=== PATIENT | female | born 1950 | race Caucasian/White ===

== ENCOUNTER 2023-07-29 10:04 | Outpatient (AMB) | payer MEDICARE, MEDICAID, SELFPAY ==
--- NOTE | 2023-07-29 10:22 | MHC.OFFVIS ---
Intake Intake Visit Reasons: Recurrent UTIs Intake Note: New Patient presents for initial visit for recurrent uti Urology Medications: myrbetriq Blood Thinner: none PVR: 1ml's Air Traffic Control Manager Required: No Accompanied by: Self / Same As Patient Allergies Sulfa (Sulfonamide Antibiotics) Allergy (Verified 07/29/23 11:01) Unknown latex Allergy (Uncoded 07/29/23 11:01) Unknown Medication List - Last Reconciled 07/29/23 by RITESH Baldwin- mirabegron ER (Myrbetriq) 25 mg PO DAILY oxycodone 10 mg PO QID PRN oxycodone ER (OxyContin) 10 mg PO BID HPI HPI Comments History of Present Illness Details Hilda is a very pleasant 9-year-old female patient of Dr. Todd Lizarraga. Just past medical history of fibromyalgia and arthritis. She presents to the office today as a new patient for recurrent urinary tract infections. Patient reports noting over the last 2-3 months to have had approximately 5 urinary tract infections at which time for of them were treated with her PCP. She reports approximately a few weeks ago seeking urgent care services and found to have another urinary tract infection and completed antibiotic therapy approximately 1 week ago. She currently reports intermittent episodes of dysuria and bladder pressure. She otherwise denies denies urinary urgency, urinary frequency, incontinence, nocturia, hematuria, foul smelling urine, changes to urinary stream, flank pain, fever, and or chills. She reports having started Myrbetriq with her PCP. In office urinalysis results reviewed with the patient today. PVR 1 mL. Discussed at length potential causes for recurrent urinary tract infections. She denies any issues with constipation and reports to be drinking plenty of water daily. Discussed obtaining retroperitoneal ultrasound for further assessment evaluation. [facility] Medical History Fibromyalgia Arthritis Surgical History Hx of appendectomy History of hysterectomy History of cholecystectomy Review of Systems Const All systems reviewed & are unremarkable except as noted in HPI and below Eyes Reports no additional complaints ENT Reports no additional complaints Card Reports no additional complaints Resp Reports no additional complaints GI Reports no additional complaints Reports as per HPI Musc Reports as per HPI Neuro Reports no additional complaints Psych Reports no additional complaints Endo Reports no additional complaints Mark/Lymph Reports no additional complaints Aller/Immun Reports no additional complaints Physical Exam Const General: cooperative, healthy appearing, comfortable, no acute distress, well developed, alert and awake Orientation/consciousness: patient oriented x3 Limitations: no limitations HEENT Head: Yes normal to inspection, Yes normocephalic and Yes atraumatic Ears: hearing grossly normal bilaterally Eyes General: appearance normal, both eyes and all related structures Neck Neck: Yes normal visual inspection and Yes trachea midline Chest Chest palpation & inspection: normal inspection of the chest Resp Effort & Inspection: normal respiratory effort and able to speak in complete sentences Cardio Rate: regular rate GI Inspection: Yes normal to inspection General: Yes no CVA tenderness Back/Spine/Pelvis Back: no CVA tenderness Skin General skin exam: no rashes or lesions noted Neuro General: patient oriented x3 Extrem General: Yes normal to inspection Psych Appearance: grossly normal and well kempt Mental Status: mental status grossly normal Speech and movement: Normal speech and movement present and Clear speech present Affect: normal affect Attitude: cooperative Thought process: Normal thought process present Thought content: Normal thought content present Insight: Fair insight present (Psych) Judgement: Fair judgement present (Psych) Office Procedures Post Void Residual Post Residual Void Post Void Residual (PVR): 1 33635-[id number] Void Residual by ultrasound Results AMB Urinalysis, Automated UA Leukoctes 0 Rika/uL Last Edit by [employer] on 07/29/23 10:51 UA Nitrite Negative Last Edit by [employer] on 07/29/23 10:51 UA Urobilinogen 0.2 mg/dL Last Edit by [employer] on 07/29/23 10:51 UA Protein 0 mg/dL Last Edit by [employer] on 07/29/23 10:51 UA pH 6.0 Last Edit by [employer] on 07/29/23 10:51 UA Blood 10 Frank/uL Last Edit by [employer] on 07/29/23 10:51 UA Specific [place] 1.010 Last Edit by [employer] on 07/29/23 10:51 UA Ketone Negative Last Edit by [employer] on 07/29/23 10:51 UA Bilirubin 0 mg/dL Last Edit by [employer] on 07/29/23 10:51 UA Glucose 0 mg/dL Last Edit by Osiris Medley on 07/29/23 10:51 Results Reviewed Results Reviewed: Laboratory Last Values Urine pH (Auto) 6.0 07/29/23 10:28 Specific [place] (Auto) 1.010 07/29/23 10:28 Urine Protein (Auto) 0 mg/dL 07/29/23 10:28 Glucose (UA)(Auto) 0 mg/dL 07/29/23 10:28 Urine Ketones (Auto) Negative 07/29/23 10:28 Urine Blood (Auto) 10 Frank/uL 07/29/23 10:28 Urine Nitrite (Auto) Negative 07/29/23 10:28 Urine Bilirubin (Auto) 0 mg/dL 07/29/23 10:28 Urine Urobilinogen (Auto) 0.2 mg/dL 07/29/23 10:28 Leukocyte Esterase (Auto) 0 Rika/uL 07/29/23 10:28 Assessment & Plan Assessment & Plan (1) Sensation of pressure in bladder area: Code(s): R39.89 - Other symptoms and signs involving the genitourinary system (2) Recurrent UTI: Code(s): N39.0 - Urinary tract infection, site not specified Plan In office urinalysis results reviewed with the patient today; as noted above. Discussed at length potential causes of microscopic hematuria Will obtain retroperitoneal ultrasound for further assessment evaluation. Discussed, educated, and encouraged to drink plenty of water daily. Continue Myrbetriq. Start Estrace cream as discussed and prescribed. Discussed at length potential causes for recurrent urinary tract infections. Discussed UTI prevention with D mannose supplement, vitamin-C, increasing fluid intake, behavioral therapy with timed voiding, perineal hygiene and postcoital voiding, and management of constipation with stool softeners and increased fiber intake. Discussed near future in office cystoscopy if symptoms persist and/or worsen. Discussed possible near future microgen testing for further assessment evaluation. Follow-up in 4-6 weeks with imaging to be completed prior; or sooner with any issues, concerns, and or questions. Orders: Orders AMB Urinalysis Automated Today Z13.9 - Encounter for screening, unspecified AMB Post Void Residual by ultrasound Today Z13.9 - Encounter for screening, unspecified Urine Cytology Today Z13.9 - Encounter for screening, unspecified US retroperitoneal comp Today N39.0 - Urinary tract infection, site not specified, R39.89 - Other symptoms and signs involving the genitourinary system Medications: New estradiol 0.01%(0.1mg/gram) pea-sized to urethra daily; 30 days 42.5 grams 2RF N30.20 - Other chronic cystitis without hematuria, N39.0 - Urinary tract infection, site not specified, N95.2 - Postmenopausal atrophic vaginitis Patient Instructions: The patient had an opportunity to ask questions regarding the treatment plan. All questions were answered. Physical exam, labs, and imaging were discussed and reviewed in detail. As well as risks, benefits, and discussion of treatment choices. No major barriers to understanding were identified. The patient expressed understanding and agreement with the above treatment plan. The patient was made aware they should contact our office by phone for worsening of their current condition, the appearance of new symptoms, or with any questions or concerns. Compliance is encouraged with any medications and follow up testing that is ordered. It is a privilege to be allowed the opportunity to participate in? your urological care.? Again, if you have any questions or concerns If you have any questions or concerns please do not hesitate to contact me. The office is [phone]. This note is constructed using voice recognition software. While every effort has been made to ensure accuracy development scientist errors may have been included. Yours sincerely, RITESH Baldwin-DANIELA Coding Level of Care Code New Pt Level 4 (00535) Diagnoses Sensation of pressure in bladder area R39.89 Recurrent UTI N39.0 CPT Codes Post Residual Void - PVR CPT Code: 49423-Kdnl Void Residual by ultrasound ([id number])
== END 2023-07-29 10:57 | disposition home or self-care (01) ==
PROVIDERS: PCP Internal Medicine; Visit Provider Nurse Practitioner Family
DX: R39.89 Other symptoms and signs involving the genitourinary system (principal); N39.0 Urinary tract infection, site not specified
CPT/HCPCS: 99204

== ENCOUNTER 2023-07-29 10:04 | Outpatient (REF) | payer MEDICARE, MEDICAID, SELFPAY ==
[2023-07-29 16:48] LABS: Urine Cytology See Pathology rpt
== END 2023-07-29 10:05 | disposition home or self-care (01) ==
LOC: HO.LNP 10:04
PROVIDERS: PCP Internal Medicine; Visit Provider Nurse Practitioner Family
DX: N30.20 Other chronic cystitis without hematuria (principal); R39.89 Other symptoms and signs involving the genitourinary system; N95.2 Postmenopausal atrophic vaginitis; Z79.891 Long term (current) use of opiate analgesic; Z79.899 Other long term (current) drug therapy
CPT/HCPCS: 51798; 81003; 88112

== ENCOUNTER 2023-08-06 13:00 | Outpatient (REF) | payer MEDICARE, MEDICAID, SELFPAY ==
--- NOTE | ~2023-08-06 | US_ITS ---
EXAMINATION: US RETROPERITONEAL COMPLETE (RENAL) CLINICAL INFORMATION: Urinary tract infection, site not specified. COMPARISON: Renal ultrasound dated 07/14/2007. TECHNIQUE: Real-time imaging of the kidneys and bladder. FINDINGS: RIGHT KIDNEY: 10.9 x 3.5 x 6.1 cm (SAG x AP x TRV). The kidney is normal in size, contour, and echogenicity. Renal cortical thickness is normal. No calculi or focal parenchymal lesions. No hydronephrosis. LEFT KIDNEY: 11.1 x 4.5 x 6.0 cm (SAG x AP x TRV). The kidney is normal in size, contour, and echogenicity. Renal cortical thickness is normal. No calculi or focal parenchymal lesions. No hydronephrosis. BLADDER: Well distended and normal. Bilateral ureteral jets are demonstrated. Prevoid bladder volume is 173 mL. Postvoid bladder volume is 42 mL. US/US retroperitoneal comp IMPRESSION: Unremarkable examination.
== END 2023-08-06 13:01 | disposition home or self-care (01) ==
LOC: HO.HMGCX 13:00
PROVIDERS: PCP Internal Medicine; Visit Provider Nurse Practitioner Family
DX: N39.0 Urinary tract infection, site not specified (principal); R39.89 Other symptoms and signs involving the genitourinary system
CPT/HCPCS: 76770

== ENCOUNTER 2023-08-25 16:40 | Outpatient (REF) | payer MEDICARE, MEDICAID, SELFPAY ==
[2023-08-25 17:41] LABS: Appearance Urine Clear; Color Urine Yellow; Glucose Urine UA Negative (Negative); Leukocyte Esterase Urine Moderate (2+) (Negative); Nitrite Urine Negative (Negative); Specific Gravity - Urine 1.015 (1.005-1.025); UMIC TRIGGER UA YES; Urine Blood Moderate (2+) (Negative); Urine Ketones Negative (Negative); Urine Protein Negative (Neg-Trace)
[2023-08-25 17:47] LABS: Bacteria Urine None Seen (None Seen); Hyaline Casts Urine 0-2 /LPF (0-2); WBC Urine >50 /HPF (0-5)
== END 2023-08-25 16:41 | disposition home or self-care (01) ==
LOC: HO.LAB 16:40
PROVIDERS: Visit Provider Nurse Practitioner Family
DX: N39.0 Urinary tract infection, site not specified (principal)
CPT/HCPCS: 81001; 87086; 87088; 87186

== ENCOUNTER 2023-09-09 09:54 | Outpatient (REF) | payer MEDICARE, MEDICAID, SELFPAY ==
[2023-09-09 15:59] LABS: Urine Cytology See Pathology rpt
== END 2023-09-09 09:55 | disposition home or self-care (01) ==
LOC: HO.LNP 09:54
PROVIDERS: PCP Internal Medicine; Visit Provider Nurse Practitioner Family
DX: N39.0 Urinary tract infection, site not specified (principal); R39.89 Other symptoms and signs involving the genitourinary system
CPT/HCPCS: 51798; 81003; 87086; 87088; 87186; 88112; 99212

== ENCOUNTER 2023-09-09 09:54 | Outpatient (AMB) | payer MEDICARE, MEDICAID, SELFPAY ==
--- NOTE | 2023-09-09 10:06 | A.OFFVIS_ITS ---
Intake Intake Visit Reasons: 6w/US(set) Intake Note: Patient presents for follow up visit for recurrent uti Urology Medications: myrbetriq, estrace cream Blood Thinner: none PVR: 0ml's Recovery Collector Required: No Accompanied by: Self / Same As Patient Allergies Sulfa (Sulfonamide Antibiotics) Allergy (Verified 09/09/23 10:06) Unknown latex Allergy (Uncoded 09/09/23 10:06) Unknown HPI HPI Comments History of Present Illness Details Hilda is a very pleasant 72-year-old female patient of Dr. Todd Lizarraga. She has a past medical history of fibromyalgia and arthritis. She presents to the office today for follow-up of her recurrent urinary tract inf ections. Of note, patient was seen approximately 6 weeks ago as a new patient for recurrent urinary tract infections at which time a retroperitoneal ultrasound was ordered for further assessment evaluation. These results reviewed with the patient today. Bilateral kidneys with no calculi, lesions, and or hydronephrosis noted. The bladder is well distended and normal. Bilateral ureteral jets are demonstrated. Pre void bladder volume is approximately 175 mL. Postvoid bladder volume is approximately 40 mL. When asked patient reports noting over the last 2-3 days urinary urgency and frequen cy however had been doing well prior since her last office visit. She is unsure if this is related to her running out of her Myrbetriq approximately 1 week ago or if she is experiencing the beginning of a urinary tract infection. In office urinalysis results reviewed with the patient today. Negative nitrates and no leukocytes noted. PVR 0ml's. She otherwise denies incontinence, nocturia, hemat uria, foul smelling urine, changes to urinary stream, flank pain, fever, and or chills. When asked she reports compliance with Estrace cream as prescribed. Discussed at length potential causes for recurrent urinary tract infections. She denies any issues with constipation and reports to be drinking plenty of water daily. [facility] Medical History Fibromyalgia Arthritis Surgical History Hx of appendectomy History of hysterectomy History of cholecystectomy Review of Systems Const All systems reviewed & are unremarkable except as noted in HPI and below Eyes Reports no additional complaints ENT Reports no additional complaints Card Reports no additional complaints Resp Reports no additional complaints GI Reports no additional complaints Reports as per HPI Musc Reports as per HPI Neuro Reports no additional complaints Psych Reports no additional complaints Endo Reports no additional complaints Mark/Lymph Reports no additional complaints Aller/Immun Reports no additional complaints Physical Exam Const General: cooperative, healthy appearing, comfortable, no acute distress, well developed, alert and awake Orientation/consciousness: patient oriented x3 Limitations: no limitations HEENT Head: Yes normal to inspection, Yes normocephalic and Yes atraumatic Ears: hearing grossly normal bilaterally Eyes General: appearance normal, both eyes and all related structures Neck Neck: Yes normal visual inspection and Yes trachea midline Chest Chest palpation & inspection: normal inspection of the chest Resp Effort & Inspection: normal respiratory effort and able to speak in complete sentences Cardio Rate: regular rate GI Inspection: Yes normal to inspection General: Yes no CVA tenderness Back/Spine/Pelvis Back: no CVA tenderness Skin General skin exam: no rashes or lesions noted Neuro General: patient oriented x3 Extrem General: Yes normal to inspection Psych Appearance: grossly normal and well kempt Mental Status: mental status grossly normal Speech and movement: Normal speech and movement present and Clear speech present Affect: normal affect Attitude: cooperative Thought process: Normal thought process present Thought content: Normal thought content present Insight: Fair insight present (Psych) Judgement: Fair judgement present (Psych) Office Procedures Post Void Residual Post Residual Void Post Void Residual (PVR): 0 [id number] Void Residual by ultrasound Results AMB Urinalysis, Automated UA Leukoctes 0 Rika/uL Last Edit by C-nario on 09/09/23 10:31 UA Nitrite Negative Last Edit by C-nario on 09/09/23 10:31 UA Urobilinogen 0.2 mg/dL Last Edit by C-nario on 09/09/23 10:31 UA Protein 0 mg/dL Last Edit by C-nario on 09/09/23 10:31 UA pH 6.0 Last Edit by C-nario on 09/09/23 10:31 UA Blood 10 Frank/uL Last Edit by C-nario on 09/09/23 10:31 UA Specific [place] 1.010 Last Edit by C-nario on 09/09/23 10:31 UA Ketone Negative Last Edit by Osiris Medley on 09/09/23 10:31 UA Bilirubin 0 mg/dL Last Edit by Osiris Medley on 09/09/23 10:31 UA Glucose 0 mg/dL Last Edit by Osiris Medley on 09/09/23 10:31 Results Reviewed Results Reviewed: Laboratory Last Values Urine pH (Auto) 6.0 09/09/23 10:08 Specific [place] (Auto) 1.010 09/09/23 10:08 Urine Protein (Auto) 0 mg/dL 09/09/23 10:08 Glucose (UA)(Auto) 0 mg/dL 09/09/23 10:08 Urine Ketones (Auto) Negative 09/09/23 10:08 Urine Blood (Auto) 10 Frank/uL 09/09/23 10:08 Urine Nitrite (Auto) Negative 09/09/23 10:08 Urine Bilirubin (Auto) 0 mg/dL 09/09/23 10:08 Urine Urobilinogen (Auto) 0.2 mg/dL 09/09/23 10:08 Leukocyte Esterase (Auto) 0 Rika/uL 09/09/23 10:08 Date of Service: 08/06/23 EXAMINATION: US RETROPERITONEAL COMPLETE (RENAL) FINDINGS: RIGHT KIDNEY: 10.9 x 3.5 x 6.1 cm (SAG x AP x TRV). The kidney is normal in size, contour, and echogenicity. Renal cortical thickness is normal. No calculi or focal parenchymal lesions. No hydronephrosis. LEFT KIDNEY: 11.1 x 4.5 x 6.0 cm (SAG x AP x TRV). The kidney is normal in size, contour, and echogenicity. Renal cortical thickness is normal. No calculi or focal parenchymal lesions. No hydronephrosis. BLADDER: Well distended and normal. Bilateral ureteral jets are demonstrated. Prevoid bladder volume is 173 mL. Postvoid bladder volume is 42 mL. IMPRESSION: Unremarkable examination. Assessment & Plan Assessment & Plan (1) Sensation of pressure in bladder area: Code(s): R39.89 - Other symptoms and signs involving the genitourinary system (2) Recurrent UTI: Code(s): N39.0 - Urinary tract infection, site not specified Plan In office urinalysis results reviewed with the patient today; as noted above; will send for urine culture Recent retroperitoneal ultrasound results reviewed with the patient today; as noted above. Discussed, educated, and encouraged to drink plenty of water daily. Continue Myrbetriq; refill provided Continue Estrace cream as discussed and prescribed Discussed UTI prevention with D mannose supplement, vitamin-C, increasing fluid intake, behavioral therapy with timed voiding, perineal hygiene and postcoital voiding, and management of constipation with stool softeners and increased fiber intake. Discussed near future in office cystoscopy if symptoms persist and/or worsen. Discussed possible near future microgen testing for further assessment evaluation. Follow-up in 1 month with PVR; or sooner with any issues, concerns, and or questions. Orders: Orders Urine Culture Today N39.0 - Urinary tract infection, site not specified Urine Cytology Today N39.0 - Urinary tract infection, site not specified AMB Urinalysis Automated Today Z13.9 - Encounter for screening, unspecified AMB Post Void Residual by ultrasound Today N39.0 - Urinary tract infection, site not specified Medications: Changed From mirabegron ER (Myrbetriq) 25 mg PO DAILY To mirabegron ER (Myrbetriq) 25 mg PO DAILY 90 days 90 tabs 3RF Patient Instructions: The patient had an opportunity to ask questions regarding the treatment plan. All questions were answered. Physical exam, labs, and imaging were discussed and reviewed in detail. As well as risks, benefits, and discussion of treatment choices. No major barriers to understanding were identified. The patient expressed understanding and agreement with the above treatment plan. The patient was made aware they should contact our office by phone for worsening of their current condition, the appearance of new symptoms, or with any questions or concerns. Compliance is encouraged with any medications and follow up testing that is ordered. It is a privilege to be allowed the opportunity to participate in? your urological care.? Again, if you have any questions or concerns If you have any questions or concerns please do not hesitate to contact me. The office is [phone]. This note is constructed using voice recognition software. While every effort has been made to ensure accuracy medical charge entry specialist errors may have been included. Yours sincerely, MARGARITA Baldwin Coding Level of Care Code Est Pt Level 3 (44158) Diagnoses Sensation of pressure in bladder area R39.89 Recurrent UTI N39.0 CPT Codes Post Residual Void - PVR CPT Code: 39880-Lbph Void Residual by ultrasound ([id number])
== END 2023-09-09 11:24 | disposition home or self-care (01) ==
PROVIDERS: PCP Internal Medicine; Visit Provider Nurse Practitioner Family
DX: R39.89 Other symptoms and signs involving the genitourinary system (principal); N39.0 Urinary tract infection, site not specified
CPT/HCPCS: 99213

== ENCOUNTER 2023-10-08 15:55 | Outpatient (REF) | payer MEDICARE, MEDICAID, SELFPAY ==
[2023-10-08 17:21] LABS: Appearance Urine Clear; Color Urine Yellow; Glucose Urine UA Negative (Negative); Leukocyte Esterase Urine Negative (Negative); Nitrite Urine Negative (Negative); PH 5.5 (5.0-9.0); Urine Blood Negative (Negative); Urine Ketones Negative (Negative); Urine Protein Negative (Neg-Trace)
[2023-10-08 17:26] LABS: Bacteria Urine None Seen (None Seen); Hyaline Casts Urine 0-2 /LPF (0-2); RBC Urine 0-2 /HPF (0-2); Squamous Epithelial Cell Urine 0-2 /HPF (0-2); WBC Urine 0-5 /HPF (0-5)
== END 2023-10-08 15:56 | disposition home or self-care (01) ==
LOC: HO.LAB 15:55
PROVIDERS: PCP Internal Medicine; Referring Provider Internal Medicine; Visit Provider Nurse Practitioner Family
DX: N39.0 Urinary tract infection, site not specified (principal)
CPT/HCPCS: 81001; 87086

== ENCOUNTER 2023-10-09 11:42 | Outpatient (AMB) | payer MEDICARE, MEDICAID, SELFPAY ==
--- NOTE | 2023-10-09 12:13 | A.OFFVIS_ITS ---
Intake Intake Visit Reasons: 1m/PVR Intake Note: Patient presents for follow up visit for recurrent uti Urology Medications: myrbetriq, estrace cream Blood Thinner: none PVR: 45ml's Sample Prep Technician Required: No Accompanied by: Self / Same As Patient Allergies Sulfa (Sulfonamide Antibiotics) Allergy (Verified 10/09/23 13:21) Unknown macrobid Allergy (Mild, Uncoded 10/09/23 13:21) Hives latex Allergy (Uncoded 10/09/23 13:21) Unknown Medication List - Last Reconciled 10/09/23 by MARGARITA Baldwin estradiol 0.01%(0.1mg/gram) pea-sized to urethra daily; 30 days oxycodone 10 mg PO QID PRN oxycodone ER (OxyContin) 10 mg PO BID tadalafil (Cialis) 5 mg PO DAILY 30 days HPI HPI Comments History of Present Illness Details Hilda is a very pleasant 72-year-old female patient of Dr. Todd Lizarraga. She has a past medical history of fibromyalgia and arthritis. She presents to the office today for follow-up of her recurrent urinary tract infections. In discussion with the patient today she reports feeling urinary tract infection like symptoms over the last 3 days. She reports having called office here yesterday and going to the lab for urine culture. During patient's office visit urine culture remained pending however it has since been resulted and appears with mixed bacteria. Will review with nursing and have patient come in for [facility] for further assessment evaluation. Patient with previous UTIs on 08/25 and 09/09 E coli. She has since been treated with ampicillin t.i.d. as this is susceptible per urine culture. When asked she continues to report feelings of bladder pressure and urinary frequency. She otherwise denies incontinence, nocturia, hematuria, dysuria, foul smelling urine, changes to urinary stream, flank pain, fever, and or chills. Previous workup has included a retroperitoneal ultrasound noting bilateral kidneys with no calculi, lesions, and or hydronephrosis noted. The bladder is well distended and normal. Bilateral ureteral jets are demonstrated. Pre void bladder volume is approximately 175 mL. Postvoid bladder volume is approximately 40 mL. When asked she reports compliance with Estrace cream as prescribed. Discussed at length potential causes for recurrent urinary tract infections. She denies any issues with constipation and reports to be drinking plenty of water daily. Discussed trial of Cialis for bladder stability. She reports noting no improvement in bladder spasms with Myrbetriq therefore will discontinue at this time. Discussed follow-up in office cystoscopy for further assessment evaluation. PFSH Medical History Fibromyalgia Arthritis Surgical History Hx of appendectomy History of hysterectomy History of cholecystectomy Review of Systems Const All systems reviewed & are unremarkable except as noted in HPI and below Eyes Reports no additional complaints ENT Reports no additional complaints Card Reports no additional complaints Resp Reports no additional complaints GI Reports no additional complaints Reports as per HPI Musc Reports as per HPI Neuro Reports no additional complaints Psych Reports no additional complaints Endo Reports no additional complaints Mark/Lymph Reports no additional complaints Aller/Immun Reports no additional complaints Physical Exam Const General: cooperative, healthy appearing, comfortable, no acute distress, well developed, alert and awake Orientation/consciousness: patient oriented x3 Limitations: no limitations HEENT Head: Yes normal to inspection, Yes normocephalic and Yes atraumatic Ears: hearing grossly normal bilaterally Eyes General: appearance normal, both eyes and all related structures Neck Neck: Yes normal visual inspection and Yes trachea midline Chest Chest palpation & inspection: normal inspection of the chest Resp Effort & Inspection: normal respiratory effort and able to speak in complete sentences Cardio Rate: regular rate GI Inspection: Yes normal to inspection General: Yes no CVA tenderness Back/Spine/Pelvis Back: no CVA tenderness Skin General skin exam: no rashes or lesions noted Neuro General: patient oriented x3 Extrem General: Yes normal to inspection Psych Appearance: grossly normal and well kempt Mental Status: mental status grossly normal Speech and movement: Normal speech and movement present and Clear speech present Affect: normal affect Attitude: cooperative Thought process: Normal thought process present Thought content: Normal thought content present Insight: Fair insight present (Psych) Judgement: Fair judgement present (Psych) Office Procedures Post Void Residual Post Residual Void Post Void Residual (PVR): 45 [id number] Void Residual by ultrasound Results AMB Urinalysis, Automated UA Leukoctes 125 Rika/uL Last Edit by Osiris Medley on 10/09/23 12:24 UA Nitrite Negative Last Edit by Osiris Medley on 10/09/23 12:24 UA Urobilinogen 0.2 mg/dL Last Edit by Osiris Medley on 10/09/23 12:24 UA Protein 0 mg/dL Last Edit by Osiris Medley on 10/09/23 12:24 UA pH 6.0 Last Edit by Osiris Medley on 10/09/23 12:24 UA Blood 10 Frank/uL Last Edit by Osiris Medley on 10/09/23 12:24 UA Specific Ambrose 1.025 Last Edit by Osiris Medley on 10/09/23 12:24 UA Ketone Negative Last Edit by Osiris Medley on 10/09/23 12:24 UA Bilirubin 0 mg/dL Last Edit by Osiris Medley on 10/09/23 12:24 UA Glucose 0 mg/dL Last Edit by Osiris Medley on 10/09/23 12:24 Results Reviewed Results Reviewed: Laboratory Last Values Urine pH (Auto) 6.0 10/09/23 12:15 Specific Ambrose (Auto) 1.025 10/09/23 12:15 Urine Protein (Auto) 0 mg/dL 10/09/23 12:15 Glucose (UA)(Auto) 0 mg/dL 10/09/23 12:15 Urine Ketones (Auto) Negative 10/09/23 12:15 Urine Blood (Auto) 10 Frank/uL 10/09/23 12:15 Urine Nitrite (Auto) Negative 10/09/23 12:15 Urine Bilirubin (Auto) 0 mg/dL 10/09/23 12:15 Urine Urobilinogen (Auto) 0.2 mg/dL 10/09/23 12:15 Leukocyte Esterase (Auto) 125 Rika/uL 10/09/23 12:15 Assessment & Plan Assessment & Plan (1) Sensation of pressure in bladder area: Code(s): R39.89 - Other symptoms and signs involving the genitourinary system (2) Recurrent UTI: Code(s): N39.0 - Urinary tract infection, site not specified Plan In office urinalysis results reviewed with the patient today; as noted above PVR 45 mLs Will discuss with nursing to coordinate obtaining urine for microgen for further assessment and evaluation. Start Cialis 5 mg daily as discussed and prescribed. Discussed, educated, and encouraged to drink plenty of water daily. Continue Estrace cream as discussed and prescribed Discussed UTI prevention with D mannose supplement, vitamin-C, increasing fluid intake, behavioral therapy with timed voiding, perineal hygiene and postcoital voiding, and management of constipation with stool softeners and increased fiber intake. Discussed possible symptoms related to post UTI syndrome. Discussed bladder triggers/irritants. Discussed in office cystoscopy for further assessment evaluation. Follow-up with nursing for microgen testing. Follow-up in office cystoscopy; or sooner with any issues, concerns, and or questions. Orders: Orders AMB Urinalysis Automated 10/09/23 Z13.9 - Encounter for screening, unspecified AMB Post Void Residual by ultrasound 10/09/23 N39.0 - Urinary tract infection, site not specified Medications: New tadalafil (Cialis) [id number] [facility] [id number] Member [id number] 5 mg PO DAILY 30 days 30 tabs 1RF Discontinued mirabegron ER (Myrbetriq) Discontinued Reason: Doctor's Order 25 mg PO DAILY 90 days 90 tabs 3RF Patient Instructions: The patient had an opportunity to ask questions regarding the treatment plan. All questions were answered. Physical exam, labs, and imaging were discussed and reviewed in detail. As well as risks, benefits, and discussion of treatment choices. No major barriers to understanding were identified. The patient expressed understanding and agreement with the above treatment plan. The patient was made aware they should contact our office by phone for worsening of their current condition, the appearance of new symptoms, or with any questions or concerns. Compliance is encouraged with any medications and follow up testing that is ordered. It is a privilege to be allowed the opportunity to participate in? your urological care.? Again, if you have any questions or concerns If you have any questions or concerns please do not hesitate to contact me. The office is [phone]. This note is constructed using voice recognition software. While every effort has been made to ensure accuracy fruit trimmer errors may have been included. Yours sincerely, MARGARITA Baldwin Coding Level of Care Code Est Pt Level 4 (40196) Diagnoses Sensation of pressure in bladder area R39.89 Recurrent UTI N39.0 CPT Codes Post Residual Void - PVR CPT Code: 22712-Wene Void Residual by ultrasound ([id number])
== END 2023-10-09 12:50 | disposition home or self-care (01) ==
PROVIDERS: PCP Internal Medicine; Visit Provider Nurse Practitioner Family
DX: R39.89 Other symptoms and signs involving the genitourinary system (principal); N39.0 Urinary tract infection, site not specified
CPT/HCPCS: 99214

== ENCOUNTER → 2023-10-09 11:42 | Outpatient (BNVA) | payer MEDICARE, MEDICAID, SELFPAY | PROVIDERS: PCP Internal Medicine; Visit Provider Nurse Practitioner Family | DX: R39.89 Other symptoms and signs involving the genitourinary system (principal); N39.0 Urinary tract infection, site not specified | CPT/HCPCS: 51798; 81003; 99212 ==

== ENCOUNTER → 2023-10-13 09:57 | Outpatient (BNVA) | payer MEDICARE, MEDICAID, SELFPAY | PROVIDERS: PCP Internal Medicine; Visit Provider Nurse Practitioner Family ==

== ENCOUNTER 2024-06-06 13:35 | Outpatient (REF) | payer MEDICARE, SELFPAY ==
[2024-06-06 16:00] LABS: Appearance Urine Clear; Color Urine Yellow; Glucose Urine UA Negative (Negative); Leukocyte Esterase Urine Moderate (2+) (Negative); Nitrite Urine Negative (Negative); PH 6.5 (5.0-9.0); Specific Gravity - Urine 1.015 (1.005-1.025); UMIC TRIGGER UA YES; Urine Blood Large (3+) (Negative); Urine Ketones Negative (Negative); Urine Protein Negative (Neg-Trace)
[2024-06-06 16:06] LABS: Bacteria Urine 4+ (None Seen); Hyaline Casts Urine 0-2 /LPF (0-2); Squamous Epithelial Cell Urine 0-2 /HPF (0-2); WBC Urine >50 /HPF (0-5)
== END 2024-06-06 13:36 | disposition home or self-care (01) ==
LOC: HO.LAB 13:35
PROVIDERS: Visit Provider Nurse Practitioner Family
DX: N39.0 Urinary tract infection, site not specified (principal); R39.89 Other symptoms and signs involving the genitourinary system
CPT/HCPCS: 81001; 87086; 87088; 87186

== ENCOUNTER 2024-06-29 15:51 | Outpatient (REF) | payer MEDICARE, SELFPAY ==
[2024-06-29 17:22] LABS: Appearance Urine Cloudy; Color Urine Yellow; Glucose Urine UA Negative (Negative); Leukocyte Esterase Urine Large (3+) (Negative); Nitrite Urine Positive (Negative); Specific Gravity - Urine 1.015 (1.005-1.025); UMIC TRIGGER UA YES; Urine Blood Trace (Negative); Urine Ketones Negative (Negative); Urine Protein Trace mg/dL (Neg-Trace)
[2024-06-29 17:25] LABS: Bacteria Urine 4+ (None Seen); Hyaline Casts Urine 0-2 /LPF (0-2); WBC Urine >50 /HPF (0-5)
== END 2024-06-29 15:52 | disposition home or self-care (01) ==
LOC: HO.LAB 15:51
PROVIDERS: PCP Internal Medicine; Visit Provider Nurse Practitioner Family
DX: N39.0 Urinary tract infection, site not specified (principal); R39.89 Other symptoms and signs involving the genitourinary system
CPT/HCPCS: 81001; 87086; 87088; 87186

== ENCOUNTER 2024-07-01 16:06 | Emergency (ER) | payer MEDICARE, SELFPAY ==
[2024-07-01 16:29] VITALS: BP 147/66; PULSE 62; RESP 18; TEMP 36.8; O2SAT 97; BMI 24.7
--- NOTE | 2024-07-01 16:29 | ED_ITS ---
HPI - Female Genitourinary General Chief complaint: Urogenital-Female Stated complaint: UTI Time Seen by Provider: 07/01/24 17:28 Source: patient Mode of arrival: ambulatory Limitations: no limitations History of Present Illness ED Provider: analisa WANG Narrative: Patient is a 73-year-old female presenting to the ED with complaint of ongoing dysuria and lower abdominal pressure, chills. She called her urologist on 06/29 and had UA ordered outpatient, was started on cefuroxime for a UTI. States she is not feeling much better but is also not feeling worse. Denies any nausea or vomiting. Has taken three doses of the cefuroxime so far. Denies back or flank pain. MD elicited complaint: dysuria Pertinent past history: recurrent UTIs Onset (ago): day(s) Female Urogenital Radiation: Suprapubic Quality of pain: aching Vaginal discharge: none Vaginal bleeding: none Urinary symptoms: Dysuria Associated symptoms: chills Treatment prior to arrival: other Related Data Home Medications ?Medication ?Instructions ?Recorded ?Confirmed oxycodone 10 mg tablet,crush 10 mg PO BID 07/29/23 resistant,extended release 12 hr (OxyContin) Previous Rx's ?Medication ?Instructions ?Recorded estradiol 0.01% (0.1 mg/gram) See Rx Instructions .Route DAILY 07/29/23 vaginal cream 30 days #42.5 grams tadalafil 5 mg tablet (Cialis) 5 mg PO DAILY 30 days #30 tabs 10/09/23 cefuroxime axetil 500 mg tablet 500 mg PO BID 10 days #20 tabs 06/29/24 Allergies Allergy/AdvReac Type Severity Reaction Status Date / Time Sulfa (Sulfonamide Allergy Unknown Verified 07/01/24 16:32 Antibiotics) macrobid Allergy Mild Hives Uncoded 07/01/24 16:32 latex Allergy Unknown Uncoded 07/01/24 16:32 Review of Systems 2 Review of Systems: As per HPI. Yes all other systems are reviewed and are negative Constitutional: Constitutional: Reports as per HPI PMF Past Medical History Medical History Fibromyalgia Arthritis Surgical History Hx of appendectomy History of hysterectomy History of cholecystectomy Social History Social History Advance Directives: No Advance Directives Information Provided: No Do you have a plan to hurt others: No Plan Physical Exam 2 Vital Signs: Vital Signs: Last Vital Signs Temp 98.0 F 07/01/24 17:05 Pulse 64 07/01/24 17:05 Resp 18 07/01/24 17:05 BP 145/66 H 07/01/24 17:05 Pulse Ox 97 07/01/24 17:05 O2 Del Method Room Air 07/01/24 17:05 BMI result Body Mass Index 24.7 Vital signs have been reviewed and appear to be correct. Blood pressure normal. Heart rate normal. Respiratory rate normal. Temperature normal. Oxygen saturation normal. Const: General: cooperative, healthy appearing and no acute distress O rientation/consciousness: oriented to person, oriented to place, oriented to time and patient oriented x3 Limitations: no limitations HEENT: Head: Yes normocephalic and Yes atraumatic Ears: external ears normal General nose exam: Normal external nose present Face and sinus: Yes face symmetric Mouth: oropharynx normal and moist mucous membranes Throat: Yes uvula midline Eyes: Pupils: Equal, round and reactive pupils present Neck: Neck: Yes normal visual inspection and Yes supple Resp: Effort & Inspection: normal respiratory effort and able to speak in complete sentences Auscultation: clear to auscultation bilaterally Cardio: Rate: regular rate Rhythm: regular rhythm Heart sounds: S1 normal heart sound present and S2 normal heart sound present GI: Palpation (GI): Soft to palpation and nontender Auscultation: n ormoactive bowel sounds : General: Yes no CVA tenderness Back/Spine/Pelvis: Back: no CVA tenderness Skin: General skin exam: elasticity normal and turgor normal Neuro: General: oriented to person, oriented to place, oriented to time, patient oriented x3, moves all extremities, no focal motor deficits and CN's II- XI intact bilaterally Cranial nerves: Yes Equal, round and reactive pupils present Cognition (Neuro): normal cognition Extrem: General: Yes full ROM, Yes no pedal edema and Yes no calf tenderness Psych: Mental Status: mental status grossly normal Affect: normal affect Thought process: Normal thought process present Course Course Course Narrative: This is a Rapid Medical Examination (RME) performed by Sissy Sousa PA-C in triage. Full HPI, ROS, assessment and treatment plan per primary provider in the Main ED. 73 yo female here for abd pain. saw PCP yesterday. dx with UTI. presvribed ceftin 500 bid. has taken one day of abx. now reports increasing lower abdominal pain, dysuria, and weakness. feels like she has a fever, no documented temp. no n/v, flank pain. + no CVAT Plan: labs, UA Medical Decision Making Medical Decision Making [facility] Narrative: Patient is a 73-year-old female presenting to the ED with complaint of ongoing dysuria and lower abdominal pressure, chills. On exam patient is awake, A+Ox3, VS WNL, afebrile, normal neurological exam without focal deficits, physical exam findings as above. Given reported symptoms and physical exam findings, initial differential includes UTI not susceptible to cefuroxime, pyelonephritis. Labs unremarkable. Review of urine culture from specimen provided on 06/29 shows haider sensitive E. coli. Discussed with patient that cefuroxime should be sufficient to treat this UTI. She has no CVA tenderness on exam and is afebrile, do not suspect pyelonephritis. Discussed with patient that it may take 1 or 2 more doses of her cefuroxime before she sees improvement in symptoms and instructed patient to complete full course of antibiotics as prescribed. Recommended following up with urology. Return precautions discussed at bedside. Patient verbalized understanding of and agreement with plan. Differential Diagnosis Differential Diagnoses: The differential diagnosis associated with the presentation includes As per [facility]. Admission/Observation Consideration of admission/observation: Escalation of care including admission/observation considered Patient would have been admitted to the hospital had their work up had any findings where hospital admission was appropriate and their clinical presentation warranted hospital admission. Lab Data [facility] Lab Attestation statement: I reviewed the patient's lab results. As per [facility]. 07/01/24 17:15 07/01/24 17:15 Labs: Lab Results 07/01/24 Range/Units 17:15 WBC 4.7 L (4.8-10.8) X10*3/uL RBC 4.42 (4.20-5.50) X10*6/uL Hgb 12.5 (12.0-16.0) g/dl Hct 38.1 (37.0-47.0) % MCV 86.2 (80.0-98.0) fL MCH 28.3 (27.0-33.0) pg MCHC 32.8 (31.0-35.0) g/dl RDW 13.4 (11.0-16.0) % Plt Count 255 (160-400) X10*3/uL MPV 8.9 L (9.4-12.3) fL Immature Gran % (Auto) 0.2 (0.0-0.4) % Neut % (Auto) 60.8 (45-73) % Lymph % (Auto) 21.2 (20-40) % Emery % (Auto) 13.3 H (2-11) % Eos % (Auto) 3.6 (0-4) % Baso % (Auto) 0.9 (0-2) % Lymph # (Auto) 1.0 L (1.2-4.9) X10*3/uL Emery # (Auto) 0.6 (0.1-1.2) X10*3/uL Eos # (Auto) 0.2 (0.0-0.4) X10*3/uL Baso # (Auto) 0.0 (0.0-0.2) X10*3/uL Abs Immat Gran (auto) 0.01 (0.00-0.03) X10*3/uL Absolute Neuts (auto) 2.8 (2.0-8.3) x10*3/uL Absolute Nucleated RBC 0.000 (0.0-0.012) X10*3/uL Nucleated RBC % (auto) 0.0 (0.0-0.2) /100WBC Sodium 135 (135-145) mmol/L Potassium 4.5 (3.3-5.1) mmol/L Chloride 100 (96-108) mmol/L Carbon Dioxide 31 H (22-29) mmol/L Anion Gap 9 L (12-20) BUN 9 (9-16) mg/dL Creatinine 0.86 (0.5-1.4) mg/dL Estim Creat Clear Calc 51.6 Estimated GFR > 60 Random Glucose 88 (60-115) mg/dL Calcium 9.2 (8.4-10.2) mg/dL Total Bilirubin 0.3 (0.0-1.0) mg/dL AST 18 (5-31) U/L ALT 14 (0-31) U/L Alkaline Phosphatase 90 (39-117) U/L Total Protein 7.0 (6.5-8.0) g/dL Albumin 3.9 (3.5-5.0) g/dL External Record Review External record reviewed: Inpatient record, Office record and Outpatient record Discharge Plan Discharge Clinical Impression: Recurrent UTI Patient Disposition: Home, Self-Care Instructions: Urinary Tract Infection in Women (DC) Additional Instructions: You were evaluated in the emergency department today for urinary symptoms. Your labs were reassuring and your urine culture showed that you are on the appropriate antibiotics to treat this infection. Complete the full course of antibiotics prescribed by your urologist until all of the medication is gone, even if symptoms improve. Return to the emergency department if you develop increasing pain, fever 100.4? F or greater, persistent vomiting, back or flank pain or any other concerning symptoms. Prescriptions: No Action cefuroxime axetil 500 mg tablet 500 mg PO BID 10 Days Qty: 20 0RF tadalafil [Cialis] 5 mg tablet 5 mg PO DAILY 30 Days Qty: 30 1RF Rx Instructions: [id number] [facility] [id number] Member [id number] oxycodone [OxyContin] 10 mg tablet,oral only,ext.rel.12 hr 10 mg PO BID estradiol 0.01 % (0.1 mg/gram) cream See Rx Instructions .Route DAILY 30 Days Qty: 42.5 2RF Rx Instructions: pea-sized to urethra daily; Print Language: Irish
[2024-07-01 17:05] VITALS: BP 145/66; PULSE 64; RESP 18; TEMP 36.7; O2SAT 97
--- OUTSIDE RECORDS SUMMARY | 2024-07-01 17:06 | XMS_ITS | Continuity of Care Document ---
Author Organization [facility] Adult Address [address] [place] [address]- Care Team Providers Care Planetarium Sky Show Technician Name Role Phone Alba Moore MD Primary Care Physician Encounter [facility] [place] Date(s): 10/09/23 - 10/16/23 [facility] Adult [address] [place] [address]- Attending Physician: Alba Moore MD Allergies, Adverse Reactions, Alerts Substance Reaction Severity Status sulfa drugs Active iodinated radiocontrast dyes Active Cipro hives Active Bactrim Active Latex Active Seafood Active Other Environmental Allergy Active iodine Active Bananas Active Avocado Active Kiwi Active Immunizations Given and Recorded Vaccine Date Status Refusal Reason influenza virus vaccine, inactivated 08/10/22 Grady rded influenza virus vaccine, inactivated 11/25/21 Grady rded influenza virus vaccine, inactivated 08/05/20 Grady rded influenza virus vaccine, inactivated 1 09/22/19 Re corded influenza virus vaccine, inactivated 07/05/18 Grady rded influenza virus vaccine, inactivated 09/24/17 Grady rded influenza virus vaccine, inactivated 10/18/15 Grady rded influenza virus vaccine, inactivated 07/18/13 Give n influenza virus vaccine, inactivated 2 06/02/12 Gi rianna influenza virus vaccine, inactivated 3 07/11/11 Gi rianna SARS-CoV-2 (COVID-19) mRNA-1273 vaccine 02/01/21 R ecorded SARS-CoV-2 (COVID-19) mRNA-1273 vaccine 01/04/21 R ecorded Influenza Virus Vaccine (oldterm) 07/11/20 Recorde d pneumococcal 23-valent vaccine 4 08/05/19 Given pneumococcal 23-valent vaccine 5 11/07/13 Given pneumococcal 13-valent vaccine 05/19/18 Given Diphth-Tetanus Toxoids Adsorbed(oldterm) 08/22/08 Given 1Result Comment: [facility] [id number] [facility] 3Admin Note: sarah 4Result Comment: [id number] 5Admin Note: [facility] Medications ClearLax oral powder for reconstitution 1 scoop, By Mouth, Daily, PRN Constipation, dissolve in water or juice, # 527 Gm, 5 Refills, Maintenance, 11/25/19 12:24:00 EST, [facility] #[id number], 1 scoop By Mouth Daily,PRN:Constipation,Instr:dissolve in water or juice, 158, cm, 09/30/19 1... Start Date: 11/25/19 Status: Ordered EpiPen 2-Minor 0.3 mg injectable kit See Instructions, Intramuscular Once, # 1 each, 1 Refills, Soft Stop, 07/08/21 14:29:00 EDT, [facility] #[id number], 158, cm, 06/28/21 11:31:00 EDT, Height, 65.7, kg, 06/16/21 13:22:00 EDT, Dry Weight Start Date: 07/08/21 Status: Ordered Estrace Vaginal Cream 0.1 mg/g 1 gram, Vaginally, Daily at bedtime, Apply daily at bedtime for 2 weeks and then 2 times per week, # 42 Gm, 3 Refills, Maintenance, 07/15/23 15:07:00 EDT, [facility] #[id number], 158, cm, 07/15/23 14:57:00 EDT, Height, 63.5, kg, 07/09/23 13:09:00... Start Date: 07/15/23 Status: Ordered ibuprofen 600 mg oral tablet 1, tablet, By Mouth, 3 times a day, # 90 tablet, Refills 3, Tot. Refills 3, Maintenance, 05/04/23 14:23:00 EDT, Route to Pharmacy Electronically, [facility] #[id number], 158, cm, 04/01/23 7:42:00 EDT, Height, 64, kg, 07/10/21 9:37:00 EDT, Dry Weight Start Date: 05/04/23 Status: Ordered Myrbetriq 25 mg oral tablet, extended release 1 tablet = 25 mg, By Mouth, Daily, # 30 tablet, 5 Refills, Maintenance, 07/15/23 15:07:00 EDT, [facility] #[id number], Partial fill upon patient request if the prescription is for a schedule II opioid drug., 158, cm, 07/15/23 14:57:00 EDT, Height... Start Date: 07/15/23 Status: Ordered Narcan 4 mg/0.1 mL nasal spray = 4 mg, Nares, Both, Once, may repeat every 2 to 3 minutes until patient responds, # 1 each, 0 Refills, Soft Stop, 11/25/22 9:21:00 EST, [facility] #[id number], Partial fill upon patient requestif the prescription is for a schedule II opioid alva... Start Date: 11/25/22 Status: Ordered omeprazole 20 mg oral enteric coated capsule 1 capsule = 20 mg, By Mouth, Daily, # 90 capsule, 0 Refills, Maintenance, 04/07/19 11:02:23 EDT, ECCapsule Start Date: 04/07/19 Stop Date: 07/06/19 Status: Ordered oxyCODONE 10 mg oral tablet See Instructions, CALENDAR. 0.5-1 tablet By Mouth Every 4 hours, max 4 tabs in 24 hours, # 112 tablet, 0 Refills, Maintenance, 09/23/23 13:18:00 EST, [facility] #[id number], CALENDAR, 158, cm, 07/15/23 15:12:00 EDT, Height, 63.5, kg, 07/09/23 13:... Start Date: 09/23/23 Status: Ordered OxyCONTIN 10 mg oral tablet, extended release 10 mg, 1, tablet, By Mouth, Every 12 hours, CALENDAR, # 56 tablet, Refills 0, Tot. Refills 0, Maintenance, 09/23/23 13:18:00 EST, Route to Pharmacy Electronically, [facility] #[id number], Partial fill upon patient request; CALENDAR, 158, cm, 10/0... Start Date: 09/23/23 Status: Ordered Ventolin HFA 108 mcg/inh inhalation aerosol with adapter 2 puffs, Inhalation, Every 4 hours, PRN Wheezing/Shortness of Breath, # 1 each, 5 Refills, Maintenance, 05/20/23 12:01:00 EDT, [facility] #[id number], Asthma J45.909;, 158, cm, 04/01/23 7:42:00 EDT, Height, 64, kg, 07/10/21 9:37:00 EDT, Dry Weight Start Date: 05/20/23 Status: Ordered Wellbutrin XL 150 mg/24 hours oral tablet, extended release 1 tablet = 150 mg, By Mouth, Every 24 hours, # 30 tablet, 1 Refills, Maintenance, 07/15/23 15:14:00EDT, ER Tablet, [facility] #[id number], Partial fill upon patient request if the prescription is for a schedule II opioid drug., 158, cm, 07/15/23... Start Date: 07/15/23 Status: Ordered Problem List Condition Confirmation Course Effective Dates Status H ealth Status Informant Anxiety Confirmed Active Asthma, mild, intermittent Confirmed 1999 Active Vaginal atrophy Confirmed Active ADHD (attention deficit hyperactivity disorder) Confirmed Active Chronic back pain Confirmed 2007 Active Lumbar degenerative disc disease Confirmed Active Depression Confirmed 2002 Active Dyslipidemia Confirmed 2002 Active Fibromyalgia Confirmed 1999 Active Mastalgia Confirmed Active Multiple pulmonary nodules, 0.2 cm Confirmed 2018 Active Alcohol Abuse, in Remission Confirmed Active OA - Osteoarthritis of knee Confirmed Active OBESITY Confirmed 1998 Active Osteopenia Confirmed 2008 Active Overactive bladder Confirmed Active Pituitary microadenoma, 4mm Confirmed 2020 Active Raynaud's syndrome Confirmed Active Restless legs syndrome Confirmed 2003 Active Solitary pulmonary nodule Confirmed Active Vital Signs Most recent to oldest [Reference Range]: 1 Height 158 cm (10/09/23 1:49 PM) Social History Social History Type Response Smoking Status Former smoker; Other : quit 1988; entered on: 02/14/15 Sex Patient Care team information Care Team Personnel Name: Kaykay Craft [place] Position: [facility] RN Member Role: Primary Care Nurse Name: Alba Moore MD Position: [facility] Physician - Primary Care Member Role: PCP Address: Address: [address] [place] [id number]- [place] Name: Vitor MILLER, Traci Position: [facility] Pinking Machine Operator Member Role: Primary Care Nurse Care Team Related Persons Name: ROGERS VELASQUEZ Address: home [address] [place] [address] Name: OMI VELASQUEZ Address: home [address] [place] [address] Name: ANGELA VELASQUEZ Address: home [address] [place] [address]
--- OUTSIDE RECORDS SUMMARY | 2024-07-01 17:06 | XMS_ITS | Continuity of Care Document ---
Author Organization [facility] Adult Address [address] [place] [address]- Care Team Providers Care Operations And Maintenance Supervisor Name Role Phone Oscar MCMANUS, Alba Primary Care Physician Encounter [facility] [place] Date(s): 05/16/24 - 06/15/24 [facility] Adult [address] [place] [phone]- Allergies, Adverse Reactions, Alerts Substance Reaction Severity Status iodinated radiocontrast dyes Active Latex Active iodine Active Kiwi Active sulfa drugs Active Cipro hives Active Macrobid Hives Active Bactrim Active Seafood Active Other Environmental Allergy Active Bananas Active Avocado Active Immunizations Given and Recorded Vaccine Date Status Refusal Reason tetanus/diphtheria/pertussis, acel(Tdap) 1 05/30/24 Given influenza virus vaccine, inactivated 09/17/23 Grady rded influenza virus vaccine, inactivated 08/10/22 Grady rded influenza virus vaccine, inactivated 11/25/21 Grady rded influenza virus vaccine, inactivated 08/05/20 Grady rded influenza virus vaccine, inactivated 2 09/22/19 Re corded influenza virus vaccine, inactivated 07/05/18 Grady rded influenza virus vaccine, inactivated 09/24/17 Grady rded influenza virus vaccine, inactivated 10/18/15 Grady rded influenza virus vaccine, inactivated 07/18/13 Give n influenza virus vaccine, inactivated 3 06/02/12 Gi rianna influenza virus vaccine, inactivated 4 07/11/11 Gi rianna SARS-CoV-2 (COVID-19) mRNA-1273 vaccine 02/01/21 R ecorded SARS-CoV-2 (COVID-19) mRNA-1273 vaccine 01/04/21 R ecorded Influenza Virus Vaccine (oldterm) 9/30/20 Recorde d pneumococcal 23-valent vaccine 5 08/05/19 Given pneumococcal 23-valent vaccine 6 11/07/13 Given pneumococcal 13-valent vaccine 05/19/18 Given Diphth-Tetanus Toxoids Adsorbed(oldterm) 08/22/08 Given 1Result Comment: [facility] [id number] 2Result Comment: [facility] [id number] 3Admin Note[facility] 4Admin Note: sarah 5Result Comment: [id number] 6Admin Note: [facility] Medications Albuterol (Eqv-Ventolin HFA) 90 mcg/inh inhalation aerosol See Instructions, INHALE 2 PUFFS BY MOUTH EVERY 4 HOURS NEEDED FOR WHEEZING OR SHORTNESS OF BREATH, # 18 each, 5 Refills, Maintenance, 02/22/24 17:04:00 EDT, [id number], 30, INHALE 2 PUFFS BYMOUTH EVERY 4 HOURS NEEDED FOR WHEEZING OR SHORT... Start Date: 02/22/24 Status: Ordered ClearLax oral powder for reconstitution 1 scoop, By Mouth, Daily, PRN Constipation, dissolve in water or juice, # 527 Gm, 5 Refills, Maintenance, 05/30/24 12:21:00 EDT, [facility]/pharmacy #[id number], 1 scoop By Mouth Daily,PRN:Constipation,Instr:dissolve in water or juice, 158, cm, 05/30/24 12:11:00 E... Start Date: 05/30/24 Status: Ordered EpiPen 2-Minor 0.3 mg injectable kit See Instructions, Intramuscular Once, # 1 each, 1 Refills, Soft Stop, 07/08/21 14:29:00 EDT, [id number], 158, cm, 06/28/21 11:31:00 EDT, Height, 65.7, kg, 06/16/21 13:22:00 EDT, Dry Weight Start Date: 07/08/21 Status: Ordered Estrace Vaginal Cream 0.1 mg/g See Instructions, 1 gram Vaginally at bedtime twice per week, # 42 Gm, 4 Refills, Maintenance, 05/24/24 11:21:00 EDT, [facility]/pharmacy #[id number], Partial fill upon patient request if the prescription is for a schedule II opioid drug., 158, cm, 05/08/24 10:56... Start Date: 05/24/24 Status: Ordered Home Blood Pressure Monitor See Instructions, # 1 each, Maintenance, Check BP as directed, 11/09/23 9:35:00 EST, Supply Start Date: 11/09/23 Status: Ordered ibuprofen 600 mg oral tablet 1, tablet, By Mouth, 3 times a day, # 90 tablet, Refills 3, Tot. Refills 3, Maintenance, 03/21/24 9:38:00 EDT, Route to Pharmacy Electronically, [facility]/pharmacy #[id number], 158, cm, 02/18/24 10:21:00 EDT, Height, 63.5, kg, 07/09/23 13:09:00 EDT, Dry Weight Start Date: 03/21/24 Status: Ordered Myrbetriq 25 mg oral tablet, extended release 1 tablet = 25 mg, By Mouth, Daily, # 30 tablet, 5 Refills, Maintenance, 03/21/24 9:38:00 EDT, [facility]/pharmacy #[id number], Partial fill upon patient request if the prescription is for a schedule II opioid drug., 158, cm, 02/18/24 10:21:00 EDT, Height, 63.5, kg... Start Date: 03/21/24 Status: Ordered Narcan 4 mg/0.1 mL nasal spray = 4 mg, Nares, Both, Once, may repeat every 2 to 3 minutes until patient responds, # 1 each, 0 Refills, Soft Stop, 11/25/22 9:21:00 EST, [facility] #[id number], Partial fill upon patient requestif the prescription is for a schedule II opioid alva... Start Date: 11/25/22 Status: Ordered omeprazole 20 mg oral enteric coated capsule 1 capsule, By Mouth, Daily, # 90 capsule, 1 Refills, Maintenance, 05/16/24 10:34:00 EDT, [facility] [id number], 158, cm, 05/08/24 10:56:00 EDT, Height, 63.5, kg, 07/09/23 13:09:00 EDT, Dry Weight Start Date: 05/16/24 Status: Ordered oxyCODONE 10 mg oral tablet See Instructions, 0.5-1 tablet By Mouth Every 4 hours, max 4 tabs in 24 hours, # 112 tablet, 0 Refills, Maintenance, 06/14/24 19:24:00 EDT, [facility]/pharmacy #[id number], 158, cm, 06/03/24 7:47:00 EDT, Height, 63.5, kg, 07/09/23 13:09:00 EDT, Dry Weight, 4, tablet Start Date: 06/14/24 Status: Ordered OxyCONTIN 10 mg oral tablet, extended release 10 mg, 1, tablet, By Mouth, Every 12 hours, CALENDAR, # 56 tablet, Refills 0, Tot. Refills 0, Maintenance, 06/14/24 19:24:00 EDT, Route to Pharmacy Electronically, [facility]/pharmacy #[id number], Partial fill upon patient request; CALENDAR, 158, cm, 06/03/24 7:47... Start Date: 06/14/24 Status: Ordered simvastatin 20 mg oral tablet 20 mg, 1, tablet, By Mouth, Daily at bedtime, # 90 tablet, Refills 1, Tot. Refills 1, Maintenance, 02/22/24 13:47:00 EDT, Route to Pharmacy Electronically, [facility]/pharmacy #[id number], Partial fill upon patient request if the prescription is for a schedule II... Start Date: 02/22/24 Status: Ordered traZODone 100 mg oral tablet 1, tablet, By Mouth, Daily at bedtime, PRN, # 90 tablet, Refills 1, Maintenance, NEEDED FOR SLEEP, 05/09/24 15:49:00 EDT, Route to Pharmacy Electronically, [facility]ORE [id number], 158, cm, 05/08/24 10:56:00 EDT, Height, 63.5, kg, 07/09/23 13:09:00 EDT, Start Date: 05/09/24 Status: Ordered Problem List Condition Confirmation Course Effective Dates Status H ealth Status Informant Anxiety Confirmed Active Asthma, mild, intermittent Confirmed 1999 Active Vaginal atrophy Confirmed Active ADHD (attention deficit hyperactivity disorder) Confirmed Active Chronic back pain Confirmed 2007 Active Lumbar degenerative disc disease Confirmed Active Dyslipidemia Confirmed 2002 Active Fibromyalgia Confirmed 1999 Active Depression Confirmed 2002 Active Multiple pulmonary nodules, 0.2 cm Confirmed 2018 Active Alcohol Abuse, in Remission Confirmed Active OA - Osteoarthritis of knee Confirmed Active OBESITY Confirmed 1998 Active Osteopenia Confirmed 2008 Active Overactive bladder Confirmed Active Pituitary microadenoma, 4mm Confirmed 2020 Active correction prescription opiate use Confirmed Active Raynaud's syndrome Confirmed Active Restless legs syndrome Confirmed 2003 Active Solitary pulmonary nodule Confirmed Active Social History Social History Type Response Smoking Status Former smoker; Other : quit 1988; entered on: 02/14/15 Sex Patient Care team information Care Team Personnel Name: Kaykay Craft [place] Position: [facility] Office Staff Member Role: Primary Care Nurse Name: Liudmila Andujar Position: [facility] Table Top Tile Setter Member Role: Mica Washer Gluer Name: Oscar MCMANUS, Alba Position: [facility] Physician - Primary Care Member Role: PCP Address: Address: [address] [place] [id number]- Name: Traci Adler RN Position: [facility] RN Member Role: Primary Care Nurse Care Team Related Persons Name: ROGERS VELASQUEZ Address: home [address] [place] [address] Name: OMI VELASQUEZ Address: home [address] [place] [address] Name: ANGELA VELASQUEZ Address: home [address] [place] [address]
--- OUTSIDE RECORDS SUMMARY | 2024-07-01 17:06 | XMS_ITS | Continuity of Care Document ---
Author Organization [facility] ter Address [address] [place] [phone]- Care Team Providers Care Fiscal Assistant Name Role Phone Oscar MCMANUS, Alba Primary Care Physician Encounter [facility] [place] Date(s): 11/10/23 - 12/12/[address] [id number] Attending Physician: Alba Moore MD Admitting Physician: Alba Moore MD Referring Physician: Alba Moore MD Allergies, Adverse Reactions, Alerts Substance Reaction Severity Status sulfa drugs Active iodinated radiocontrast dyes Active Cipro hives Active Bactrim Active Latex Active Seafood Active Other Environmental Allergy Active iodine Active Bananas Active Avocado Active Kiwi Active Immunizations Given and Recorded Vaccine Date Status Refusal Reason influenza virus vaccine, inactivated 09/17/23 Grady rded [...] Diphth-Tetanus Toxoids Adsorbed(oldterm) 08/22/08 Given 1Result Comment: [facility] [id number] 2[facility] 3Admin Note: [facility] 4Result Comment: [id number] 5Admin Note: [facility] Medications ClearLax oral powder for reconstitution 1 scoop, By Mouth, Daily, PRN Constipation, dissolve in water or juice, # 527 Gm, 5 Refills, Maintenance, 11/25/19 12:24:00 EST, [facility] #[id number], 1 scoop By Mouth Daily,PRN:Constipation,Instr:dissolve in water or juice, 158, cm, 09/30/19 1... Start Date: 11/25/19 Status: Ordered EpiPen 2-Minor 0.3 mg injectable kit See Instructions, Intramuscular Once, # 1 each, 1 Refills, Soft Stop, 07/08/21 14:29:00 EDT, [facility] #[id number], 158, cm, 06/28/21 11:31:00 EDT, Height, 65.7, kg, 06/16/21 13:22:00 EDT, Dry Weight Start Date: 07/08/21 Status: Ordered Estrace Vaginal Cream 0.1 mg/g 1 gram, Vaginally, Daily at bedtime, Apply daily at bedtime for 2 weeks and then 2 times per week, # 42 Gm, 3 Refills, Maintenance, 07/15/23 15:07:00 EDT, [facility] #[id number], 158, cm, 07/15/23 14:57:00 EDT, Height, 63.5, kg, 07/09/23 13:09:00... Start Date: 07/15/23 Status: Ordered Home Blood Pressure Monitor See Instructions, # 1 each, Maintenance, Check BP as directed, 11/09/23 9:35:00 EST, Supply Start Date: 11/09/23 Status: Ordered ibuprofen 600 mg oral tablet 1, tablet, By Mouth, 3 times a day, # 90 tablet, Refills 3, Tot. Refills 3, Maintenance, 05/04/23 14:23:00 EDT, Route to Pharmacy Electronically, [facility] #[id number], 158, cm, 04/01/23 7:42:00 EDT, Height, 64, kg, 07/10/21 9:37:00 EDT, Dry Weight Start Date: 05/04/23 Status: Ordered Myrbetriq 25 mg oral tablet, extended release 1 tablet = 25 mg, By Mouth, Daily, # 30 tablet, 5 Refills, Maintenance, 07/15/23 15:07:00 EDT, [facility] #[id number], Partial fill upon patient request if the prescription is for a schedule II opioid drug., 158, cm, 07/15/23 14:57:00 EDT, Height... Start Date: 07/15/23 Status: Ordered Narcan 4 mg/0.1 mL nasal spray = 4 mg, Nares, Both, Once, may repeat every 2 to 3 minutes until patient responds, # 1 each, 0 Refills, Soft Stop, 11/25/22 9:21:00 EST, [facility] #[id number], Partial fill upon patient requestif the prescription [...] hours, # 112 tablet, 0 Refills, Maintenance, 11/26/23 12:06:00 EST, [facility] #[id number], CALENDAR, 158, cm, 11/09/23 9:33:00 EST, Height, 63.5, kg, 07/09/23 13:0... Start Date: 11/26/23 Status: Ordered OxyCONTIN 10 mg oral tablet, extended release 10 mg, 1, tablet, By Mouth, Every 12 hours, CALENDAR, # 18 tablet, Refills 0, Tot. Refills 0, Maintenance, 12/07/23 12:50:00 EST, Route to Pharmacy Electronically, [facility]/pharmacy #[id number], Partial fill upon patient request; CALENDAR, 158, cm, 12/07/23 12:0... Start Date: 12/07/23 Stop Date: 12/16/23 Status: Ordered simvastatin 20 mg oral tablet 20 mg, 1, tablet, By Mouth, Daily at bedtime, # 90 tablet, Refills 1, Tot. Refills 1, Maintenance, 12/07/23 13:01:00 EST, Route to Pharmacy Electronically, [facility]/pharmacy #[id number], Partial fill upon patient request if the prescription is for a schedule II... Start Date: 12/07/23 Status: Ordered traZODone 100 mg oral tablet 100 mg, 1, tablet, By Mouth, Daily at bedtime, PRN, # 30 tablet, Refills 1, Tot. Refills 1, Maintenance, Sleep, 11/09/23 9:29:00 EST, Route to Pharmacy Electronically, [facility] #[id number], Partial fill upon patient request if the prescription... Start Date: 11/09/23 Status: Ordered Ventolin HFA 108 mcg/inh inhalation aerosol with adapter 2 puffs, Inhalation, Every 4 hours, PRN Wheezing/Shortness of Breath, # 1 each, 5 Refills, Maintenance, 05/20/23 12:01:00 EDT, [facility] #[id number], Asthma J45.909;, 158, cm, 04/01/23 7:42:00 EDT, Height, 64, kg, 07/10/21 9:37:00 EDT, Dry Weight Start Date: 05/20/23 Status: Ordered Problem List Condition Confirmation Course [...] Team Personnel Name: Kaykay Craft [place] Position: [facility] RN Member Role: Primary Care Nurse Name: Oscar MCMANUS, Alba Position: [facility] Physician - Primary Care Member Role: PCP Address: Address: [address] [place] [address] [address] [place], [place] [address] Name: Vitor MILLER, Traci Position: [facility] Hospital Outside Energy Sales Representatives Member Role: Primary Care Nurse Care Team Related Persons Name: ROGERS VELASQUEZ Address: [address] [place] [address] Name: OMI VELASQUEZ Address: home [address] [place] [address] Name: ANGELA VELASQUEZ Address: home [address] [place] [address]
--- OUTSIDE RECORDS SUMMARY | 2024-07-01 17:06 | XMS_ITS | Continuity of Care Document ---
Author Organization [facility] Adult Address [address] [place] [address]- Care Team Providers Care Attic Fans Mechanic Name Role Phone Oscar MCMANUS, Alba Primary Care Physician Encounter [facility] Date(s): 03/17/24 - 04/16/24 [facility] Adult [address] [place] [id number]- Allergies, Adverse Reactions, Alerts Substance Reaction Severity Status sulfa drugs Active Latex Active Seafood Active Kiwi Active Avocado Active iodinated radiocontrast dyes Active Cipro hives Active Macrobid Hives Active Bactrim Active Other Environmental Allergy Active iodine Active Bananas Active Immunizations Given and Recorded Vaccine Date [...] Diphth-Tetanus Toxoids Adsorbed(oldterm) 08/22/08 Given 1Result Comment: [facility] [id number] 2[facility]: [facility] 3Admin Note: sarah 4Result Comment: [id number] 5Admin Note: [facility] Medications Albuterol (Eqv-Ventolin HFA) 90 mcg/inh inhalation aerosol See Instructions, INHALE 2 PUFFS BY MOUTH EVERY 4 HOURS NEEDED FOR WHEEZING OR SHORTNESS OF BREATH, # 18 each, 5 Refills, Maintenance, 02/22/24 17:04:00 EDT, [facility] STORE 37568, 30, INHALE 2 PUFFS BYMOUTH EVERY 4 HOURS NEEDED FOR WHEEZING OR SHORT... Start Date: 02/22/24 Status: Ordered ClearLax oral powder for reconstitution 1 scoop, By Mouth, Daily, PRN Constipation, dissolve in water or juice, # 527 Gm, 5 Refills, Maintenance, 11/25/19 12:24:00 EST, [facility] #[id number], 1 scoop By Mouth Daily,PRN:Constipation,Instr:dissolve in water or juice, 158, cm, 09/30/19 1... Start Date: 11/25/19 Status: Ordered EpiPen 2-Minor 0.3 mg injectable kit See Instructions, Intramuscular Once, # 1 each, 1 Refills, Soft Stop, 07/08/21 14:29:00 EDT, [facility] #[id number], 158, cm, 06/28/21 11:31:00 EDT, Height, 65.7, kg, 06/16/21 13:22:00 EDT, Dry Weight Start Date: 07/08/21 Status: Ordered Estrace Vaginal Cream 0.1 mg/g 1 gram, Vaginally, Daily at bedtime, Apply daily at bedtime for 2 weeks and then 2 times per week, # 42 Gm, 3 Refills, Maintenance, 03/21/24 9:38:00 EDT, [facility]/pharmacy #[id number], 158, cm, 02/18/24 10:21:00 EDT, Height, 63.5, kg, 07/09/23 13:09:00 EDT, Dry... Start Date: 03/21/24 Status: Ordered Home Blood Pressure Monitor See Instructions, # 1 each, Maintenance, Check BP as directed, 11/09/23 9:35:00 EST, Supply Start Date: 11/09/23 Status: Ordered ibuprofen 600 mg oral tablet 1, tablet, By Mouth, 3 times a day, # 90 tablet, Refills 3, Tot. Refills 3, Maintenance, 03/21/24 9:38:00 EDT, Route to Pharmacy Electronically, [facility]/pharmacy #[id number], 158, cm, 02/18/24 10:21:00 EDT, Height, 63.5, kg, 07/09/23 13:09:00 EDT, Dry Weight Start Date: 03/21/24 Status: Ordered morphine 15 mg oral tablet, immediate release 1 tablet = 15 mg, By Mouth, Every 6 hours, PRN as needed for pain, for 28 days, HEEL FORMER reviewed, # 112tablet, 0 Refills, Acute 04/18/24 10:21:00 EDT, 03/21/24 10:21:00 EDT, Tablet, [facility]/pharmacy #[id number], Partial fill upon patient request if the prescriptio... Start Date: 03/21/24 Stop Date: 04/18/24 Status: Ordered morphine 15 mg/8 to 12 hr oral tablet, extended release 1 tablet = 15 mg, By Mouth, Every 12 hours, HEEL FORMER reviewed, # 56 tablet, 0 Refills, Maintenance, 03/21/24 10:21:00 EDT, ER Tablet, [facility]/pharmacy #[id number], Partial fill upon patient request if the prescription is for a schedule II opioid drug. Opioid Switch,... Start Date: 03/21/24 Stop Date: 04/18/24 Status: Ordered Myrbetriq 25 mg oral tablet, extended release 1 tablet = 25 mg, By Mouth, Daily, # 30 tablet, 5 Refills, Maintenance, 03/21/24 9:38:00 EDT, [facility]/pharmacy #[id number], Partial fill upon patient request if the prescription is for a schedule II opioid drug., 158, cm, 02/18/24 10:21:00 EDT, Height, 63.5, kg... Start Date: 03/21/24 Status: Ordered Narcan 4 mg/0.1 mL nasal spray = 4 mg, Nares, Both, Once, may repeat every 2 to 3 minutes until patient responds, # 1 each, 0 Refills, Soft Stop, 11/25/22 9:21:00 EST, [facility] #[id number], Partial fill upon patient requestif the prescription is for a schedule II opioid alva... Start Date: 11/25/22 Status: Ordered omeprazole 20 mg oral enteric coated capsule 1 capsule = 20 mg, By Mouth, Daily, # 90 capsule, 0 Refills, Maintenance, 03/21/24 9:36:00 EDT, EC Capsule, [facility]/pharmacy #[id number], 158, cm, 02/18/24 10:21:00 EDT, Height, 63.5, kg, 07/09/23 13:09:00 EDT, Dry Weight Start Date: 03/21/24 Stop Date: 06/19/24 Status: Ordered simvastatin 20 mg oral tablet 20 mg, 1, tablet, By Mouth, Daily at bedtime, # 90 tablet, Refills 1, Tot. Refills 1, Maintenance, 02/22/24 13:47:00 EDT, Route to Pharmacy Electronically, [facility]/pharmacy #[id number], Partial fill upon patient request if the prescription is for a schedule II... Start Date: 02/22/24 Status: Ordered traZODone 100 mg oral tablet 100 mg, 1, tablet, By Mouth, Daily at bedtime, PRN, # 90 tablet, Refills 0, Tot. Refills 0, Maintenance, Sleep, 02/11/24 11:11:00 EDT, Route to Pharmacy Electronically, [facility]/pharmacy #[id number], Partial fill upon patient request if the prescription is for a... 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 prescription opiate use Confirmed Active Raynaud's syndrome Confirmed Active Restless legs syndrome Confirmed 2003 Active Solitary pulmonary nodule Confirmed Active Social History Social History Type Response Smoking Status Former smoker; Other : quit 1988; entered on: 02/14/15 Sex Patient Care team information Care Team Personnel Name: Kaykay Craft [place] Position: [facility] Office Staff Member Role: Primary Care Nurse Name: Oscar MCMANUS, Alba Position: [facility] Physician - Primary Care Member Role: PCP Address: Address: [address] [place] [address]- Name: Vitor MILLER, Traci Position: [facility] Hospital Wood Scrap Handler Member Role: Primary Care Nurse Care Team Related Persons Name: ROGERS VELASQUEZ Address: home [address] [place] [address] Name: OMI VELASQUEZ Address: home [address] [place] [address] Name: ANGELA VELASQUEZ Address: home [address] [place] [address]
--- OUTSIDE RECORDS SUMMARY | 2024-07-01 17:07 | XMS_ITS | Continuity of Care Document ---
Author Organization [facility] Adult Address [address] [place] [address]- Care Team Providers Care Regional Vice President Surgical Sales Name Role Phone Oscar MCMANUS, Alba Primary Care Physician Encounter [facility] Date(s): 05/13/24 - 06/12/24 [facility] Adult [address] [place] [address]- Allergies, Adverse Reactions, Alerts Substance Reaction Severity Status sulfa drugs Active iodinated radiocontrast dyes Active Cipro hives Active Macrobid Hives Active Bactrim Active Latex Active Seafood Active [...] (oldterm) 07/11/20 Recorde d pneumococcal 23-valent vaccine 5 08/05/19 Given pneumococcal 23-valent vaccine 6 11/07/13 Given pneumococcal 13-valent vaccine 05/19/18 Given Diphth-Tetanus Toxoids Adsorbed(oldterm) 08/22/08 Given 1Result Comment: [facility] [id number] 2Result Comment: [facility] [id number] 3Admin Note: [facility] 4Admin Note: sarah 5Result Comment: [id number] 6Admin Note: [facility] Medications Albuterol (Eqv-Ventolin HFA) 90 mcg/inh inhalation aerosol See Instructions, INHALE 2 PUFFS BY MOUTH EVERY 4 HOURS NEEDED FOR WHEEZING OR SHORTNESS OF BREATH, # 18 each, 5 Refills, Maintenance, 02/22/24 17:04:00 EDT, [facility] ST[facility] [address], 30, INHALE 2 PUFFS BYMOUTH EVERY 4 HOURS NEEDED FOR WHEEZING OR SHORT... Start Date: 02/22/24 Status: Ordered ClearLax oral powder for reconstitution 1 scoop, By Mouth, Daily, PRN Constipation, dissolve in water or juice, # 527 Gm, 5 Refills, Maintenance, 05/30/24 12:21:00 EDT, [facility]/pharmacy #[id number], 1 scoop By Mouth Daily,PRN:Constipation,Instr:dissolve in water or juice, 158, cm, 05/30/24 12:11:00 E... Start Date: 05/30/24 Status: Ordered EpiPen 2-Minor 0.3 mg injectable kit See Instructions, Intramuscular Once, # 1 each, 1 Refills, Soft Stop, 07/08/21 14:29:00 EDT, [facility] #[id number], 158, cm, 06/28/21 11:31:00 EDT, Height, 65.7, kg, 06/16/21 13:22:00 EDT, Dry Weight Start Date: 07/08/21 Status: Ordered Estrace Vaginal Cream 0.1 mg/g See Instructions, 1 gram Vaginally at bedtime twice per week, # 42 Gm, 4 Refills, Maintenance, 05/24/24 11:21:00 EDT, [facility]/pharmacy #[id number], Partial fill upon patient request if [...] 03/21/24 9:38:00 EDT, Route to Pharmacy Electronically, [facility]/pharmacy #[id number], 158, cm, 02/18/24 10:21:00 EDT, Height, 63.5, kg, 07/09/23 13:09:00 EDT, Dry Weight Start Date: 03/21/24 Status: Ordered Myrbetriq 25 mg oral tablet, extended release 1 tablet = 25 mg, By Mouth, Daily, # 30 tablet, 5 Refills, Maintenance, 03/21/24 9:38:00 EDT, [facility]/pharmacy #[id number], Partial fill upon patient request if the prescription is for a schedule II opioid drug., 158, cm, 02/18/24 10:21:00 EDT, Height, 63.5, kg... Start Date: 03/21/24 Status: Ordered Narcan 4 mg/0.1 mL nasal spray = 4 mg, Nares, Both, Once, may repeat every 2 to 3 minutes until patient responds, # 1 each, 0 Refills, Soft Stop, 11/25/22 9:21:00 EST, [id number], Partial fill upon patient requestif the prescription is for a schedule II opioid alva... Start Date: 11/25/22 Status: Ordered omeprazole 20 mg oral enteric coated capsule 1 capsule, By Mouth, Daily, # 90 capsule, 1 Refills, Maintenance, 05/16/24 10:34:00 EDT, [facility] STORE 68041, 158, cm, 05/08/24 10:56:00 EDT, Height, 63.5, kg, 07/09/23 13:09:00 EDT, Dry Weight Start Date: 05/16/24 Status: Ordered oxyCODONE 10 mg oral tablet See Instructions, 0.5-1 tablet By Mouth Every 4 hours, max 4 tabs in 24 hours, # 112 tablet, 0 Refills, Maintenance, 05/17/24 10:12:00 EDT, [facility]/pharmacy #[id number], 158, cm, 05/08/24 10:56:00 EDT, Height,63.5, kg, 07/09/23 13:09:00 EDT, Dry Weight, 4, tablet Start Date: 05/17/24 Status: Ordered OxyCONTIN 10 mg oral tablet, extended release 10 mg, 1, tablet, By Mouth, Every 12 hours, CALENDAR, # 56 tablet, Refills 0, Tot. Refills 0, Maintenance, 05/17/24 10:12:00 EDT, Route to Pharmacy Electronically, [facility]/pharmacy #[id number], Partial fill upon patient request; CALENDAR, 158, cm, 05/08/24 10:5... Start Date: 05/17/24 Status: Ordered simvastatin 20 mg oral tablet 20 mg, 1, tablet, By Mouth, Daily at bedtime, # 90 tablet, Refills 1, Tot. Refills 1, Maintenance, 02/22/24 13:47:00 EDT, Route to Pharmacy Electronically, [facility]/pharmacy #[id number], Partial fill upon patient request if the prescription is for a schedule II... 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 opiate use Confirmed Active Raynaud's syndrome Confirmed Active Restless legs syndrome Confirmed 2003 Active Solitary pulmonary nodule Confirmed Active Social History Social History Type Response Smoking Status Former smoker; Other : quit 1988; entered on: 02/14/15 Sex Patient Care team information Care Team Personnel Name: Kaykay Craft [place] Position: [facility] Office Staff Member Role: Primary Care Nurse Name: Liudmila Andujar Position: [facility] Csr Retail Member Role: Soft Work Wrapper Examiner Name: Alba Moore MD Position: [facility] Physician - Primary Care Member Role: PCP Address: Address: [address] [place] [address] [address] [place] [address]- Name: Traci Adler RN Position: [facility] RN Member Role: Primary Care Nurse Care Team Related Persons Name: ROGERS VELASQUEZ Address: home [address] [place] [address] Name: OMI VELASQUEZ Address: [address] [place] [address] Name: ANGELA VELASQUEZ Address: home [address] [place] [address]
--- OUTSIDE RECORDS SUMMARY | 2024-07-01 17:07 | XMS_ITS | Continuity of Care Document ---
Author Organization [facility] Adult Address [address] [place] [address]- Care Team Providers Care Store Merchandiser Name Role Phone Oscar MCMANUS, Alba Primary Care Physician [place] [facility] [place] [place] 12/07/23 - 01/06/24 [facility] Adult [address] [place] [address]- Attending Physician: Admtr, Ar8 Allergies, Adverse Reactions, Alerts Substance Reaction Severity [...] 07/11/20 Recorde d pneumococcal 23-valent vaccine 4 10/25/19 Given pneumococcal 23-valent vaccine 5 11/07/13 Given pneumococcal 13-valent vaccine 05/19/18 Given Diphth-Tetanus Toxoids Adsorbed(oldterm) 08/22/08 Given 1Result Comment: [facility] [id number] 2Admin Note: [facility] 3Admin Note: sarah 4Result Comment: [id number] 5Admin Note: [facility] Medications ClearLax oral powder for reconstitution 1 scoop, By Mouth, Daily, PRN Constipation, dissolve in water or juice, # 527 Gm, 5 Refills, Maintenance, 11/25/19 12:24:00 EST, [facility] #[id number], 1 scoop By Mouth Daily,PRN:Constipation,Instr:dissolve in water or juice, 158, cm, 09/30/19 1... Start Date: 11/25/19 Status: Ordered EpiPen 2-Minor 0.3 mg injectable kit See Instructions, Intramuscular Once, # 1 each, 1 Refills, Soft Stop, 07/08/21 14:29:00 EDT, [facility] #[id number], 158, cm, 06/28/21 11:31:00 EDT, Height, 65.7, kg, 06/16/21 13:22:00 EDT, Dry Weight Start Date: 07/08/21 Status: Ordered Estrace Vaginal Cream 0.1 mg/g 1 gram, Vaginally, Daily at bedtime, Apply daily at bedtime for 2 weeks and then 2 times per week, # 42 Gm, 3 Refills, Maintenance, 07/15/23 15:07:00 EDT, [facility] #[id number], 158, cm, 07/15/23 14:57:00 EDT, Height, 63.5, [...] 05/04/23 14:23:00 EDT, Route to Pharmacy Electronically, [facility] #[id number], 158, cm, 04/01/23 7:42:00 EDT, Height, 64, kg, 07/10/21 9:37:00 EDT, Dry Weight Start Date: 05/04/23 Status: Ordered Myrbetriq 25 mg oral tablet, extended release 1 tablet = 25 mg, By Mouth, Daily, # 30 tablet, 5 Refills, Maintenance, 07/15/23 15:07:00 EDT, [facility] #[id number], Partial fill upon patient request if the prescription is for a schedule II opioid drug., 158, cm, 07/15/23 14:57:00 EDT, Height... Start Date: 07/15/23 Status: Ordered Narcan 4 mg/0.1 mL nasal spray = 4 mg, Nares, Both, Once, may repeat every 2 to 3 minutes until patient responds, # 1 each, 0 Refills, Soft Stop, 11/25/22 9:21:00 EST, [facility] #[id number], Partial fill upon patient requestif the prescription [...] hours, # 112 tablet, 0 Refills, Maintenance, 12/17/23 15:39:00 EST, [facility], CALENDAR, 158, cm, 12/07/23 12:03:00 EST, Height, 63.5, kg, 07/09/23 13:09:... Start Date: 12/17/23 Stop Date: 12/19/23 Status: Ordered oxyCODONE 10 mg oral tablet See Instructions, CALENDAR. 0.5-1 tablet By Mouth Every 4 hours, max 4 tabs in 24 hours, # 112 tablet, 0 Refills, Maintenance, 12/16/23 12:47:00 EST, [facility]/pharmacy #2566, CALENDAR, 158, cm, 12/07/23 12:03:00 EST, Height, 63.5, kg, 07/09/23 13:09:00 EDT... Start Date: 12/16/23 Status: Ordered OxyCONTIN 10 mg oral tablet, extended release 10 mg, 1, tablet, By Mouth, Every 12 hours, CALENDAR, # 56 tablet, Refills 0, Tot. Refills 0, Maintenance, 12/17/23 15:39:00 EST, Route to Pharmacy Electronically, [facility], Partial fill upon patient request; CALENDAR, 158, cm, ... Start Date: 12/17/23 Stop Date: 12/19/23 Status: Ordered OxyCONTIN 10 mg oral tablet, extended release 10 mg, 1, tablet, By Mouth, Every 12 hours, CALENDAR, # 56 tablet, Refills 0, Tot. Refills 0, Maintenance, 12/16/23 12:47:00 EST, Route to Pharmacy Electronically, [facility]/pharmacy #[id number], Partial fill upon patient request; CALENDAR, 158, cm, 12/07/23 12:0... Start Date: 12/16/23 Status: Ordered simvastatin 20 mg oral tablet 20 mg, 1, tablet, By Mouth, Daily at bedtime, # 90 tablet, Refills 1, Tot. Refills 1, Maintenance, 12/07/23 13:01:00 EST, Route to Pharmacy Electronically, [facility]/pharmacy #[id number], Partial fill upon patient request if the prescription is for a schedule II... Start Date: 12/07/23 Status: Ordered traZODone 100 mg oral tablet 100 mg, 1, tablet, By Mouth, Daily at bedtime, PRN, # 30 tablet, Refills 1, Tot. Refills 1, Maintenance, Sleep, 11/09/23 9:29:00 EST, Route to Pharmacy Electronically, [facility] #[id number], Partial fill upon patient request if the prescription... Start Date: 11/09/23 Status: Ordered Ventolin HFA 108 mcg/inh inhalation aerosol with adapter 2 puffs, Inhalation, Every 4 hours, PRN Wheezing/Shortness of Breath, # 1 each, 5 Refills, Maintenance, 05/20/23 12:01:00 EDT, [facility] #[id number], Asthma J45.909;, 158, cm, 04/01/23 7:42:00 EDT, [...] : quit 1988; entered on: 02/14/15 Sex EKG study * Event Display: EKG Authored Date: Cardiology * Floridalma Rushing: PERFORM Event Display: Cardiovascular Results Scanned Authored Date: Radiology * Event Display: Ultrasound Abdomen, Non- Authored Date: * Event Display: MRI Head, Non- Authored Date: * Event Display: MRI Head, Non- Authored Date: * Event Display: X-Ray Abdomen, Non- Authored Date: Patient Care team information Care Team Personnel Name: Kaykay Craft [place] Position: [facility] RN Member Role: Primary Care Nurse Name: Alba Moore MD Position: [facility] Physician - Primary Care Member Role: PCP Address: Address: [employer] [address] [place] [address]- Name: Traci Adler RN Position: [facility] Hospital Application Specialist Member Role: Primary Care Nurse Care Team Related Persons Name: ROGERS VELASQUEZ Address: [address] [place] [address] Name: OMI VELASQUEZ Address: home [address] [place] [address] Name: ANGELA VELASQUEZ Address: home [address] [place] [address]
--- OUTSIDE RECORDS SUMMARY | 2024-07-01 17:07 | XMS_ITS | Continuity of Care Document ---
Author Organization [facility] Adult Address [address] [place] [address]- Care Team Providers Care Medical Staff Manager Name Role Phone Oscar MCMANUS, Alba Primary Care Physician Encounter [facility] Date(s): 02/16/24 - 03/17/24 [facility] Adult [address] [place] [id number]- Allergies, Adverse Reactions, Alerts Substance Reaction Severity Status Cipro hives Active Macrobid Hives Active Latex Active Kiwi Active Avocado Active sulfa drugs Active iodinated radiocontrast dyes Active Bactrim Active Seafood Active Other Environmental [...] Diphth-Tetanus Toxoids Adsorbed(oldterm) 08/22/08 Given 1Result Comment: [facility] [id number] 2Admin Note: [facility] 3Admin Note: sarah 4Result Comment: [id number] 5Admin Note: [facility] Medications Albuterol (Eqv-Ventolin HFA) 90 mcg/inh inhalation aerosol See Instructions, INHALE 2 PUFFS BY MOUTH EVERY 4 HOURS NEEDED FOR WHEEZING OR SHORTNESS OF BREATH, # 18 each, 5 Refills, Maintenance, 02/22/24 17:04:00 EDT, [facility] 41122, 30, INHALE 2 PUFFS BYMOUTH EVERY 4 HOURS NEEDED FOR WHEEZING OR SHORT... Start Date: 02/22/24 Status: Ordered ClearLax oral powder for reconstitution 1 scoop, By Mouth, Daily, PRN Constipation, dissolve in water or juice, # 527 Gm, 5 Refills, Maintenance, 11/25/19 12:24:00 EST, [facility] #[id number], 1 scoop By Mouth Daily,PRN:Constipation,Instr:dissolve in water or juice, 158, cm, 09/30/19 1... Start Date: 11/25/19 Status: Ordered EpiPen 2-Minor 0.3 mg injectable kit See Instructions, Intramuscular Once, # 1 each, 1 Refills, Soft Stop, 07/08/21 14:29:00 EDT, [facility] #[id number], 158, cm, 06/28/21 11:31:00 EDT, Height, 65.7, kg, 06/16/21 13:22:00 EDT, Dry Weight Start Date: 07/08/21 Status: Ordered Estrace Vaginal Cream 0.1 mg/g 1 gram, Vaginally, Daily at bedtime, Apply daily at bedtime for 2 weeks and then 2 times per week, # 42 Gm, 3 Refills, Maintenance, 07/15/23 15:07:00 EDT, [facility] #[id number], 158, cm, 07/15/23 14:57:00 EDT, Height, 63.5, [...] 05/04/23 14:23:00 EDT, Route to Pharmacy Electronically, [facility] #[id number], 158, cm, 04/01/23 7:42:00 EDT, Height, 64, kg, 07/10/21 9:37:00 EDT, Dry Weight Start Date: 05/04/23 Status: Ordered Myrbetriq 25 mg oral tablet, extended release 1 tablet = 25 mg, By Mouth, Daily, # 30 tablet, 5 Refills, Maintenance, 07/15/23 15:07:00 EDT, [facility] #[id number], Partial fill upon patient request if the prescription is for a schedule II opioid drug., 158, cm, 07/15/23 14:57:00 EDT, Height... Start Date: 07/15/23 Status: Ordered Narcan 4 mg/0.1 mL nasal spray = 4 mg, Nares, Both, Once, may repeat every 2 to 3 minutes until patient responds, # 1 each, 0 Refills, Soft Stop, 11/25/22 9:21:00 EST, [facility] #[id number], Partial fill upon patient requestif the prescription [...] hours, # 112 tablet, 0 Refills, Maintenance, 02/10/24 12:55:00 EDT, [facility]/pharmacy #[id number], CALENDAR, 158, cm, 12/07/23 12:03:00 EST, Height, 63.5, kg, 07/09/23 13:09:00 EDT... Start Date: 02/10/24 Status: Ordered OxyCONTIN 10 mg oral tablet, extended release 10 mg, 1, tablet, By Mouth, Every 12 hours, TO BE FILLED 02/15/24 CALENDAR, # 56 tablet, Refills 0, Tot. Refills 0, Maintenance, 02/10/24 12:55:00 EDT, Route to Pharmacy Electronically, [facility]/pharmacy #[id number], Partial fill upon patient request; CALENDAR,... Start Date: 02/10/24 Status: Ordered simvastatin 20 mg oral tablet 20 mg, 1, tablet, By Mouth, Daily at bedtime, # 90 tablet, Refills 1, Tot. Refills 1, Maintenance, 02/22/24 13:47:00 EDT, Route to Pharmacy Electronically, [facility]/pharmacy #[id number], Partial fill upon patient request if the prescription is for a schedule II... Start Date: 02/22/24 Status: Ordered traZODone 100 mg oral tablet 100 mg, 1, tablet, By Mouth, Daily at bedtime, PRN, # 90 tablet, Refills 0, Tot. Refills 0, Maintenance, Sleep, 02/11/24 11:11:00 EDT, Route to Pharmacy Electronically, [facility]/pharmacy #[id number], Partial fill upon patient [...] Team Personnel Name: Kaykay Craft [place] Position: [facility] Office Staff Member Role: Primary Care Nurse Name: Oscar MCMANUS, Alba Position: [facility] Physician - Primary Care Member Role: PCP Address: Address: [address] [place] [address] [address] [place] [address]- Name: Vitor MILLER, Trcai Position: [facility] Hospital Dressmaker Helper Member Role: Primary Care Nurse Care Team Related Persons Name: ROGERS VELASQUEZ Address: home [address] [place] [address] Name: OMI VELASQUEZ Address: home [address] [place] [address] Name: ANGELA VELASQUEZ Address: home [address] [place] [address]
--- OUTSIDE RECORDS SUMMARY | 2024-07-01 17:07 | XMS_ITS | Continuity of Care Document ---
Author Organization [facility] Adult Address [address] [place] [address]- Care Team Providers Care Meat Press Operator Name Role Phone Oscar MCMANUS, Alba Primary Care Physician Encounter [facility] Date(s): 11/10/23 - 12/10/23 [facility] Adult [address] [place] [address]- Allergies, Adverse Reactions, Alerts Substance Reaction Severity [...] Toxoids Adsorbed(oldterm) 08/22/08 Given 1Result Comment: [facility] [id number] 2Admin Note: [facility] 3Admin Note: sarah 4Result Comment: [id number] 5Admin Note: [facility] Medications ClearLax oral powder for reconstitution 1 scoop, By Mouth, Daily, PRN Constipation, dissolve in water or juice, # 527 Gm, 5 Refills, Maintenance, 11/25/19 12:24:00 EST, [facility] STORE #[id number], 1 scoop By Mouth Daily,PRN:Constipation,Instr:dissolve in water or juice, 158, cm, 09/30/19 1... Start Date: 11/25/19 Status: Ordered EpiPen 2-Minor 0.3 mg injectable kit See Instructions, Intramuscular Once, # 1 each, 1 Refills, Soft Stop, 07/08/21 14:29:00 EDT, [facility] #[id number], 158, cm, 06/28/21 11:31:00 EDT, Height, 65.7, kg, 06/16/21 13:22:00 EDT, Dry Weight Start Date: 07/08/21 Status: Ordered Estrace Vaginal Cream 0.1 mg/g 1 gram, Vaginally, Daily at bedtime, Apply daily at bedtime for 2 weeks and then 2 times per week, # 42 Gm, 3 Refills, Maintenance, 07/15/23 15:07:00 EDT, [facility] #[id number], 158, cm, 07/15/23 14:57:00 EDT, Height, 63.5, [...] 05/04/23 14:23:00 EDT, Route to Pharmacy Electronically, [facility] STORE #[id number], 158, cm, 04/01/23 7:42:00 EDT, Height, 64, kg, 07/10/21 9:37:00 EDT, Dry Weight Start Date: 05/04/23 Status: Ordered Myrbetriq 25 mg oral tablet, extended release 1 tablet = 25 mg, By Mouth, Daily, # 30 tablet, 5 Refills, Maintenance, 07/15/23 15:07:00 EDT, [facility] STORE #[id number], Partial fill upon patient request if the prescription is for a schedule II opioid drug., 158, cm, 07/15/23 14:57:00 EDT, Height... Start Date: 07/15/23 Status: Ordered Narcan 4 mg/0.1 mL nasal spray = 4 mg, Nares, Both, Once, may repeat every 2 to 3 minutes until patient responds, # 1 each, 0 Refills, Soft Stop, 11/25/22 9:21:00 EST, [facility] STORE #[id number], Partial fill upon patient requestif the prescription [...] tablet, 0 Refills, Maintenance, 11/26/23 12:06:00 EST, [facility] STORE #[id number], CALENDAR, 158, cm, 11/09/23 9:33:00 EST, Height, 63.5, kg, 07/09/23 13:0... Start Date: 11/26/23 Status: Ordered OxyCONTIN 10 mg oral tablet, extended release 10 mg, 1, tablet, By Mouth, Every 12 hours, CALENDAR, # 18 tablet, Refills 0, Tot. Refills 0, Maintenance, 12/07/23 12:50:00 EST, Route to Pharmacy Electronically, [facility]/pharmacy #[id number], Partial fill upon patient request; CALENDAR, 158, cm, 12/07/23 12:0... Start Date: 12/07/23 Stop Date: 12/16/23 Status: Ordered simvastatin 20 mg oral tablet 20 mg, 1, tablet, By Mouth, Daily at bedtime, # 90 tablet, Refills 1, Tot. Refills 1, Maintenance, 12/07/23 13:01:00 EST, Route to Pharmacy Electronically, [facility]/pharmacy #[id number], Partial fill upon patient request if the prescription is for a schedule II... Start Date: 12/07/23 Status: Ordered traZODone 100 mg oral tablet 100 mg, 1, tablet, By Mouth, Daily at bedtime, PRN, # 30 tablet, Refills 1, Tot. Refills 1, Maintenance, Sleep, 11/09/23 9:29:00 EST, Route to Pharmacy Electronically, [facility] STORE #[id number], Partial fill upon patient request if the prescription... Start Date: 11/09/23 Status: Ordered Ventolin HFA 108 mcg/inh inhalation aerosol with adapter 2 puffs, Inhalation, Every 4 hours, PRN Wheezing/Shortness of Breath, # 1 each, 5 Refills, Maintenance, 05/20/23 12:01:00 EDT, [facility] STORE #[id number], Asthma J45.909;, 158, cm, 04/01/23 7:42:00 EDT, [...] Team Personnel Name: Kaykay Craft [place] Position: [facility] RN Member Role: Primary Care Nurse Name: Alba Moore MD Position: [facility] Physician - Primary Care Member Role: PCP Address: Address: [address] [place] [address] [address] [place], [place] [address] Name: Vitor MILLER, Traci Position: [facility] Hospital Returned Goods Receiving Clerk Member Role: Primary Care Nurse Care Team Related Persons Name: ROGERS VELASQUEZ Address: home [address] [place] [address] Name: OMI VELASQUEZ Address: home [address] [place] [address] Name: ANGELA VELASQUEZ Address: home [address] [place] [address]
--- OUTSIDE RECORDS SUMMARY | 2024-07-01 17:07 | XMS_ITS | Continuity of Care Document ---
Author Organization [facility] Adult Address [address] [place] [address]- Care Team Providers Care American Board Certified Orthotist Name Role Phone Oscar MCMANUS, Alba Primary Care Physician Encounter [facility] Date(s): 02/22/24 - 03/23/24 [facility] Adult [address] [place] [address]- Encounter Diagnosis Dyslipidemia(Discharge Diagnosis) - 02/22/24 Allergies, Adverse Reactions, Alerts Substance Reaction Severity [...] Diphth-Tetanus Toxoids Adsorbed(oldterm) 08/22/08 Given 1Result Comment: [facility] [id number] 2Admin Note: [facility] 3Admin Note: sarah 4Resreza Comment: [id number] 5Admin Note: [facility] Medications Albuterol (Eqv-Ventolin HFA) 90 mcg/inh inhalation aerosol See Instructions, INHALE 2 PUFFS BY MOUTH EVERY 4 HOURS NEEDED FOR WHEEZING OR SHORTNESS OF BREATH, # 18 each, 5 Refills, Maintenance, 02/22/24 17:04:00 EDT, [facility] [id number], 30, INHALE 2 PUFFS BYMOUTH EVERY 4 HOURS NEEDED FOR WHEEZING OR SHORT... Start Date: 02/22/24 Status: Ordered ClearLax oral powder for reconstitution 1 scoop, By Mouth, Daily, PRN Constipation, dissolve in water or juice, # 527 Gm, 5 Refills, Maintenance, 11/25/19 12:24:00 EST, [facility] #[id number], 1 scoop By Mouth Daily,PRN:Constipation,Instr:dissolve in water or juice, 158, cm, 09/30/19 1... Start Date: 11/25/19 Status: Ordered EpiPen 2-Minor 0.3 mg injectable kit See Instructions, Intramuscular Once, # 1 each, 1 Refills, Soft Stop, 07/08/21 14:29:00 EDT, [facility] #[id number], 158, cm, 06/28/21 11:31:00 EDT, Height, 65.7, kg, 06/16/21 13:22:00 EDT, Dry Weight Start Date: 07/08/21 Status: Ordered Estrace Vaginal Cream 0.1 mg/g 1 gram, Vaginally, Daily at bedtime, Apply daily at bedtime for 2 weeks and then 2 times per week, # 42 Gm, 3 Refills, Maintenance, 03/21/24 9:38:00 EDT, [facility]/pharmacy #[id number], 158, cm, 02/18/24 10:21:00 EDT, [...] 03/21/24 9:38:00 EDT, Route to Pharmacy Electronically, [facility]/pharmacy #[id number], 158, cm, 02/18/24 10:21:00 EDT, Height, 63.5, kg, 07/09/23 13:09:00 EDT, Dry Weight Start Date: 03/21/24 Status: Ordered morphine 15 mg oral tablet, immediate release 1 tablet = 15 mg, By Mouth, Every 6 hours, PRN as needed for pain, for 28 days, SUPPLY PLANNER reviewed, # 112tablet, 0 Refills, Acute 04/18/24 10:21:00 EDT, 03/21/24 10:21:00 EDT, Tablet, [facility]/pharmacy #[id number], Partial fill upon patient request if the prescriptio... Start Date: 03/21/24 Stop Date: 04/18/24 Status: Ordered morphine 15 mg/8 to 12 hr oral tablet, extended release 1 tablet = 15 mg, By Mouth, Every 12 hours, SUPPLY PLANNER reviewed, # 56 tablet, 0 Refills, Maintenance, 03/21/24 10:21:00 EDT, ER Tablet, [facility]/pharmacy #[id number], Partial fill upon patient request if the prescription is for a schedule II opioid drug. Opioid Switch,... Start Date: 03/21/24 Stop Date: 04/18/24 Status: Ordered Myrbetriq 25 mg oral tablet, extended release 1 tablet = 25 mg, By Mouth, Daily, # 30 tablet, 5 Refills, Maintenance, 03/21/24 9:38:00 EDT, [facility]/pharmacy #[id number], Partial fill upon patient request if the prescription is for a schedule II opioid drug., 158, cm, 02/18/24 10:21:00 EDT, Height, 63.5, kg... Start Date: 03/21/24 Status: Ordered Narcan 4 mg/0.1 mL nasal spray = 4 mg, Nares, Both, Once, may repeat every 2 to 3 minutes until patient responds, # 1 each, 0 Refills, Soft Stop, 11/25/22 9:21:00 EST, [facility] #[id number], Partial fill upon patient requestif the prescription is for a schedule II opioid alva... Start Date: 11/25/22 Status: Ordered omeprazole 20 mg oral enteric coated capsule 1 capsule = 20 mg, By Mouth, Daily, # 90 capsule, 0 Refills, Maintenance, 03/21/24 9:36:00 EDT, EC Capsule, [facility] #[id number], 158, cm, 02/18/24 10:21:00 EDT, Height, 63.5, kg, 07/09/23 13:09:00 EDT, Dry Weight Start Date: 03/21/24 Stop Date: 06/19/24 Status: Ordered simvastatin 20 mg oral tablet 20 mg, 1, tablet, By Mouth, Daily at bedtime, # 90 tablet, Refills 1, Tot. Refills 1, Maintenance, 02/22/24 13:47:00 EDT, Route to Pharmacy Electronically, [facility][id number], Partial fill upon patient request if the prescription is for a schedule II... Start Date: 02/22/24 Status: Ordered traZODone 100 mg oral tablet 100 mg, 1, tablet, By Mouth, Daily at bedtime, PRN, # 90 tablet, Refills 0, Tot. 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 prescription opiate use Confirmed Active Raynaud's syndrome Confirmed Active Restless legs syndrome Confirmed 2003 Active Solitary pulmonary nodule Confirmed Active Diagnosis Diagnosis Type Effective Dates Health Status Cl inical Service Informant Dyslipidemia Discharge Diagnosis 02/22/24 Non-Specified Social History Social History Type Response Smoking Status Former smoker; Other : quit 1988; entered on: 02/14/15 Sex Patient Care team information Care Team Personnel Name: Kaykay Craft [place] Position: [facility] Office Staff Member Role: Primary Care Nurse Name: Oscar MCMANUS, Alba Position: [facility] Physician - Primary Care Member Role: PCP Address: Address: [address] [place] [address] [address]rd [place] [address]- Name: Vitor MILLER, Traci Position: [facility] Hospital Neurology Physician Member Role: Primary Care Nurse Care Team Related Persons Name: ROGERS VELASQUEZ Address: home [address] [place] [address] Name: OMI VELASQUEZ Address: home [address] [place] [address] Name: ANGELA VELASQUEZ Address: home [address] [place] [address]
--- OUTSIDE RECORDS SUMMARY | 2024-07-01 17:07 | XMS_ITS | Continuity of Care Document ---
Author Organization [facility] Adult Address [address] [place] [address]- Care Team Providers Care Test Tech Name Role Phone Oscar MCMANUS, Alba Primary Care Physician Encounter [facility] Date(s): 05/06/24 - 06/05/24 [facility] [address] [place] [address]- Allergies, Adverse Reactions, Alerts Substance Reaction Severity Status iodinated radiocontrast dyes Active Bactrim Active Latex Active Kiwi Active sulfa drugs Active Cipro hives Active Macrobid Hives Active Seafood Active Other Environmental Allergy Active iodine Active Bananas Active Avocado Active Immunizations Given [...] Diphth-Tetanus Toxoids Adsorbed(oldterm) 08/22/08 Given 1Result Comment: [facility] [id number] 2Result Comment: [facility] [phone] 3Admin Note: [facility] 4Admin Note: sarah 5Result Comment: [id number] 6Admin Note: [facility] Medications Albuterol (Eqv-Ventolin HFA) 90 mcg/inh inhalation aerosol See Instructions, INHALE 2 PUFFS BY MOUTH EVERY 4 HOURS NEEDED FOR WHEEZING OR SHORTNESS OF BREATH, # 18 each, 5 Refills, Maintenance, 02/22/24 17:04:00 EDT, [id number], 30, INHALE 2 PUFFS BYMOUTH EVERY 4 HOURS NEEDED FOR WHEEZING OR SHORT... Start Date: 02/22/24 Status: Ordered ClearLax oral powder for reconstitution 1 scoop, By Mouth, Daily, PRN Constipation, dissolve in water or juice, # 527 Gm, 5 Refills, Maintenance, 05/30/24 12:21:00 EDT, [facility]/pharmacy #[id number], 1 scoop By Mouth Daily,PRN:Constipation,Instr:dissolve in water or juice, 158, cm, 05/30/24 12:11:00 E... Start Date: 05/30/24 Status: Ordered EpiPen 2-Minor 0.3 mg injectable kit See Instructions, Intramuscular Once, # 1 each, 1 Refills, Soft Stop, 07/08/21 14:29:00 EDT, [facility] #[id number], 158, cm, 06/28/21 11:31:00 EDT, Height, 65.7, kg, 06/16/21 13:22:00 EDT, Dry Weight Start Date: 07/08/21 Status: Ordered Estrace Vaginal Cream 0.1 mg/g See Instructions, 1 gram Vaginally at bedtime twice per week, # 42 Gm, 4 Refills, Maintenance, 05/24/24 11:21:00 EDT, [facility]/pharmacy #[id number], Partial fill upon patient request [...] 03/21/24 9:38:00 EDT, Route to Pharmacy Electronically, [facility]/pharmacy #[id number], 158, cm, 02/18/24 10:21:00 EDT, Height, 63.5, kg, 07/09/23 13:09:00 EDT, Dry Weight Start Date: 03/21/24 Status: Ordered Myrbetriq 25 mg oral tablet, extended release 1 tablet = 25 mg, By Mouth, Daily, # 30 tablet, 5 Refills, Maintenance, 03/21/24 9:38:00 EDT, [facility]/pharmacy #[id number], Partial fill upon patient request if the prescription is for a schedule II opioid drug., 158, cm, 02/18/24 10:21:00 EDT, Height, 63.5, kg... Start Date: 03/21/24 Status: Ordered Narcan 4 mg/0.1 mL nasal spray = 4 mg, Nares, Both, Once, may repeat every 2 to 3 minutes until patient responds, # 1 each, 0 Refills, Soft Stop, 11/25/22 9:21:00 EST, [id number], Partial fill upon patient requestif the prescription is for a schedule II opioid alva... Start Date: 11/25/22 Status: Ordered omeprazole 20 mg oral enteric coated capsule 1 capsule, By Mouth, Daily, # 90 capsule, 1 Refills, Maintenance, 05/16/24 10:34:00 EDT, [facility] ST[facility] [id number], 158, cm, 05/08/24 10:56:00 EDT, Height, 63.5, kg, 07/09/23 13:09:00 EDT, Dry Weight Start Date: 05/16/24 Status: Ordered oxyCODONE 10 mg oral tablet See Instructions, 0.5-1 tablet By Mouth Every 4 hours, max 4 tabs in 24 hours, # 112 tablet, 0 Refills, Maintenance, 05/17/24 10:12:00 EDT, [facility]/pharmacy #[id number], 158, cm, 05/08/24 10:56:00 EDT, Height,63.5, kg, 07/09/23 13:09:00 EDT, Dry Weight, 4, tablet Start Date: 05/17/24 Status: Ordered OxyCONTIN 10 mg oral tablet, extended release 10 mg, 1, tablet, By Mouth, Every 12 hours, CALENDAR, # 56 tablet, Refills 0, Tot. Refills 0, Maintenance, 05/17/24 10:12:00 EDT, Route to Pharmacy Electronically, [facility]/pharmacy #[id number], Partial fill upon patient request; CALENDAR, 158, cm, 05/08/24 10:5... Start Date: 05/17/24 Status: Ordered simvastatin 20 mg oral tablet 20 mg, 1, tablet, By Mouth, Daily at bedtime, # 90 tablet, Refills 1, Tot. Refills 1, Maintenance, 02/22/24 13:47:00 EDT, Route to Pharmacy Electronically, [facility]/pharmacy #[id number], Partial fill upon patient request if the prescription is for a schedule II... 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 Rubber Tester Member Role: City Superintendent Name: Alba oMore MD Position: [facility] Physician - Primary Care Member Role: PCP Address: Address: [address] [place] [address] [address] [place] [address]- Name: Traci Adler RN Position: [facility] RN Member Role: Primary Care Nurse Care Team Related Persons Name: ROGERS VELASQUEZ Address: home [address] [facility] [place] [address] Name: OMI VELASQUEZ Address: home [address] [place] [address] Name: ANGELA VELASQUEZ Address: home [address] [place] [address]
--- OUTSIDE RECORDS SUMMARY | 2024-07-01 17:07 | XMS_ITS | Continuity of Care Document ---
Author Organization [facility] Adult Address [address] [place] [address]- Care Team Providers Care Cinder Snapper Name Role Phone Oscar MCMANUS, Alba Primary Care Physician Encounter [facility] Date(s): 10/23/23 - 11/22/23 [facility] [address] [place] [phone]- Allergies, Adverse Reactions, Alerts Substance Reaction Severity Status sulfa drugs Active iodinated radiocontrast dyes Active Bactrim Active Latex Active Seafood Active Kiwi Active Cipro hives Active Other Environmental Allergy Active iodine Active [...] Diphth-Tetanus Toxoids Adsorbed(oldterm) 08/22/08 Given 1Result Comment: [facility] [id number] 2Admin Note: [facility] 3Admin Note: sarah 4Result Comment: [id number] 5Admin Note: [facility] Medications ClearLax oral powder for reconstitution 1 scoop, By Mouth, Daily, PRN Constipation, dissolve in water or juice, # 527 Gm, 5 Refills, Maintenance, 11/25/19 12:24:00 EST, [facility] #[id number], 1 scoop By Mouth Daily,PRN:Constipation,Instr:dissolve in water or juice, 158, cm, 09/30/19 1... Start Date: 11/25/19 Status: Ordered EpiPen 2-Minor 0.3 mg injectable kit See Instructions, Intramuscular Once, # 1 each, 1 Refills, Soft Stop, 07/08/21 14:29:00 EDT, [facility] #[id number], 158, cm, 06/28/21 11:31:00 EDT, Height, 65.7, kg, 06/16/21 13:22:00 EDT, Dry Weight Start Date: 07/08/21 Status: Ordered Estrace Vaginal Cream 0.1 mg/g 1 gram, Vaginally, Daily at bedtime, Apply daily at bedtime for 2 weeks and then 2 times per week, # 42 Gm, 3 Refills, Maintenance, 07/15/23 15:07:00 EDT, [facility] #[id number], 158, cm, 07/15/23 14:57:00 EDT, Height, 63.5, [...] 05/04/23 14:23:00 EDT, Route to Pharmacy Electronically, [facility] #[id number], 158, cm, 04/01/23 7:42:00 EDT, Height, 64, kg, 07/10/21 9:37:00 EDT, Dry Weight Start Date: 05/04/23 Status: Ordered Myrbetriq 25 mg oral tablet, extended release 1 tablet = 25 mg, By Mouth, Daily, # 30 tablet, 5 Refills, Maintenance, 07/15/23 15:07:00 EDT, [facility] #[id number], Partial fill upon patient request if the prescription is for a schedule II opioid drug., 158, cm, 07/15/23 14:57:00 EDT, Height... Start Date: 07/15/23 Status: Ordered Narcan 4 mg/0.1 mL nasal spray = 4 mg, Nares, Both, Once, may repeat every 2 to 3 minutes until patient responds, # 1 each, 0 Refills, Soft Stop, 11/25/22 9:21:00 EST, [facility] #[id number], Partial fill upon patient requestif the prescription [...] hours, # 112 tablet, 0 Refills, Maintenance, 11/18/23 12:51:00 EST, [facility] #[id number], CALENDAR, 158, cm, 11/09/23 9:33:00 EST, Height, 63.5, kg, 07/09/23 13:0... Start Date: 11/18/23 Status: Ordered OxyCONTIN 10 mg oral tablet, extended release 10 mg, 1, tablet, By Mouth, Every 12 hours, CALENDAR, # 56 tablet, Refills 0, Tot. Refills 0, Maintenance, 10/23/23 17:07:00 EST, Route to Pharmacy Electronically, [facility] #[id number], Partial fill upon patient request; CALENDAR, 158, cm, 09/12... Start Date: 10/23/23 Status: Ordered tadalafil 5 mg oral tablet 1 tablet = 5 mg, TAKE ONE TABLET BY MOUTH EVERY DAY Start Date: 11/09/23 Status: Ordered traZODone 100 mg oral tablet 100 mg, 1, tablet, By Mouth, Daily at bedtime, PRN, # 30 tablet, Refills 1, Tot. Refills 1, Maintenance, Sleep, 11/09/23 9:29:00 EST, Route to Pharmacy Electronically, [facility] #[id number], Partial fill upon patient request if the prescription... Start Date: 11/09/23 Status: Ordered Ventolin HFA 108 mcg/inh inhalation aerosol with adapter 2 puffs, Inhalation, Every 4 hours, PRN Wheezing/Shortness of Breath, # 1 each, 5 Refills, Maintenance, 05/20/23 12:01:00 EDT, [facility] #[id number], Asthma J45.909;, 158, cm, 04/01/23 7:42:00 EDT, [...] Team Personnel Name: Kaykay Craft [place] Position: [facility] RN Member Role: Primary Care Nurse Name: Alba Moore MD Position: [facility] Physician - Primary Care Member Role: PCP Address: Address: [address] [place] [address] 3rd Floor [facility] [place] [address]- [place] Name: Vitor MILLER, Traci Position: [facility] Operating Room Scheduler Member Role: Primary Care Nurse Care Team Related Persons Name: ROGERS VELASQUEZ Address: home [address] [facility] [place] [address] Name: OMI VELASQUEZ Address: home [address] [place] [address] Name: ANGELA VELASQUEZ Address: home [address] [place] [address]
--- OUTSIDE RECORDS SUMMARY | 2024-07-01 17:07 | XMS_ITS | Continuity of Care Document ---
Author Organization [facility] Adult Address [address] [place] [address]- Care Team Providers Care Microstrategy Architect Developer Name Role Phone Oscar MCMANUS, Alba Primary Care Physician Encounter [facility] Date(s): 05/13/24 - 06/12/24 [facility] [address] [place] [phone]- Allergies, Adverse Reactions, Alerts Substance Reaction Severity [...] Diphth-Tetanus Toxoids Adsorbed(oldterm) 08/22/08 Given 1Result Comment: [facility] [id number] 2Result Comment: [facility] [id number] 3Admin Note: [facility] 4Admin Note: sarah 5Result Comment: [id number] 6Admin Note: [facility] Medications Albuterol (Eqv-Ventolin HFA) 90 mcg/inh inhalation aerosol See Instructions, INHALE 2 PUFFS BY MOUTH EVERY 4 HOURS NEEDED FOR WHEEZING OR SHORTNESS OF BREATH, # 18 each, 5 Refills, Maintenance, 02/22/24 17:04:00 EDT, [id number], 30, INHALE 2 PUFFS BYMOUTH EVERY 4 HOURS NEEDED FOR WHEEZING OR SHORT... Start Date: 02/22/24 Status: Ordered ClearLax oral powder for reconstitution 1 scoop, By Mouth, Daily, PRN Constipation, dissolve in water or juice, # 527 Gm, 5 Refills, Maintenance, 05/30/24 12:21:00 EDT, [facility]/pharmacy #[id number], 1 scoop By Mouth Daily,PRN:Constipation,Instr:dissolve in water or juice, 158, cm, 05/30/24 12:11:00 E... Start Date: 05/30/24 Status: Ordered EpiPen 2-Minor 0.3 mg injectable kit See Instructions, Intramuscular Once, # 1 each, 1 Refills, Soft Stop, 07/08/21 14:29:00 EDT, [facility] #[id number], 158, cm, 06/28/21 11:31:00 EDT, Height, 65.7, kg, 06/16/21 13:22:00 EDT, Dry Weight Start Date: 07/08/21 Status: Ordered Estrace Vaginal Cream 0.1 mg/g See Instructions, 1 gram Vaginally at bedtime twice per week, # 42 Gm, 4 Refills, Maintenance, 05/24/24 11:21:00 EDT, [facility]/pharmacy #[id number], Partial fill upon patient request [...] 03/21/24 9:38:00 EDT, Route to Pharmacy Electronically, [facility]/pharmacy #[id number], 158, cm, 02/18/24 10:21:00 EDT, Height, 63.5, kg, 07/09/23 13:09:00 EDT, Dry Weight Start Date: 03/21/24 Status: Ordered Myrbetriq 25 mg oral tablet, extended release 1 tablet = 25 mg, By Mouth, Daily, # 30 tablet, 5 Refills, Maintenance, 03/21/24 9:38:00 EDT, [facility]/pharmacy #[id number], Partial fill upon patient request if the prescription is for a schedule II opioid drug., 158, cm, 02/18/24 10:21:00 EDT, Height, 63.5, kg... Start Date: 03/21/24 Status: Ordered Narcan 4 mg/0.1 mL nasal spray = 4 mg, Nares, Both, Once, may repeat every 2 to 3 minutes until patient responds, # 1 each, 0 Refills, Soft Stop, 11/25/22 9:21:00 EST, [id number], Partial fill upon patient requestif the prescription is for a schedule II opioid alva... Start Date: 11/25/22 Status: Ordered omeprazole 20 mg oral enteric coated capsule 1 capsule, By Mouth, Daily, # 90 capsule, 1 Refills, Maintenance, 05/16/24 10:34:00 EDT, [facility] STORE [id number], 158, cm, 05/08/24 10:56:00 EDT, Height, 63.5, kg, 07/09/23 13:09:00 EDT, Dry Weight Start Date: 05/16/24 Status: Ordered oxyCODONE 10 mg oral tablet See Instructions, 0.5-1 tablet By Mouth Every 4 hours, max 4 tabs in 24 hours, # 112 tablet, 0 Refills, Maintenance, 05/17/24 10:12:00 EDT, [facility]/pharmacy #[id number], 158, cm, 05/08/24 10:56:00 EDT, Height,63.5, kg, 07/09/23 13:09:00 EDT, Dry Weight, 4, tablet Start Date: 05/17/24 Status: Ordered OxyCONTIN 10 mg oral tablet, extended release 10 mg, 1, tablet, By Mouth, Every 12 hours, CALENDAR, # 56 tablet, Refills 0, Tot. Refills 0, Maintenance, 05/17/24 10:12:00 EDT, Route to Pharmacy Electronically, [facility]/pharmacy #[id number], Partial fill upon patient request; CALENDAR, 158, cm, 05/08/24 10:5... Start Date: 05/17/24 Status: Ordered simvastatin 20 mg oral tablet 20 mg, 1, tablet, By Mouth, Daily at bedtime, # 90 tablet, Refills 1, Tot. Refills 1, Maintenance, 02/22/24 13:47:00 EDT, Route to Pharmacy Electronically, [facility]/pharmacy #[id number], Partial fill upon patient request if the prescription is for a schedule II... 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 prescription opiate use Confirmed Active Raynaud's syndrome Confirmed Active Restless legs syndrome Confirmed 2003 Active Solitary pulmonary nodule Confirmed Active Social History Social History Type Response Smoking Status Former smoker; Other : quit 1988; entered on: 02/14/15 Sex Patient Care team information Care Team Personnel Name: Kaykay Craft [place] Position: [facility] Office Staff Member Role: Primary Care Nurse Name: Liudmila Andujar Position: [facility] Finish Inspector Member Role: Rock Contractor Name: Alba Moore MD Position: [facility] Physician - Primary Care Member Role: PCP Address: Address: [address] [place] [address] [address] [place] [address]- Name: Traci Adler RN Position: [facility] RN Member Role: Primary Care Nurse Care Team Related Persons Name: ROGERS VELASQUEZ Address: home [address] [place] [address] Name: OMI VELASQUEZ Address: home [address] [place] [address] Name: ANGELA VELASQUEZ Address: home [address] [place] [address]
--- OUTSIDE RECORDS SUMMARY | 2024-07-01 17:07 | XMS_ITS | Continuity of Care Document ---
Author Organization [facility] Adult Address [address] [place] [address]- Care Team Providers Care Annealing Furnace Tender Name Role Phone Oscar MCMANUS, Alba Primary Care Physician Encounter [facility] Date(s): 02/10/24 - 03/11/24 [facility] Adult [address] [place] [address]- Allergies, Adverse Reactions, Alerts Substance Reaction Severity Status sulfa drugs Active iodinated radiocontrast dyes Active Cipro hives Active Macrobid Hives Active Bactrim Active Latex Active Bananas Active Avocado Active Kiwi Active iodine Active Seafood Active Other Environmental Allergy Active Immunizations Given and Recorded Vaccine Date [...] Diphth-Tetanus Toxoids Adsorbed(oldterm) 08/22/08 Given 1Result Comment: [facility] [id number] 2Admin Note: [facility] 3Admin Note: sarah 4Result Comment: [id number] 5Admin Note: [facility] Medications Albuterol (Eqv-Ventolin HFA) 90 mcg/inh inhalation aerosol See Instructions, INHALE 2 PUFFS BY MOUTH EVERY 4 HOURS NEEDED FOR WHEEZING OR SHORTNESS OF BREATH, # 18 each, 5 Refills, Maintenance, 02/22/24 17:04:00 EDT, [facility] [id number], 30, INHALE 2 PUFFS BYMOUTH EVERY 4 HOURS NEEDED FOR WHEEZING OR SHORT... Start Date: 02/22/24 Status: Ordered ClearLax oral powder for reconstitution 1 scoop, By Mouth, Daily, PRN Constipation, dissolve in water or juice, # 527 Gm, 5 Refills, Maintenance, 11/25/19 12:24:00 EST, [facility] #[id number], 1 scoop By Mouth Daily,PRN:Constipation,Instr:dissolve in water or juice, 158, cm, 09/30/19 1... Start Date: 11/25/19 Status: Ordered EpiPen 2-Minor 0.3 mg injectable kit See Instructions, Intramuscular Once, # 1 each, 1 Refills, Soft Stop, 07/08/21 14:29:00 EDT, [facility] #[id number], 158, cm, 06/28/21 11:31:00 EDT, Height, 65.7, kg, 06/16/21 13:22:00 EDT, Dry Weight Start Date: 07/08/21 Status: Ordered Estrace Vaginal Cream 0.1 mg/g 1 gram, Vaginally, Daily at bedtime, Apply daily at bedtime for 2 weeks and then 2 times per week, # 42 Gm, 3 Refills, Maintenance, 07/15/23 15:07:00 EDT, [facility] #[id number], 158, cm, 07/15/23 14:57:00 EDT, Height, 63.5, [...] 05/04/23 14:23:00 EDT, Route to Pharmacy Electronically, [facility] #[id number], 158, cm, 04/01/23 7:42:00 EDT, Height, 64, kg, 07/10/21 9:37:00 EDT, Dry Weight Start Date: 05/04/23 Status: Ordered Myrbetriq 25 mg oral tablet, extended release 1 tablet = 25 mg, By Mouth, Daily, # 30 tablet, 5 Refills, Maintenance, 07/15/23 15:07:00 EDT, [facility] #[id number], Partial fill upon patient request if the prescription is for a schedule II opioid drug., 158, cm, 07/15/23 14:57:00 EDT, Height... Start Date: 07/15/23 Status: Ordered Narcan 4 mg/0.1 mL nasal spray = 4 mg, Nares, Both, Once, may repeat every 2 to 3 minutes until patient responds, # 1 each, 0 Refills, Soft Stop, 11/25/22 9:21:00 EST, [facility] #[id number], Partial fill upon patient requestif the prescription [...] tablet, 0 Refills, Maintenance, 02/10/24 12:55:00 EDT, [facility]/pharmacy #[id number], CALENDAR, 158, cm, 12/07/23 12:03:00 EST, Height, 63.5, kg, 07/09/23 13:09:00 EDT... Start Date: 02/10/24 Status: Ordered OxyCONTIN 10 mg oral tablet, extended release 10 mg, 1, tablet, By Mouth, Every 12 hours, TO BE FILLED 02/15/24 CALENDAR, # 56 tablet, Refills 0, Tot. Refills 0, Maintenance, 02/10/24 12:55:00 EDT, Route to Pharmacy Electronically, [facility]/pharmacy #[id number], Partial fill upon patient request; CALENDAR,... Start Date: 02/10/24 Status: Ordered simvastatin 20 mg oral tablet 20 mg, 1, tablet, By Mouth, Daily at bedtime, # 90 tablet, Refills 1, Tot. Refills 1, Maintenance, 02/22/24 13:47:00 EDT, Route to Pharmacy Electronically, [facility]/pharmacy #[id number], Partial fill upon patient request if the prescription is for a schedule II... Start Date: 02/22/24 Status: Ordered traZODone 100 mg oral tablet 100 mg, 1, tablet, By Mouth, Daily at bedtime, PRN, # 90 tablet, Refills 0, Tot. Refills 0, Maintenance, Sleep, 02/11/24 11:11:00 EDT, Route to Pharmacy Electronically, [facility]/pharmacy #[id number], Partial fill upon patient [...] smoker; Other : quit 1988; entered on: 5/6/15 Sex Patient Care team information Care Team Personnel Name: Kaykay Craft [place] Position: [facility] Office Staff Member Role: Primary Care Nurse Name: Oscar MCMANUS, Alba Position: [facility] Physician - Primary Care Member Role: PCP Address: Address: [address] [place] [address] [address]rd [place] [address]- Name: Vitor MILLER, Traci Position: [facility] Hospital Deputy Sheriff Generalist/Bailiff Member Role: Primary Care Nurse Care Team Related Persons Name: ROGERS VELASQUEZ Address: home [address] [address] [place] [address] Name: OMI VELASQUEZ Address: home [address] [place] [address] Name: ANGELA VELASQUEZ Address: home [address] [place] [address]
--- OUTSIDE RECORDS SUMMARY | 2024-07-01 17:07 | XMS_ITS | Continuity of Care Document ---
Author Organization [facility] Adult Address [address] [place] [address]- Care Team Providers Care Electrical Tester Battery Name Role Phone Oscar MCMANUS, Alba Primary Care Physician Encounter [facility] Date(s): 05/19/24 - 06/18/24 [facility] Adult [address] [place] [id number]- Allergies, Adverse Reactions, Alerts Substance Reaction Severity Status Latex Active Seafood Active iodine Active Kiwi Active sulfa drugs Active iodinated radiocontrast dyes Active Cipro hives Active Macrobid Hives Active Bactrim Active Other Environmental Allergy Active Bananas Active [...] 08/22/08 Given 1Result Comment: [facility] [id number] 2Result Comment: [facility] [id number] 3Admin Note: [facility] 4Admin Note: sarah 5Result Comment: [id number] 6Admin Note: [facility] Medications Albuterol (Eqv-Ventolin HFA) 90 mcg/inh inhalation aerosol See Instructions, INHALE 2 PUFFS BY MOUTH EVERY 4 HOURS NEEDED FOR WHEEZING OR SHORTNESS OF BREATH, # 18 each, 5 Refills, Maintenance, 02/22/24 17:04:00 EDT, [facility] [id number], 30, INHALE 2 PUFFS BYMOUTH EVERY 4 HOURS NEEDED FOR WHEEZING OR SHORT... Start Date: 02/22/24 Status: Ordered ClearLax oral powder for reconstitution 1 scoop, By Mouth, Daily, PRN Constipation, dissolve in water or juice, # 527 Gm, 5 Refills, Maintenance, 05/30/24 12:21:00 EDT, [facility]/pharmacy #[id number], 1 scoop By Mouth Daily,PRN:Constipation,Instr:dissolve in water or juice, 158, cm, 05/30/24 12:11:00 E... Start Date: 05/30/24 Status: Ordered EpiPen 2-Minor 0.3 mg injectable kit See Instructions, Intramuscular Once, # 1 each, 1 Refills, Soft Stop, 07/08/21 14:29:00 EDT, [id number], 158, cm, 06/28/21 11:31:00 EDT, Height, 65.7, kg, 06/16/21 13:22:00 EDT, Dry Weight Start Date: 07/08/21 Status: Ordered Estrace Vaginal Cream 0.1 mg/g See Instructions, 1 gram Vaginally at bedtime twice per week, # 42 Gm, 4 Refills, Maintenance, 05/24/24 11:21:00 EDT, [facility]/pharmacy #[id number], Partial fill upon patient request [...] 03/21/24 9:38:00 EDT, Route to Pharmacy Electronically, [facility]/pharmacy #[id number], 158, cm, 02/18/24 10:21:00 EDT, Height, 63.5, kg, 07/09/23 13:09:00 EDT, Dry Weight Start Date: 03/21/24 Status: Ordered Myrbetriq 25 mg oral tablet, extended release 1 tablet = 25 mg, By Mouth, Daily, # 30 tablet, 5 Refills, Maintenance, 03/21/24 9:38:00 EDT, [facility]/pharmacy #[id number], Partial fill upon patient request if the prescription is for a schedule II opioid drug., 158, cm, 02/18/24 10:21:00 EDT, Height, 63.5, kg... Start Date: 03/21/24 Status: Ordered Narcan 4 mg/0.1 mL nasal spray = 4 mg, Nares, Both, Once, may repeat every 2 to 3 minutes until patient responds, # 1 each, 0 Refills, Soft Stop, 11/25/22 9:21:00 EST, [facility] #[id number], Partial fill upon patient requestif the prescription is for a schedule II opioid alva... Start Date: 11/25/22 Status: Ordered omeprazole 20 mg oral enteric coated capsule 1 capsule, By Mouth, Daily, # 90 capsule, 1 Refills, Maintenance, 05/16/24 10:34:00 EDT, [facility] STORE [id number], 158, cm, 05/08/24 10:56:00 EDT, Height, 63.5, kg, 07/09/23 13:09:00 EDT, Dry Weight Start Date: 05/16/24 Status: Ordered oxyCODONE 10 mg oral tablet See Instructions, 0.5-1 tablet By Mouth Every 4 hours, max 4 tabs in 24 hours, # 112 tablet, 0 Refills, Maintenance, 06/14/24 19:24:00 EDT, [facility]/pharmacy #[id number], 158, cm, 06/03/24 7:47:00 EDT, Height, 63.5, kg, 07/09/23 13:09:00 EDT, Dry Weight, 4, tablet Start Date: 06/14/24 Status: Ordered OxyCONTIN 10 mg oral tablet, extended release 10 mg, 1, tablet, By Mouth, Every 12 hours, CALENDAR, # 56 tablet, Refills 0, Tot. Refills 0, Maintenance, 06/14/24 19:24:00 EDT, Route to Pharmacy Electronically, [facility]/pharmacy #[id number], Partial fill upon patient request; CALENDAR, 158, cm, 06/03/24 7:47... Start Date: 06/14/24 Status: Ordered simvastatin 20 mg oral tablet 20 mg, 1, tablet, By Mouth, Daily at bedtime, # 90 tablet, Refills 1, Tot. Refills 1, Maintenance, 02/22/24 13:47:00 EDT, Route to Pharmacy Electronically, [facility]/pharmacy #[id number], Partial fill upon patient request if the prescription is for a schedule II... Start Date: 02/22/24 Status: Ordered traZODone 100 mg oral tablet 1, tablet, By Mouth, Daily at bedtime, PRN, # 90 tablet, Refills 1, Maintenance, NEEDED FOR SLEEP, 05/09/24 15:49:00 EDT, Route to Pharmacy Electronically, [facility] STORE [id number], 158, cm, 05/08/24 10:56:00 EDT, Height, 63.5, [...] Active Pituitary microadenoma, 4mm Confirmed 2020 Active custodial prescription opiate use Confirmed Active Raynaud's syndrome Confirmed Active Restless legs syndrome Confirmed 2003 Active Solitary pulmonary nodule Confirmed Active Social History Social History Type Response Smoking Status Former smoker; Other : quit 1988; entered on: 02/14/15 Sex Patient Care team information Care Team Personnel Name: Kaykay Craft [place] Position: [facility] Office Staff Member Role: Primary Care Nurse Name: Liudmila Andujar Position: [facility] Processing Associate Member Role: Wildlife Manager Name: Oscar MCMANUS, Alba Position: [facility] Physician - Primary Care Member Role: PCP Address: Address: [address] [place] [address] [address] [place] [address]- Name: Traci Adler RN Position: [facility] RN Member Role: Primary Care Nurse Care Team Related Persons Name: ROGERS VELASQUEZ Address: home [address] [place] [address] Name: OMI VELASQUEZ Address: home [address] [place] [address] Name: ANGELA VELASQUEZ Address: home [address] [place] [address]
--- OUTSIDE RECORDS SUMMARY | 2024-07-01 17:07 | XMS_ITS | Continuity of Care Document ---
Author Organization [facility] Adult Address [address] [place] [address]- Care Team Providers Care Nurse Head Name Role Phone Oscar MCMANUS, Alba Primary Care Physician [place] [facility] Date(s): 10/09/23 - 11/08/[address] [facility] Adult [address] [place] [address]- Attending Physician: Admtr, Ar8 Allergies, Adverse Reactions, Alerts Substance Reaction Severity Status sulfa drugs Active iodinated radiocontrast dyes Active Cipro hives Active Latex Active Seafood Active Kiwi Active Avocado Active Bactrim Active Other Environmental Allergy Active [...] Diphth-Tetanus Toxoids Adsorbed(oldterm) 08/22/08 Given 1Result Comment: [facility] [id number] 2[facility] Note: [facility] 3Admin Note: sarah 4Result Comment: [id number] 5Admin Note: [facility] Medications ClearLax oral powder for reconstitution 1 scoop, By Mouth, Daily, PRN Constipation, dissolve in water or juice, # 527 Gm, 5 Refills, Maintenance, 11/25/19 12:24:00 EST, [facility] #[id number], 1 scoop By Mouth Daily,PRN:Constipation,Instr:dissolve in water or juice, 158, cm, 09/30/19 1... Start Date: 11/25/19 Status: Ordered EpiPen 2-Minor 0.3 mg injectable kit See Instructions, Intramuscular Once, # 1 each, 1 Refills, Soft Stop, 07/08/21 14:29:00 EDT, [facility] #[id number], 158, cm, 06/28/21 11:31:00 EDT, Height, 65.7, kg, 06/16/21 13:22:00 EDT, Dry Weight Start Date: 07/08/21 Status: Ordered Estrace Vaginal Cream 0.1 mg/g 1 gram, Vaginally, Daily at bedtime, Apply daily at bedtime for 2 weeks and then 2 times per week, # 42 Gm, 3 Refills, Maintenance, 07/15/23 15:07:00 EDT, [facility] #[id number], 158, cm, 07/15/23 14:57:00 EDT, Height, 63.5, kg, 07/09/23 13:09:00... Start Date: 07/15/23 Status: Ordered ibuprofen 600 mg oral tablet 1, tablet, By Mouth, 3 times a day, # 90 tablet, Refills 3, Tot. Refills 3, Maintenance, 05/04/23 14:23:00 EDT, Route to Pharmacy Electronically, [facility] #[id number], 158, cm, 04/01/23 7:42:00 EDT, Height, 64, kg, 07/10/21 9:37:00 EDT, Dry Weight Start Date: 05/04/23 Status: Ordered Myrbetriq 25 mg oral tablet, extended release 1 tablet = 25 mg, By Mouth, Daily, # 30 tablet, 5 Refills, Maintenance, 07/15/23 15:07:00 EDT, [facility] #[id number], Partial fill upon patient request if the prescription is for a schedule II opioid drug., 158, cm, 07/15/23 14:57:00 EDT, Height... Start Date: 07/15/23 Status: Ordered Narcan 4 mg/0.1 mL nasal spray = 4 mg, Nares, Both, Once, may repeat every 2 to 3 minutes until patient responds, # 1 each, 0 Refills, Soft Stop, 11/25/22 9:21:00 EST, [facility] #[id number], Partial fill upon patient requestif the prescription [...] hours, # 112 tablet, 0 Refills, Maintenance, 10/21/23 13:15:00 EST, [facility] #[id number], CALENDAR, 158, cm, 10/09/23 13:49:00 EST, Height, 63.5, kg, 07/09/23 13:... Start Date: 10/21/23 Status: Ordered OxyCONTIN 10 mg oral tablet, extended release 10 mg, 1, tablet, By Mouth, Every 12 hours, CALENDAR, # 56 tablet, Refills 0, Tot. Refills 0, Maintenance, 10/23/23 17:07:00 EST, Route to Pharmacy Electronically, [facility] #[id number], Partial fill upon patient request; CALENDAR, 158, cm, 09/12... Start Date: 10/23/23 Status: Ordered Ventolin HFA 108 mcg/inh inhalation aerosol with adapter 2 puffs, Inhalation, Every 4 hours, PRN Wheezing/Shortness of Breath, # 1 each, 5 Refills, Maintenance, 05/20/23 12:01:00 EDT, [facility] #[id number], Asthma J45.909;, 158, cm, 04/01/23 7:42:00 EDT, Height, 64, kg, 07/10/21 9:37:00 EDT, Dry Weight Start Date: 05/20/23 Status: Ordered Wellbutrin XL 150 mg/24 hours oral tablet, extended release 1 tablet = 150 mg, By Mouth, Every 24 hours, # 30 tablet, 1 Refills, Maintenance, 07/15/23 15:14:00EDT, ER Tablet, [facility] #[id number], Partial fill upon patient request if the [...] Event Display: Cardiovascular Results Scanned Authored Date: [id number] Radiology * Event Display: Ultrasound Abdomen, Non-BH Authored Date: * Event Display: MRI Head, Non- BH Authored Date: * Event Display: MRI Head, Non- BH Authored Date: * Event Display: X-Ray Abdomen, Non- Authored Date: Patient Care team information Care Team Personnel Name: Kaykay Craft [place] Position: [facility] RN Member Role: Primary Care Nurse Name: Oscar MCMANUS, Alba Position: [facility] Physician - Primary Care Member Role: PCP Address: Address: [address] [place] [id number] Name: Vitor MILLER, Traci Position: [facility] Longitudinal Float Operator Member Role: Primary Care Nurse Care Team Related Persons Name: ROGERS VELASQUEZ Address: [address] [facility] [place] [address] Name: OMI VELASQUEZ Address: home [address] [place] [address] Name: ANGELA VELASQUEZ Address: home [address] [place] [address]
--- OUTSIDE RECORDS SUMMARY | 2024-07-01 17:08 | XMS_ITS | Continuity of Care Document ---
Author Organization [facility] Adult Address [address] [place] [address]- Care Team Providers Care Credit Report Checker Name Role Phone Oscar MCMANUS, Alba Primary Care Physician [place] [facility] [place](s): 03/21/24 - 04/20/24 [facility] Adult [address] [place] [id number]- Attending Physician: Admtr, Ar8 Allergies, Adverse Reactions, [...] Toxoids Adsorbed(oldterm) 08/22/08 Given 1Result Comment: [facility] [id number] 2Admin Note: [facility] 3Admin Note: sarah 4Result Comment: [id number] 5Admin Note: [facility] Medications Albuterol (Eqv-Ventolin HFA) 90 mcg/inh inhalation aerosol See Instructions, INHALE 2 PUFFS BY MOUTH EVERY 4 HOURS NEEDED FOR WHEEZING OR SHORTNESS OF BREATH, # 18 each, 5 Refills, Maintenance, 02/22/24 17:04:00 EDT, [id number], 30, INHALE 2 PUFFS BYMOUTH EVERY 4 HOURS NEEDED FOR WHEEZING OR SHORT... Start Date: 02/22/24 Status: Ordered ClearLax oral powder for reconstitution 1 scoop, By Mouth, Daily, PRN Constipation, dissolve in water or juice, # 527 Gm, 5 Refills, Maintenance, 11/25/19 12:24:00 EST, [facility] #[id number], 1 scoop By Mouth Daily,PRN:Constipation,Instr:dissolve in water or juice, 158, cm, 09/30/19 1... Start Date: 11/25/19 Status: Ordered EpiPen 2-Minor 0.3 mg injectable kit See Instructions, Intramuscular Once, # 1 each, 1 Refills, Soft Stop, 07/08/21 14:29:00 EDT, [facility] #[id number], 158, cm, 06/28/21 11:31:00 EDT, Height, 65.7, kg, 06/16/21 13:22:00 EDT, Dry Weight Start Date: 07/08/21 Status: Ordered Estrace Vaginal Cream 0.1 mg/g 1 gram, Vaginally, Daily at bedtime, Apply daily at bedtime for 2 weeks and then 2 times per week, # 42 Gm, 3 Refills, Maintenance, 03/21/24 9:38:00 EDT, [facility]/pharmacy #[id number], 158, cm, 02/18/24 10:21:00 EDT, Height, [...] 9:38:00 EDT, Route to Pharmacy Electronically, [facility]/pharmacy #[id number], 158, cm, 02/18/24 10:21:00 EDT, Height, 63.5, kg, 07/09/23 13:09:00 EDT, Dry Weight Start Date: 03/21/24 Status: Ordered Myrbetriq 25 mg oral tablet, extended release 1 tablet = 25 mg, By Mouth, Daily, # 30 tablet, 5 Refills, Maintenance, 03/21/24 9:38:00 EDT, [facility]/pharmacy #[id number], Partial fill upon patient request if the prescription is for a schedule II opioid drug., 158, cm, 02/18/24 10:21:00 EDT, Height, 63.5, kg... Start Date: 03/21/24 Status: Ordered Narcan 4 mg/0.1 mL nasal spray = 4 mg, Nares, Both, Once, may repeat every 2 to 3 minutes until patient responds, # 1 each, 0 Refills, Soft Stop, 11/25/22 9:21:00 EST, [facility] #[id number], Partial fill upon patient requestif the prescription is for a schedule II opioid alva... Start Date: 11/25/22 Status: Ordered omeprazole 20 mg oral enteric coated capsule 1 capsule = 20 mg, By Mouth, Daily, # 90 capsule, 0 Refills, Maintenance, 03/21/24 9:36:00 EDT, EC Capsule, [facility]/pharmacy #[id number], 158, cm, 02/18/24 10:21:00 EDT, Height, 63.5, kg, 07/09/23 13:09:00 EDT, Dry Weight Start Date: 03/21/24 Stop Date: 06/19/24 Status: Ordered oxyCODONE 10 mg oral tablet See Instructions, 0.5-1 tablet By Mouth Every 4 hours, max 4 tabs in 24 hours, # 112 tablet, 0 Refills, Maintenance, 04/20/24 17:27:00 EDT, [facility]/pharmacy #[id number], 158, cm, 03/21/24 9:39:00 EDT, Height, 63.5, kg, 07/09/23 13:09:00 EDT, Dry Weight, 4, tablet Start Date: 04/20/24 Status: Ordered OxyCONTIN 10 mg oral tablet, extended release 10 mg, 1, tablet, By Mouth, Every 12 hours, CALENDAR, # 56 tablet, Refills 0, Tot. Refills 0, Maintenance, 04/20/24 17:27:00 EDT, Route to Pharmacy Electronically, [facility]/pharmacy #[id number], Partial fill upon patient request; CALENDAR, 158, cm, 03/21/24 9:39... Start Date: 04/20/24 Status: Ordered simvastatin 20 mg oral tablet [...] 02/11/24 11:11:00 EDT, Route to Pharmacy Electronically, [facility]/pharmacy #[id number], Partial fill upon patient request if [...] Authored Date: * Event Display: X-Ray Abdomen, [facility]- Authored Date: Patient Care team information Care Team Personnel Name: Kaykay Craft [place] Position: [facility] Staff Member Role: Primary Care Nurse Name: Alba Moore MD Position: [facility] Physician - Primary Care Member Role: PCP Address: Address: [address] [place] [address] [address] [place] [address]- Name: Traci Adler RN Position: [facility] Hospital Branch General Manager Member Role: Primary Care Nurse Care Team Related Persons Name: ROGERS VELASQUEZ Address: home [address] [place] [address] Name: OMI VELASQUEZ Address: home [address] [place] [address] Name: ANGELA VELASQUEZ Address: home [address] [place] [address]
--- OUTSIDE RECORDS SUMMARY | 2024-07-01 17:08 | XMS_ITS | Continuity of Care Document ---
Author Organization [facility] Adult Address [address] [place] [address]- Care Team Providers Care Bead Wire Insulator Name Role Phone Oscar MCMANUS, Alba Primary Care Physician Encounter [facility] Date(s): 03/14/24 - 04/13/24 [facility] Adult [address] [place] [id number]- Allergies, Adverse Reactions, Alerts Substance Reaction Severity Status Latex Active Kiwi Active sulfa drugs Active iodinated [...] Diphth-Tetanus Toxoids Adsorbed(oldterm) 08/22/08 Given 1Result Comment: [facility] [id number] 2Admin Note: [facility] 3Admin Note: sarah 4Result Comment: [id number] 5Admin Note: [facility] Medications Albuterol (Eqv-Ventolin HFA) 90 mcg/inh inhalation aerosol See Instructions, INHALE 2 PUFFS BY MOUTH EVERY 4 HOURS NEEDED FOR WHEEZING OR SHORTNESS OF BREATH, # 18 each, 5 Refills, Maintenance, 02/22/24 17:04:00 EDT, [id number], 30, INHALE 2 PUFFS BYMOUTH EVERY 4 HOURS NEEDED FOR WHEEZING OR SHORT... Start Date: 02/22/24 Status: Ordered ClearLax oral powder for reconstitution 1 scoop, By Mouth, Daily, PRN Constipation, dissolve in water or juice, # 527 Gm, 5 Refills, Maintenance, 11/25/19 12:24:00 EST, [facility] #[id number], 1 scoop By Mouth Daily,PRN:Constipation,Instr:dissolve in water or juice, 158, cm, 09/30/19 1... Start Date: 11/25/19 Status: Ordered EpiPen 2-Minor 0.3 mg injectable kit See Instructions, Intramuscular Once, # 1 each, 1 Refills, Soft Stop, 07/08/21 14:29:00 EDT, [facility] #[id number], 158, cm, 06/28/21 11:31:00 EDT, Height, 65.7, kg, 06/16/21 13:22:00 EDT, Dry Weight Start Date: 07/08/21 Status: Ordered Estrace Vaginal Cream 0.1 mg/g 1 gram, Vaginally, Daily at bedtime, Apply daily at bedtime for 2 weeks and then 2 times per week, # 42 Gm, 3 Refills, Maintenance, 03/21/24 9:38:00 EDT, [facility]/pharmacy #[id number], 158, cm, 02/18/24 10:21:00 [...] 03/21/24 9:38:00 EDT, Route to Pharmacy Electronically, [facility]/pharmacy #[id number], 158, cm, 02/18/24 10:21:00 EDT, Height, 63.5, kg, 07/09/23 13:09:00 EDT, Dry Weight Start Date: 03/21/24 Status: Ordered morphine 15 mg oral tablet, immediate release 1 tablet = 15 mg, By Mouth, Every 6 hours, PRN as needed for pain, for 28 days, DIRECTOR OF CONSTRUCTION reviewed, # 112tablet, 0 Refills, Acute 04/18/24 10:21:00 EDT, 03/21/24 10:21:00 EDT, Tablet, [facility]/pharmacy #[id number], Partial fill upon patient request if the prescriptio... Start Date: 03/21/24 Stop Date: 04/18/24 Status: Ordered morphine 15 mg/8 to 12 hr oral tablet, extended release 1 tablet = 15 mg, By Mouth, Every 12 hours, DIRECTOR OF CONSTRUCTION reviewed, # 56 tablet, 0 Refills, Maintenance, 03/21/24 10:21:00 EDT, ER Tablet, [facility]/pharmacy #[id number], Partial fill upon patient request if the prescription is for a schedule II opioid drug. Opioid Switch,... Start Date: 03/21/24 Stop Date: 04/18/24 Status: Ordered Myrbetriq 25 mg oral tablet, extended release 1 tablet = 25 mg, By Mouth, Daily, # 30 tablet, 5 Refills, Maintenance, 03/21/24 9:38:00 EDT, [facility]/pharmacy #[id number], Partial fill upon [...] 0 Refills, Soft Stop, 11/25/22 9:21:00 EST, [facility] #[id number], Partial fill upon patient requestif the prescription is for a schedule II opioid alva... Start Date: 11/25/22 Status: Ordered omeprazole 20 mg oral enteric coated capsule 1 capsule = 20 mg, By Mouth, Daily, # 90 capsule, 0 Refills, Maintenance, 03/21/24 9:36:00 EDT, EC Capsule, [facility]/pharmacy #[id number], 158, cm, 02/18/24 10:21:00 EDT, Height, 63.5, kg, 07/09/23 13:09:00 EDT, Dry Weight Start Date: 03/21/24 Stop Date: 06/19/24 Status: Ordered simvastatin 20 mg oral tablet 20 mg, 1, tablet, By Mouth, Daily at bedtime, # 90 tablet, Refills 1, Tot. Refills 1, Maintenance, 02/22/24 13:47:00 EDT, Route to Pharmacy Electronically, [facility]/pharmacy #[id number], Partial fill upon patient request if the prescription is for a schedule II... Start Date: 02/22/24 Status: Ordered traZODone 100 mg oral tablet 100 mg, 1, tablet, By Mouth, Daily at bedtime, PRN, # 90 tablet, Refills 0, Tot. 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 prescription opiate use Confirmed Active Raynaud's syndrome Confirmed Active Restless legs syndrome Confirmed 2003 Active Solitary pulmonary nodule Confirmed Active Social History Social History Type Response Smoking Status Former smoker; Other : quit 1988; entered on: 02/14/15 Sex Patient Care team information Care Team Personnel Name: Kaykay Craft [place] Position: [facility] Office Staff Member Role: Primary Care Nurse Name: Oscar MCMANUS, Alba Position: [facility] Physician - Primary Care Member Role: PCP Address: Address: [address] [place] [id number]- Name: Vitor MILLER, Traci Position: [facility] Hospital Roller Man Member Role: Primary Care Nurse Care Team Related Persons Name: ROGERS VELASQUEZ Address: [address] [place] [address] Name: OMI VELASQUEZ Address: home [address] [place] [address] Name: ANGELA VELASQUEZ Address: home [address] [place] [address]
--- OUTSIDE RECORDS SUMMARY | 2024-07-01 17:08 | XMS_ITS | Continuity of Care Document ---
Author Organization [facility] Address [address], [address] [place] [address]- Care Team Providers Care Radio Operator Ground Name Role Phone Oscar MCMANUS, Alba Primary Care Physician Encounter [facility] Date(s): 01/21/24 - 05/20/24 [facility] [address] [place], [place] [address] Attending Physician: Not on Staff, Attending MD Referring Physician: Shahrzad Cee Allergies, Adverse Reactions, Alerts Substance Reaction Severity [...] Diphth-Tetanus Toxoids Adsorbed(oldterm) 08/22/08 Given 1Result Comment: [facility] [id number] 2Admin Note: [facility] 3Admin Note: sarah 4Resreza Comment: [id number] 5Admin Note: [facility] Medications Albuterol (Eqv-Ventolin HFA) 90 mcg/inh inhalation aerosol See Instructions, INHALE 2 PUFFS BY MOUTH EVERY 4 HOURS NEEDED FOR WHEEZING OR SHORTNESS OF BREATH, # 18 each, 5 Refills, Maintenance, 02/22/24 17:04:00 EDT, [id number], 30, INHALE 2 PUFFS BYMOUTH EVERY 4 HOURS NEEDED FOR WHEEZING OR SHORT... Start Date: 02/22/24 Status: Ordered ClearLax oral powder for reconstitution 1 scoop, By Mouth, Daily, PRN Constipation, dissolve in water or juice, # 527 Gm, 5 Refills, Maintenance, 11/25/19 12:24:00 EST, [facility] #[id number], 1 scoop By Mouth Daily,PRN:Constipation,Instr:dissolve in water or juice, 158, cm, 09/30/19 1... Start Date: 11/25/19 Status: Ordered diazepam 5 mg oral tablet See Instructions, 1 tab PO 1 hr. prior to procedure. May Repeat x 1 on arrival if needed for Procedural anxiety., # 2 tablet, Refills 0, Tot. Refills 0, Maintenance, 04/28/24 11:52:00 EDT, Instructions Replace Required Details, Route to Pharmacy Ele[facility]... Start Date: 04/28/24 Status: Ordered EpiPen 2-Minor 0.3 mg injectable kit See Instructions, Intramuscular Once, # 1 each, 1 Refills, Soft Stop, 07/08/21 14:29:00 EDT, [facility] #[id number], 158, cm, 06/28/21 11:31:00 EDT, Height, 65.7, kg, 06/16/21 13:22:00 EDT, Dry Weight Start Date: 07/08/21 Status: Ordered Estrace Vaginal Cream 0.1 mg/g 1 gram, Vaginally, Daily at bedtime, Apply daily at bedtime for 2 weeks and then 2 times per week, # 42 Gm, 3 Refills, Maintenance, 03/21/24 9:38:00 EDT, [facility] 0 Refills, Soft Stop, 11/25/22 9:21:00 EST, [facility] #[id number], Partial fill upon patient requestif the prescription is for a schedule II opioid alva... Start Date: 11/25/22 Status: Ordered omeprazole 20 mg oral enteric coated capsule 1 capsule, By Mouth, Daily, # 90 capsule, 1 Refills, Maintenance, 05/16/24 10:34:00 EDT, [id number], 158, cm, 05/08/24 10:56:00 EDT, Height, 63.5, kg, 07/09/23 13:09:00 EDT, Dry Weight Start Date: 05/16/24 Status: Ordered oxyCODONE 10 mg oral tablet See Instructions, 0.5-1 tablet By Mouth Every 4 hours, max 4 tabs in 24 hours, # 112 tablet, 0 Refills, Maintenance, 05/17/24 10:12:00 EDT, [facility]/pharmacy #[id number], 158, cm, 05/08/24 10:56:00 EDT, Height,63.5, kg, 07/09/23 13:09:00 EDT, Dry Weight, 4, tablet Start Date: 05/17/24 Status: Ordered OxyCONTIN 10 mg oral tablet, extended release 10 mg, 1, tablet, By Mouth, Every 12 hours, CALENDAR, # 56 tablet, Refills 0, Tot. Refills 0, Maintenance, 05/17/24 10:12:00 EDT, Route to Pharmacy Electronically, [facility] Electronically, [id number], 158, cm, 05/08/24 10:56:00 EDT, Height, 63.5, kg, 07/09/23 13:09:00 EDT, Dr... 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 prescription opiate use Confirmed Active Raynaud's syndrome Confirmed Active Restless legs syndrome Confirmed 2003 Active Solitary pulmonary nodule Confirmed Active Social History Social History Type Response Smoking Status Former smoker; Other : quit 1988; entered on: 02/14/15 Sex Patient Care team information Care Team Personnel Name: Kaykay Craft [place] Position: [facility] Office Staff Member Role: Primary Care Nurse Name: Liudmila Andujar Position: [facility] Ward Helper Member Role: Insurance Claim Representative Name: Alba Moore MD Position: [facility] Physician - Primary Care Member Role: PCP Address: Address: [address] [place] [address] [address] [place] [address]- Name: Traci Adler RN Position: [facility] RN Member Role: Primary Care Nurse Care Team Related Persons Name: ROGERS VELASQUEZ Address: home [address] [place] [address] Name: OMI EVLASQUEZ Address: home [address] [place] [address] Name: ANGELA VELASQUEZ Address: home [address] [place] [address]
--- OUTSIDE RECORDS SUMMARY | 2024-07-01 17:08 | XMS_ITS | Continuity of Care Document ---
Author Organization [facility] Adult Address [address] [place] [id number]- Care Team Providers Care Development Associate Name Role Phone Oscar MCMANUS, Alba Primary Care Physician Encounter [facility] Date(s): 05/30/24 - 06/06/24 [facility] Adult [address] [place] [id number]- Encounter Diagnosis Vaginal atrophy(Discharge Diagnosis) - 05/30/24 Memory loss(Discharge Diagnosis) - 05/30/24 Lumbar degenerative disc disease(Discharge Diagnosis) - 05/30/24 half-way prescription opiate use(Discharge Diagnosis) - 05/30/24 Attending Physician: Oscar MCMANUS, Alba Allergies, Adverse Reactions, Alerts Substance Reaction Severity Status Macrobid Hives Active Latex Active Seafood Active iodine Active Kiwi Active sulfa drugs Active iodinated radiocontrast dyes Active Cipro hives Active Bactrim Active Other Environmental Allergy Active [...] Toxoids Adsorbed(oldterm) 08/22/08 Given 1Result Comment: [facility] [id number] 2Result Comment: [facility] [id number] 3Admin Note: [facility] 4Admin Note: sarah 5Result Comment: [id number] 6Admin Note: [facility] Medications Albuterol (Eqv-Ventolin HFA) 90 mcg/inh inhalation aerosol See Instructions, INHALE 2 PUFFS BY MOUTH EVERY 4 HOURS NEEDED FOR WHEEZING OR SHORTNESS OF BREATH, # 18 each, 5 Refills, Maintenance, 02/22/24 17:04:00 EDT, [id number], 30, INHALE 2 PUFFS BYMOUTH EVERY 4 HOURS NEEDED FOR WHEEZING OR SHORT... Start Date: 02/22/24 Status: Ordered ClearLax oral powder for reconstitution 1 scoop, By Mouth, Daily, PRN Constipation, dissolve in water or juice, # 527 Gm, 5 Refills, Maintenance, 05/30/24 12:21:00 EDT, [facility]/pharmacy #[id number], 1 scoop By Mouth Daily,PRN:Constipation,Instr:dissolve in water or juice, 158, cm, 05/30/24 12:11:00 E... Start Date: 05/30/24 Status: Ordered EpiPen 2-Minor 0.3 mg injectable kit See Instructions, Intramuscular Once, # 1 each, 1 Refills, Soft Stop, 07/08/21 14:29:00 EDT, [facility] #[id number], 158, cm, 06/28/21 11:31:00 EDT, Height, 65.7, kg, 06/16/21 13:22:00 EDT, Dry Weight Start Date: 07/08/21 Status: Ordered Estrace Vaginal Cream 0.1 mg/g See Instructions, 1 gram Vaginally at bedtime twice per week, # 42 Gm, 4 Refills, Maintenance, 05/24/24 11:21:00 EDT, [facility]/pharmacy #[id number], Partial fill upon patient request [...] 03/21/24 9:38:00 EDT, Route to Pharmacy Electronically, [facility]/pharmacy #[id number], 158, cm, 02/18/24 10:21:00 EDT, Height, 63.5, kg, 07/09/23 13:09:00 EDT, Dry Weight Start Date: 03/21/24 Status: Ordered Myrbetriq 25 mg oral tablet, extended release 1 tablet = 25 mg, By Mouth, Daily, # 30 tablet, 5 Refills, Maintenance, 03/21/24 9:38:00 EDT, [facility]/pharmacy #[id number], Partial fill upon patient request if the prescription is for a schedule II opioid drug., 158, cm, 02/18/24 10:21:00 EDT, Height, 63.5, kg... Start Date: 03/21/24 Status: Ordered Narcan 4 mg/0.1 mL nasal spray = 4 mg, Nares, Both, Once, may repeat every 2 to 3 minutes until patient responds, # 1 each, 0 Refills, Soft Stop, 11/25/22 9:21:00 EST, [facility] #[id number], Partial fill upon patient requestif the prescription is for a schedule II opioid alva... Start Date: 11/25/22 Status: Ordered omeprazole 20 mg oral enteric coated capsule 1 capsule, By Mouth, Daily, # 90 capsule, 1 Refills, Maintenance, 05/16/24 10:34:00 EDT, [id number], 158, cm, 05/08/24 10:56:00 EDT, Height, 63.5, kg, 07/09/23 13:09:00 EDT, Dry Weight Start Date: 05/16/24 Status: Ordered oxyCODONE 10 mg oral tablet See Instructions, 0.5-1 tablet By Mouth Every 4 hours, max 4 tabs in 24 hours, # 112 tablet, 0 Refills, Maintenance, 05/17/24 10:12:00 EDT, [facility]/pharmacy #[id number], 158, cm, 05/08/24 10:56:00 EDT, Height,63.5, kg, 07/09/23 13:09:00 EDT, Dry Weight, 4, tablet Start Date: 05/17/24 Status: Ordered OxyCONTIN 10 mg oral tablet, extended release 10 mg, 1, tablet, By Mouth, Every 12 hours, CALENDAR, # 56 tablet, Refills 0, Tot. Refills 0, Maintenance, 05/17/24 10:12:00 EDT, Route to Pharmacy Electronically, [facility]/pharmacy #[id number], Partial fill upon patient request; CALENDAR, 158, cm, 05/08/24 10:5... Start Date: 05/17/24 Status: Ordered simvastatin 20 mg oral tablet 20 mg, 1, tablet, By Mouth, Daily at bedtime, # 90 tablet, Refills 1, Tot. Refills 1, Maintenance, 02/22/24 13:47:00 EDT, Route to Pharmacy Electronically, [facility]/pharmacy #[id number], Partial fill upon patient request if the prescription is for a schedule II... Start Date: 02/22/24 Status: Ordered traZODone 100 mg oral tablet 1, tablet, By Mouth, Daily at bedtime, PRN, # 90 tablet, Refills 1, Maintenance, NEEDED FOR SLEEP, 05/09/24 15:49:00 EDT, Route to Pharmacy Electronically, [id number], 158, cm, 05/08/24 10:56:00 EDT, Height, 63.5, kg, 07/09/23 13:09:00 EDT, Start Date: 05/09/24 Status: Ordered Problem List Condition Confirmation Course Effective Dates Status H ealth Status Informant Anxiety Confirmed Active Asthma, mild, intermittent Confirmed 2000 Active Vaginal atrophy Confirmed Active ADHD (attention [...] Active Pituitary microadenoma, 4mm Confirmed 2020 Active 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 continuous 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 prescription opiate use Confirmed Active Raynaud's syndrome Confirmed Active Restless legs syndrome Confirmed 2003 Active Solitary pulmonary nodule Confirmed Active Diagnosis Diagnosis Type Effective Dates Health Status Clinical Service Informant Vaginal atrophy Discharge Diagnosis 05/30/24 Memory loss Discharge Diagnosis 05/30/24 Lumbar degenerative disc disease Discharge Diagnosis 05/30/24 buttermaker continuous churn prescription opiate use Discharge Diagnosis 05/30/24 Vital Signs Most recent to oldest [Reference Range]: 1 Height 158 cm (05/30/24 12:11 PM) Weight 73.2 kg (05/30/24 12:11 PM) Oxygen Saturation [94-100 %] 96 % (05/30/24 12:11 PM) Pulse Rate [55-90 bpm] 66 bpm (05/30/24 12:11 PM) Body Mass Index [18.5-24.99 kg/m2] 29.32 kg/m2 *H* (05/30/24 12:11 PM) Blood Pressure [90-138/55-84 mm Hg] 138/ 76mm Hg (05/30/24 12:11 PM) Mode of Delivery (Oxygen) Room air (05/30/24 12:11 PM) Blood pressure sites Arm, left (05/30/24 12:11 PM) Social History Social History Type Response Smoking Status Former smoker; Other : quit 1988; entered on: 02/14/15 Sex Note * Sofía Celeste: PERFORM Event Display: Patient Education/Instruction Authored Date: [id number] Ambulatory Adult Visit Summary [facility] [address] [place] [address] Name: EMMA VELASQUEZ : 1950?? Visit: 05/30/2024 12:09?? Ambulatory Visit Instructions ?? Your Care Team Primary Care Provider Oscar MCMANUS, Alba? This Visit Provider Oscar MCMANUS , Alba Your Diagnosis Vaginal atrophy Memory loss Lumbar degenerative disc disease buttermaker continuous churn prescription opiate use Vitals Signs Pulse Rate: 66 bpm Height: 158 cm Systolic Blood Pressure: 138 mm Hg Weight: 73.2 kg Diastolic Blood Pressure: 76 mm Hg Body Mass Index:??29.32 kg/m2??High Oxygen Saturation: 96 % Body surface area: 1.79 What to do next Scheduled Follow-Up Appointments Thursday 7:50 AM EDT ?? With: Yusef MCMANUS, Nikolai [facility] [address] [place] [address]- Status: Pending Thursday 10:30 AM EDT ?? Where: [facility] [address], [address] [place] [address]- Status: Pending Thursday 11:00 AM EDT ?? With: Risa Benítez Where: [facility] Status: Pending Thursday 10:00 AM EST ?? With: Zeferino GUSTAFSON, Betty Marin Where: [facility] [address] [facility] [address] [place] [address]- Status: Pending Future Orders Cholesterol Total - Once, *Est. 12/07/23, Future Order?? Direct LDL - Once, *Est. 12/07/23, Future Order?? HDL Cholesterol - Once, *Est. 12/07/23, Future Order?? ALT - Once, *Est. 12/07/23, Order for Today?? Complete Urinalysis - Routine, Once, 05/06/24 15:04:00 EDT, Order for Today, [facility], Urine?? Urine Culture - Routine, Urine Clean Catch, Once, 05/06/24 15:05:00 EDT, Order for Today, [facility], Urine Clean Catch?? Vitamin B12 Level - Routine, Once, 05/30/24 12:26:00 EDT, Order for Today, [facility], Blood?? Methylmalonic Acid - Routine, Once, 05/30/24 12:26:00 EDT, Order for Today, [facility], Blood?? Folate Level - Routine, Once, 05/30/24 12:26:00 EDT, Order for Today, [facility], Blood?? Iron + Iron Binding Capacity - Routine, Once, 05/30/24 12:26:00 EDT, Order for Today, [facility], Blood?? Ferritin - Routine, Once, 05/30/24 12:26:00 EDT, Order for Today, [facility], Blood?? CBC - Routine, Once, 05/30/24 12:26:00 EDT, Order for Today, [facility], Blood?? TSH Rfx on Abnormal to Free T4 - Routine, Once, 05/30/24 12:26:00 EDT, Order for Today, [facility], Blood?? Basic Metabolic Panel - Routine, Once, 05/30/24 12:26:00 EDT, Order for Today, [facility], Blood?? Medications The list below reflects the information in our records and provided by you today along with any changes made during this visit. Please continue your medications until treatment is completed or stopped by your provider. If this is different from the information you have or there are other questions,please contact the prescribing provider. What How Much When Why Instructions Changed Polyethylene Glycol 3350 (ClearLax oral powder for reconstitution) 1 scoop Oral Daily as needed for Constipation dissolve in water or juice ?? Pickup at [facility]/pharmacy #[id number] Unchanged Albuterol (Albuterol (Eqv-Ventolin HFA) 90 mcg/ inh inhalation aerosol) See instructions INHALE 2 PUFFS BY MOUTH EVERY 4 HOURS NEEDED FOR WHEEZING OR SHORTNESS OF BREATH ?? Unchanged Durable Medical Equipment (Home Blood Pressure Monitor) See instructions Blood pressure elevated without history of HTN Check BP as directed ?? Unchanged EPINEPHrine (EpiPen 2-Minor 0.3 mg injectable kit) See instructions Intramuscular Once ?? Unchanged Estradiol Topical (Estrace Vaginal Cream 0.1 mg/ g) See instructions 1 gram Vaginally ??at bedtime twice per week ?? Unchanged Ibuprofen (ibuprofen 600 mg oral tablet) 1 tab(s) Oral 3 times a day Unchanged mirabegron (Myrbetriq 25 mg oral tablet, extended release) 1 tab(s) Oral Daily Unchanged nalOXONE (Narcan 4 mg/ 0.1 mL nasal spray) 4 Milligram Nares, Both Once may repeat every 2 to 3 minutes until patient responds ?? Unchanged Omeprazole (omeprazole 20 mg oral enteric coated capsule) 1 capsule Oral Daily Unchanged Oxycodone (oxyCODONE 10 mg oral tablet) See instructions Low back pain 0.5-1 tablet By Mouth Every 4 hours, max 4 tabs in 24 hours ?? Unchanged Oxycodone (OxyCONTIN 10 mg oral tablet, extended release) 1 tab(s) Oral Every 12 hours Low back pain OA (osteoarthritis) of knee CALENDAR ?? Unchanged Simvastatin (simvastatin 20 mg oral tablet) 1 tab(s) Oral Daily at Bedtime Dyslipidemia Unchanged Trazodone (traZODone 100 mg oral tablet) 1 tab(s) Oral Daily at Bedtime as needed for NEEDED FOR SLEEP Pharmacy Information [facility]/pharmacy #[id number]: [address], [place] [id number] [phone] ?? What How Much When Comments Stop Taking Diazepam (diazepam 5 mg oral tablet) See instructions 1 tab PO 1 hr. prior to procedure. ??May Repeat x 1 on arrival if needed for Procedural anxiety. ?? Test Performed Below is a partial list of the tests performed during your Visit. You may have had other tests and procedures not included in this list. Please discuss all test results with your provider. Basic Metabolic Panel?-- Results Pending -- CBC?-- Results Pending -- Ferritin?-- Results Pending -- Folate Level?-- Results Pending -- Iron + Iron Binding Capacity?-- Results Pending -- Methylmalonic Acid?-- Results Pending -- TSH Rfx on Abnormal to Free T4?-- Results Pending -- Vitamin B12 Level?-- Results Pending -- Medications and Immunizations Administered Medications Given During Visit No medications given during this visit.?? Allergies (NKA means No Known Allergies) Avocado Bactrim Bananas Cipro??(hives) Kiwi Latex Macrobid??(Hives) Other Environmental Allergy Seafood iodinated radiocontrast dyes iodine sulfa drugs Common Emergency Awareness Tips IS IT A STROKE? Act FAST and Check for these signs: FACE Does the face look uneven? ARM Does one arm drift down? SPEECH Does their speech sound strange? TIME Call at any sign of stroke ?? Heart Attack Signs Chest discomfort: Most heart attacks involve discomfort in the center of the chest and lasts more than a few minutes, or goes away and comes back. It can feel like uncomfortable pressure, squeezing, fullness or pain. Discomfort in upper body: Symptoms can include pain or discomfort in one or both arms, back, neck, jaw or stomach. Shortness of breath: With or without discomfort. Other signs: Breaking out in a cold sweat, nausea, or lightheaded. Remember, MINUTES DO MATTER. If you experience any of these heart attack warning signs, call to get immediate medical attention! ?? Smoking can increase your chances of developing chronic health problems and can cause harmful effects to other family members in your house. If you smoke, you are strongly encouraged to quit. Please call [facility] whodoyou Link at [phone] or [phone] ([phone]) or log in to [email or web address] for referrals to smoking cessation programs. ?? The National Suicide Prevention Hotline is available 04/05 if you or someone you know needs to find a reason to keep living. By calling 7-807-397-Azumio (0389) you'll be connected to a skilled, trained counselor at a crisis center in your area. [facility] wh[facility]oyou Portal You can view and manage your care through the patient portal or by using a health care joseph of your choosing. [employer] is a website that allows you to securely view your medical information including your hospital discharge summary, office visit summaries, medications and follow-up visits. You can also request appointments, renew medications, and request access to your medical information using a health care joseph of your choosing, or just ask a question. You can enroll at [email or web address] or register during your next office visit. [facility], in keeping with [facility] guidance, no longer requires face masks for staff, patientsor visitors in most situations. Similiar to time spent indoors at other locations, there is the chance that you were exposed to repiratory viruses during your time with us (such as flu or COVID-19). If you develop symptoms concerning for a viral respiratory infection, please seek testing (and treatment if indicated) from your medical provider or home test kit. ?? Disclaimer: The information provided is of a general nature and is intended to be used in conjunction with the recommendations and advice of your health care practitioner. Every effort has been made to ensure that the information provided is accurate and complete at the time it is provided to you however, as your needs change, or, as new information becomes available, different or additional instructions may be required. ?? If you have questions, please consult with your primary care provider or pharmacist, as appropriate. This information is not intended to serve as substitution for assessment and evaluation by a qualified health care provider. If you do not have a primary care provider, you may find a [facility] provider by calling [facility] at [phone]. Patient Care team information Care Team Personnel Name: Kaykay Craft [place] Position: [facility] Office Staff Member Role: Primary Care Nurse Name: Liudmila Andujar Position: [facility] Pillowcase Folder Member Role: Silk Blocker Name: Alba Moore MD Position: [facility] Physician - Primary Care Member Role: PCP Address: Address: [address] [place] [id number]- Name: Traci Adler RN Position: [facility] RN Member Role: Primary Care Nurse Care Team Related Persons Name: ROGERS VELASQUEZ Address: home [address] [place] [address] Name: OMI VELSAQUEZ Address: home [address] [place] [address] Name: ANGELA VELASQUEZ Address: home [address] [place] [address]
--- OUTSIDE RECORDS SUMMARY | 2024-07-01 17:08 | XMS_ITS | Continuity of Care Document ---
Author Organization [facility] Address [address], [address] [place] [address]- Care Team Providers Care Plant Safety Leader Name Role Phone Oscar MCMANUS, Alba Primary Care Physician Encounter [facility] [place] Date(s): 04/20/24 - 05/20/24 [facility] [address], [address] [place], [place] [address] Attending Physician: Admtr, Ar8 Allergies, Adverse Reactions, Alerts Substance Reaction Severity Status sulfa drugs Active Cipro hives Active Bactrim Active Latex Active Seafood Active iodine Active Kiwi Active iodinated radiocontrast dyes Active Macrobid Hives Active Other Environmental Allergy Active Bananas Active [...] (oldterm) 9/30/20 Recorde d pneumococcal 23-valent vaccine 4 08/05/19 Given pneumococcal 23-valent vaccine 5 11/07/13 Given pneumococcal 13-valent vaccine 05/19/18 Given Diphth-Tetanus Toxoids Adsorbed(oldterm) 08/22/08 Given 1Result Comment: [facility] [id number] 2[facility] 3Admin Note: sarah 4Rradha Comment: [phone] 5Admin Note: [facility] Medications Albuterol (Eqv-Ventolin HFA) 90 mcg/inh inhalation aerosol See Instructions, INHALE 2 PUFFS BY MOUTH EVERY 4 HOURS NEEDED FOR WHEEZING OR SHORTNESS OF BREATH, # 18 each, 5 Refills, Maintenance, 02/22/24 17:04:00 EDT, [id number], 30, INHALE 2 PUFFS BYMOUTH EVERY 4 HOURS NEEDED FOR WHEEZING OR SHORT... Start Date: 02/22/24 Status: Ordered ClearLax oral powder for reconstitution 1 scoop, By Mouth, Daily, PRN Constipation, dissolve in water or juice, # 527 Gm, 5 Refills, Maintenance, 11/25/19 12:24:00 EST, [facility] #[id number], 1 scoop By Mouth Daily,PRN:Constipation,Instr:dissolve in water [...] 1 Refills, Soft Stop, 07/08/21 14:29:00 EDT, [facility][id number], 158, cm, 06/28/21 11:31:00 EDT, Height, 65.7, kg, 06/16/21 13:22:00 EDT, Dry Weight Start Date: 07/08/21 Status: Ordered Estrace Vaginal Cream 0.1 mg/g 1 gram, Vaginally, Daily at bedtime, Apply daily at bedtime for 2 weeks and then 2 times per week, # 42 Gm, 3 Refills, Maintenance, 03/21/24 9:38:00 EDT, [facility]/pharmacy #[id number], 158, cm, 02/18/24 10:21:00 EDT, [...] 03/21/24 9:38:00 EDT, Route to Pharmacy Electronically, [facility]/pharmacy #[id number], 158, cm, 02/18/24 10:21:00 EDT, Height, 63.5, kg, 07/09/23 13:09:00 EDT, Dry Weight Start Date: 03/21/24 Status: Ordered Myrbetriq 25 mg oral tablet, extended release 1 tablet = 25 mg, By Mouth, Daily, # 30 tablet, 5 Refills, Maintenance, 03/21/24 9:38:00 EDT, [facility]/pharmacy #[id number], Partial fill upon patient request if the prescription is for a schedule II opioid drug., 158, cm, 02/18/24 10:21:00 EDT, Height, 63.5, kg... Start Date: 03/21/24 Status: Ordered Narcan 4 mg/0.1 mL nasal spray = 4 mg, Nares, Both, Once, may repeat every 2 to 3 minutes until patient responds, # 1 each, 0 Refills, Soft Stop, 11/25/22 9:21:00 EST, [facility] #[id number], Partial fill upon patient requestif the prescription is for a schedule II opioid alva... Start Date: 11/25/22 Status: Ordered omeprazole 20 mg oral enteric coated capsule 1 capsule, By Mouth, Daily, # 90 capsule, 1 Refills, Maintenance, 05/16/24 10:34:00 EDT, [facility], 158, cm, 05/08/24 10:56:00 EDT, Height, 63.5, kg, 07/09/23 13:09:00 EDT, Dry Weight Start Date: 05/16/24 Status: Ordered oxyCODONE 10 mg oral tablet See Instructions, 0.5-1 tablet By Mouth Every 4 hours, max 4 tabs in 24 hours, # 112 tablet, 0 Refills, Maintenance, 05/17/24 10:12:00 EDT, [facility]/pharmacy #[id number], 158, cm, 05/08/24 10:56:00 EDT, Height,63.5, kg, 07/09/23 13:09:00 EDT, Dry Weight, 4, tablet Start Date: 05/17/24 Status: Ordered OxyCONTIN 10 mg oral tablet, extended release 10 mg, 1, tablet, By Mouth, Every 12 hours, CALENDAR, # 56 tablet, Refills 0, Tot. Refills 0, Maintenance, 05/17/24 10:12:00 EDT, Route to Pharmacy Electronically, [facility]/pharmacy #[id number], Partial fill upon patient request; CALENDAR, 158, cm, 05/08/24 10:5... Start Date: 05/17/24 Status: Ordered simvastatin 20 mg oral tablet 20 mg, 1, tablet, By Mouth, Daily at bedtime, # 90 tablet, Refills 1, Tot. Refills 1, Maintenance, 02/22/24 13:47:00 EDT, Route to Pharmacy Electronically, [facility]/pharmacy #[id number], Partial fill upon patient request if the prescription is for a schedule II... 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 Active Raynaud's syndrome Confirmed Active Restless legs syndrome Confirmed 2003 Active Solitary pulmonary nodule Confirmed Active Social History Social History Type Response Smoking Status Former smoker; Other : quit 1988; entered on: 02/14/15 Sex Radiology * Tasneem Mendes: PERFORM Event Display: Radiology Results Scanned Authored Date: [id number] Note * Aziza Henderson: PERFORM, SIGN, VERIFY Event Display: Patient Education/Instruction Authored Date: [id number] [facility] Clinical Summary Person Information Name EMMA VELASQUEZ Age 60 Years 1950 12:00 AM PCP Lenard MCMANUS, Kwaku Robb PCP Reason for Visit: Allergy Info: Latex; Bactrim; Cipro; iodinated radiocontrast dyes; sulfonamides Vital Signs Height Weight BMI Blood Pressure / Temperature Pulse Rate Respiratory Rate 02 Sat Mode of Delivery / Medication Information Albuterol (ProAir HFA 90 mcg/inh inhalation aerosol with adapter) 2 puffs, Inhalation, every 4 hours, 1 each, As Needed, for wheezing, Refills: 0 Calcium And Vitamin D Combination (calcium and vitamin D combination 500 mg-200 iu oral tablet) , 1tabs 3 x a day w/ meals, Refills: 0 Clonazepam (clonazepam 0.5 mg oral tablet) , See Instructions, 1-2 tablets at bedtime p.r.n. restless legs, 60 tablet, Refills: 1 DiphenhydrAMINE (diphenhydramine 25 mg oral tablet) , See Instructions, 1-2 tablets 4 times a day, 120 tablet, As Needed, hives, Refills: 1 Ergocalciferol (Vitamin D Capsule) , 1000 I.U., Oral Fluocinonide Topical (fluocinonide topical 0.05% solution) 1 application, Topically, 3 times a day,60 mL, Refills: 1 Ibuprofen (ibuprofen 600 mg oral tablet) 1 tablet, Oral, 3 times a day, 90 Doses, Refills: 3 Lorazepam (lorazepam 1 mg oral tablet) 1 tablet, Oral, Daily at Bedtime, max 10 tabs/month, 10 tablet, As Needed, Sleep, Refills: 1 Omeprazole (omeprazole 20 mg oral enteric coated capsule) 1 capsule, Oral, Tomorrow, 30 capsule, Refills: 5 Oxycodone (OxyContin 10 mg oral tablet, extended release) 1 tablet, Oral, every 12 hours, 56 tablet, Refills: 0 Oxycodone (oxycodone 5 mg oral tablet) , See Instructions, 1-2 tablet By Mouth Every 4 hours, max 8tabs in 24 hours, 224 tablet, As Needed, as needed for pain, Refills: 0 Sertraline (sertraline 100 mg oral tablet) 1 tablet, Oral, Tomorrow, 30 tablet, Refills: 5 Triamcinolone Topical (triamcinolone topical 0.1% cream) 1 application, Topically, 3 times a day, 30 Gm, Refills: 1 Problem List Date Problem 04/18/09 Osteopenia 10/20/08 Chronic back pain 11/10/05 Restless legs syndrome 11/10/05 Dyslipidemia 11/10/05 Depression 11/10/05 Fibromyalgia 11/10/05 Asthma 11/10/05 OA - Osteoarthritis of knee 11/10/05 Raynaud's syndrome 03/16/06 Mastalgia If the following labs have been performed in the last year, the most recent result is displayed below. Diagnostic Results Lab Result Value Date Lead Hemoglobin A1C LDL HDL Triglycerides Total Cholesterol Disclaimer: The information provided is of a [...] different or additional instructions may be required. If you have questions, please consult with your primary care provider or pharmacist, as appropriate. This information is not intended to serve as substitution for assessment and evaluation by a qualified health care provider. If you do not have a primary care provider, you may find a [facility] provider by calling [facility] at [phone]. Patient Education Information Follow-up Details: Patient Education Material: Patient Care team information Care Team Personnel Name: Kaykay Craft [place] Position: [facility] Staff Member Role: Primary Care Nurse Name: Liudmila Andujar Position: [facility] Dental Service Technician Member Role: Button Tufter Name: Alba Moore MD Position: [facility] Physician - Primary Care Member Role: PCP Address: Address: [address] [place] [address] Name: Traci Adler RN Position: [facility] RN Member Role: Primary Care Nurse Care Team Related Persons Name: ROGERS VELASQUEZ Address: [address] [place] [address] Name: OIM VELASQUEZ Address: home [address] [place] [address] Name: ANGELA VELASQUEZ Address: home [address] [place] [address]
--- OUTSIDE RECORDS SUMMARY | 2024-07-01 17:08 | XMS_ITS | Continuity of Care Document ---
Author Organization [facility] Address [address] [place] [address]- Care Team Providers Care It Technical Architect Name Role Phone Oscar MCMANUS, Alba Primary Care Physician En[place] [facility] [place] Date(s): 04/28/24 - 05/28/24 [facility] [address] [place] [address]- Allergies, Adverse Reactions, Alerts Substance Reaction Severity [...] influenza virus vaccine, inactivated 3 07/11/11 Gi rainna SARS-CoV-2 (COVID-19) mRNA-1273 vaccine 02/01/21 R ecorded SARS-CoV-2 (COVID-19) mRNA-1273 vaccine 01/04/21 R ecorded Influenza Virus Vaccine (oldterm) 07/11/20 Recorde d pneumococcal 23-valent vaccine 4 08/05/19 Given pneumococcal 23-valent vaccine 5 11/07/13 Given pneumococcal 13-valent vaccine 8/8/18 Given Diphth-Tetanus Toxoids Adsorbed(oldterm) 08/22/08 Given 1Result Comment: [facility] [id number] 2Admin Note: [facility] 3Admin Note: sarah 4Result Comment: [id number] 5Admin Note: [facility] Medications Albuterol (Eqv-Ventolin HFA) 90 mcg/inh inhalation aerosol See Instructions, INHALE 2 PUFFS BY MOUTH EVERY 4 HOURS NEEDED FOR WHEEZING OR SHORTNESS OF BREATH, # 18 each, 5 Refills, Maintenance, 02/22/24 17:04:00 EDT, [facility] 00636, 30, INHALE 2 PUFFS BYMOUTH EVERY 4 HOURS NEEDED FOR WHEEZING OR SHORT... Start Date: 02/22/24 Status: Ordered ClearLax oral powder for reconstitution 1 scoop, By Mouth, Daily, PRN Constipation, dissolve in water or juice, # 527 Gm, 5 Refills, Maintenance, 11/25/19 12:24:00 EST, [facility] #[id number], 1 scoop By Mouth Daily,PRN:Constipation,Instr:dissolve in water [...] 1 Refills, Soft Stop, 07/08/21 14:29:00 EDT, [facility]: [facility] #[id number], 158, cm, 06/28/21 11:31:00 EDT, Height, 65.7, kg, 06/16/21 13:22:00 EDT, Dry Weight Start Date: 07/08/21 Status: Ordered Estrace Vaginal Cream 0.1 mg/g See Instructions, 1 gram Vaginally at bedtime twice per week, # 42 Gm, 4 Refills, Maintenance, 05/24/24 11:21:00 EDT, [facility]/pharmacy #[id number], Partial fill upon patient request if [...] 03/21/24 9:38:00 EDT, Route to Pharmacy Electronically, [facility]/pharmacy #[id number], 158, cm, 02/18/24 10:21:00 EDT, Height, 63.5, kg, 07/09/23 13:09:00 EDT, Dry Weight Start Date: 03/21/24 Status: Ordered Myrbetriq 25 mg oral tablet, extended release 1 tablet = 25 mg, By Mouth, Daily, # 30 tablet, 5 Refills, Maintenance, 03/21/24 9:38:00 EDT, [facility]/pharmacy #[id number], Partial fill upon patient request if the prescription is for a schedule II opioid drug., 158, cm, 02/18/24 10:21:00 EDT, Height, 63.5, kg... Start Date: 03/21/24 Status: Ordered Narcan 4 mg/0.1 mL nasal spray = 4 mg, Nares, Both, Once, may repeat every 2 to 3 minutes until patient responds, # 1 each, 0 Refills, Soft Stop, 11/25/22 9:21:00 EST, [facility] #[id number], Partial fill upon patient requestif the prescription is for a schedule II opioid alva... Start Date: 11/25/22 Status: Ordered omeprazole 20 mg oral enteric coated capsule 1 capsule, By Mouth, Daily, # 90 capsule, 1 Refills, Maintenance, 05/16/24 10:34:00 EDT, [facility] [id number], 158, cm, 05/08/24 10:56:00 EDT, Height, 63.5, kg, 07/09/23 13:09:00 EDT, Dry Weight Start Date: 05/16/24 Status: Ordered oxyCODONE 10 mg oral tablet See Instructions, 0.5-1 tablet By Mouth Every 4 hours, max 4 tabs in 24 hours, # 112 tablet, 0 Refills, Maintenance, 05/17/24 10:12:00 EDT, [facility]/pharmacy #[id number], 158, cm, 05/08/24 10:56:00 EDT, Height,63.5, kg, 07/09/23 13:09:00 EDT, Dry Weight, 4, tablet Start Date: 05/17/24 Status: Ordered OxyCONTIN 10 mg oral tablet, extended release 10 mg, 1, tablet, By Mouth, Every 12 hours, CALENDAR, # 56 tablet, Refills 0, Tot. Refills 0, Maintenance, 05/17/24 10:12:00 EDT, Route to Pharmacy Electronically, [facility]/pharmacy #[id number], Partial fill upon patient request; CALENDAR, 158, cm, 05/08/24 10:5... Start Date: 05/17/24 Status: Ordered simvastatin 20 mg oral tablet 20 mg, 1, tablet, By Mouth, Daily at bedtime, # 90 tablet, Refills 1, Tot. Refills 1, Maintenance, 02/22/24 13:47:00 EDT, Route to Pharmacy Electronically, [facility]/pharmacy #[id number], Partial fill upon patient request if the prescription is for a schedule II... 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 Confirmed Active Raynaud's syndrome Confirmed Active Restless legs syndrome Confirmed 2003 Active Solitary pulmonary nodule Confirmed Active Social History Social History Type Response Smoking Status Former smoker; Other : quit 1988; entered on: 02/14/15 Sex Patient Care team information Care Team Personnel Name: Kaykay Craft [place] Position: [facility] Staff Member Role: Primary Care Nurse Name: Liudmila Andujar Position: [facility] Senior It Specialist Member Role: Liquor Store Manager Name: Alba Moore MD Position: [facility] Physician - Primary Care Member Role: PCP Address: Address: [address] [place] [address] 3[address] [place] [address]- Name: Traci Adler RN Position: [facility] RN Member Role: Primary Care Nurse Care Team Related Persons Name: ROGERS VELASQUEZ Address: [address] [place] [address] Name: OMI VELASQUEZ Address: home [address] [place] [address] Name: ANGELA VELASQUEZ Address: home [address] [place] [address]
--- OUTSIDE RECORDS SUMMARY | 2024-07-01 17:08 | XMS_ITS | Continuity of Care Document ---
Author Organization [facility] Address [address] [place] [address]- Care Team Providers Care Automatic Print Developer Name Role Phone Oscar MCMANUS, Alba Primary Care Physician Encounter [facility] [place] Date(s): 12/17/23 - 01/16/24 [facility] [address] [place] [phone]- Allergies, Adverse Reactions, Alerts Substance Reaction Severity Status Bactrim Active Latex Active Kiwi Active Avocado Active sulfa drugs Active iodinated radiocontrast dyes Active Cipro hives Active Seafood Active Other Environmental Allergy Active [...] Toxoids Adsorbed(oldterm) 08/22/08 Given 1Result Comment: [facility] [id number] 2Admin Note: [facility] 3Admin Note: sarah 4Result Comment: [id number] 5Admin Note: [facility] Medications ClearLax oral powder for reconstitution 1 scoop, By Mouth, Daily, PRN Constipation, dissolve in water or juice, # 527 Gm, 5 Refills, Maintenance, 11/25/19 12:24:00 EST, [facility] #[id number], 1 scoop By Mouth Daily,PRN:Constipation,Instr:dissolve in water or juice, 158, cm, 09/30/19 1... Start Date: 11/25/19 Status: Ordered EpiPen 2-Minor 0.3 mg injectable kit See Instructions, Intramuscular Once, # 1 each, 1 Refills, Soft Stop, 07/08/21 14:29:00 EDT, [facility] #[id number], 158, cm, 06/28/21 11:31:00 EDT, Height, 65.7, kg, 06/16/21 13:22:00 EDT, Dry Weight Start Date: 07/08/21 Status: Ordered Estrace Vaginal Cream 0.1 mg/g 1 gram, Vaginally, Daily at bedtime, Apply daily at bedtime for 2 weeks and then 2 times per week, # 42 Gm, 3 Refills, Maintenance, 07/15/23 15:07:00 EDT, [facility] #04024, 158, cm, 07/15/23 14:57:00 EDT, Height, 63.5, [...] 05/04/23 14:23:00 EDT, Route to Pharmacy Electronically, [facility] #[id number], 158, cm, 04/01/23 7:42:00 EDT, Height, 64, kg, 07/10/21 9:37:00 EDT, Dry Weight Start Date: 05/04/23 Status: Ordered Myrbetriq 25 mg oral tablet, extended release 1 tablet = 25 mg, By Mouth, Daily, # 30 tablet, 5 Refills, Maintenance, 07/15/23 15:07:00 EDT, [facility] #[id number], Partial fill upon patient request if the prescription is for a schedule II opioid drug., 158, cm, 07/15/23 14:57:00 EDT, Height... Start Date: 07/15/23 Status: Ordered Narcan 4 mg/0.1 mL nasal spray = 4 mg, Nares, Both, Once, may repeat every 2 to 3 minutes until patient responds, # 1 each, 0 Refills, Soft Stop, 11/25/22 9:21:00 EST, [facility] #[id number], Partial fill upon patient requestif the prescription [...] hours, # 112 tablet, 0 Refills, Maintenance, 01/13/24 15:36:00 EDT, [facility], CALENDAR, 158, cm, 12/07/23 12:03:00 EST, Height, 63.5, kg, 07/09/23 13:09:... Start Date: 01/13/24 Status: Ordered OxyCONTIN 10 mg oral tablet, extended release 10 mg, 1, tablet, By Mouth, Every 12 hours, TO BE FILLED 01/18/24 CALENDAR, # 56 tablet, Refills 0, Tot. Refills 0, Maintenance, 01/13/24 15:36:00 EDT, Route to Pharmacy Electronically, [facility], Partial fill upon patient request; [facility]... Start Date: 01/13/24 Status: Ordered simvastatin 20 mg oral tablet 20 mg, 1, tablet, By Mouth, Daily at bedtime, # 90 tablet, Refills 1, Tot. Refills 1, Maintenance, 12/07/23 13:01:00 EST, Route to Pharmacy Electronically, [facility]/pharmacy #[id number], Partial fill upon patient request if the prescription is for a schedule II... Start Date: 12/07/23 Status: Ordered traZODone 100 mg oral tablet 100 mg, 1, tablet, By Mouth, Daily at bedtime, PRN, # 30 tablet, Refills 1, Tot. Refills 1, Maintenance, Sleep, 11/09/23 9:29:00 EST, Route to Pharmacy Electronically, [facility] #[id number], Partial fill upon patient request if the prescription... Start Date: 11/09/23 Status: Ordered Ventolin HFA 108 mcg/inh inhalation aerosol with adapter 2 puffs, Inhalation, Every 4 hours, PRN Wheezing/Shortness of Breath, # 1 each, 5 Refills, Maintenance, 05/20/23 12:01:00 EDT, [facility] #[id number], Asthma J45.909;, 158, cm, 04/01/23 7:42:00 EDT, [...] Team Personnel Name: Kaykay Craft [place] Position: [facility] RN Member Role: Primary Care Nurse Name: Oscar MCMANUS, Alba Position: [facility] Physician - Primary Care Member Role: PCP Address: Address: [address] [place] [address] [address] [place] [address]- Name: Vitor MILLER, Traci Position: [facility] Hospital Ultrasound Tech Member Role: Primary Care Nurse Care Team Related Persons Name: ROGERS VELASQUEZ Address: home [address] [place] [address] Name: OMI VELASQUEZ Address: home [address] [place] [address] Name: ANGELA VELASQUEZ Address: home [address] [place] [address]
--- OUTSIDE RECORDS SUMMARY | 2024-07-01 17:08 | XMS_ITS | Continuity of Care Document ---
Author Organization [facility] Adult Address [address] [place] [address]- Care Team Providers Care Preforming Machine Operator Name Role Phone Oscar MCMANUS, Alba Primary Care Physician Encounter [facility] Date(s): 11/26/23 - 12/26/23 [facility] Adult [address] [place] [address]- Allergies, Adverse Reactions, Alerts Substance Reaction Severity Status Bactrim Active Latex Active Kiwi Active sulfa [...] Adsorbed(oldterm) 08/22/08 Given 1Result Comment: [facility] [id number] 2[facility] Note: [facility] 3Admin Note: asrah 4Result Comment: [id number] 5Admin Note: [facility] Medications ClearLax oral powder for reconstitution 1 scoop, By Mouth, Daily, PRN Constipation, dissolve in water or juice, # 527 Gm, 5 Refills, Maintenance, 11/25/19 12:24:00 EST, [facility] #[id number], 1 scoop By Mouth Daily,PRN:Constipation,Instr:dissolve in water or juice, 158, cm, 09/30/19 1... Start Date: 11/25/19 Status: Ordered EpiPen 2-Minor 0.3 mg injectable kit See Instructions, Intramuscular Once, # 1 each, 1 Refills, Soft Stop, 07/08/21 14:29:00 EDT, [facility] #[id number], 158, cm, 06/28/21 11:31:00 EDT, Height, 65.7, kg, 06/16/21 13:22:00 EDT, Dry Weight Start Date: 07/08/21 Status: Ordered Estrace Vaginal Cream 0.1 mg/g 1 gram, Vaginally, Daily at bedtime, Apply daily at bedtime for 2 weeks and then 2 times per week, # 42 Gm, 3 Refills, Maintenance, 07/15/23 15:07:00 EDT, [facility] #[id number], 158, cm, 07/15/23 14:57:00 EDT, Height, 63.5, [...] 05/04/23 14:23:00 EDT, Route to Pharmacy Electronically, [facility] #[id number], 158, cm, 04/01/23 7:42:00 EDT, Height, 64, kg, 07/10/21 9:37:00 EDT, Dry Weight Start Date: 05/04/23 Status: Ordered Myrbetriq 25 mg oral tablet, extended release 1 tablet = 25 mg, By Mouth, Daily, # 30 tablet, 5 Refills, Maintenance, 07/15/23 15:07:00 EDT, [facility] #[id number], Partial fill upon patient request if the prescription is for a schedule II opioid drug., 158, cm, 07/15/23 14:57:00 EDT, Height... Start Date: 07/15/23 Status: Ordered Narcan 4 mg/0.1 mL nasal spray = 4 mg, Nares, Both, Once, may repeat every 2 to 3 minutes until patient responds, # 1 each, 0 Refills, Soft Stop, 11/25/22 9:21:00 EST, [facility] #[id number], Partial fill upon patient requestif the prescription [...] tablet, 0 Refills, Maintenance, 12/17/23 15:39:00 EST, [facility], CALENDAR, 158, cm, 12/07/23 12:03:00 EST, Height, 63.5, kg, 07/09/23 13:09:... Start Date: 12/17/23 Stop Date: 12/19/23 Status: Ordered oxyCODONE 10 mg oral tablet See Instructions, CALENDAR. 0.5-1 tablet By Mouth Every 4 hours, max 4 tabs in 24 hours, # 112 tablet, 0 Refills, Maintenance, 12/16/23 12:47:00 EST, [facility]/pharmacy #[id number], CALENDAR, 158, cm, 12/07/23 12:03:00 EST, Height, 63.5, kg, 07/09/23 13:09:00 EDT... Start Date: 12/16/23 Status: Ordered OxyCONTIN 10 mg oral tablet, extended release 10 mg, 1, tablet, By Mouth, Every 12 hours, CALENDAR, # 56 tablet, Refills 0, Tot. Refills 0, Maintenance, 12/17/23 15:39:00 EST, Route to Pharmacy Electronically, [facility], Partial fill upon patient request; CALENDAR, 158, cm, ... Start Date: 12/17/23 Stop Date: 12/19/23 Status: Ordered OxyCONTIN 10 mg oral tablet, extended release 10 mg, 1, tablet, By Mouth, Every 12 hours, CALENDAR, # 56 tablet, Refills 0, Tot. Refills 0, Maintenance, 12/16/23 12:47:00 EST, Route to Pharmacy Electronically, [facility]/pharmacy #[id number], Partial fill upon patient request; CALENDAR, 158, cm, 12/07/23 12:0... Start Date: 12/16/23 Status: Ordered simvastatin 20 mg oral tablet 20 mg, 1, tablet, By Mouth, Daily at bedtime, # 90 tablet, Refills 1, Tot. Refills 1, Maintenance, 12/07/23 13:01:00 EST, Route to Pharmacy Electronically, [facility]/pharmacy #[id number], Partial fill upon patient request if the prescription is for a schedule II... Start Date: 12/07/23 Status: Ordered traZODone 100 mg oral tablet 100 mg, 1, tablet, By Mouth, Daily at bedtime, PRN, # 30 tablet, Refills 1, Tot. Refills 1, Maintenance, Sleep, 11/09/23 9:29:00 EST, Route to Pharmacy Electronically, [facility] #[id number], Partial fill upon patient request if the prescription... Start Date: 11/09/23 Status: Ordered Ventolin HFA 108 mcg/inh inhalation aerosol with adapter 2 puffs, Inhalation, Every 4 hours, PRN Wheezing/Shortness of Breath, # 1 each, 5 Refills, Maintenance, 05/20/23 12:01:00 EDT, [facility] #[id number], Asthma J45.909;, 158, cm, 04/01/23 7:42:00 EDT, [...] Team Personnel Name: Kaykay Craft [place] Position: [facility] RN Member Role: Primary Care Nurse Name: Alba Moore MD Position: [facility] Physician - Primary Care Member Role: PCP Address: Address: [address] [place] [address] 3rd [place] [address]- Name: Traci Adler RN Position: [facility] Hospital Ultrasonic Tester Member Role: Primary Care Nurse Care Team Related Persons Name: ROGERS VELASQUEZ Address: home [address] [place] [address] Name: OMI VELASQUEZ Address: home [address] [place] [address] Name: ANGELA VELASQUEZ Address: home [address] [place] [address]
--- OUTSIDE RECORDS SUMMARY | 2024-07-01 17:08 | XMS_ITS | Continuity of Care Document ---
Author Organization [facility] Adult Address [address] [place] [address]- Care Team Providers Care Director Of Individual Giving Name Role Phone Alba Moore MD Primary Care Physician Encounter [facility] [place] Date(s): 12/01/23 - 12/08/23 [facility] Adult [address] [place] [address]- Attending Physician: Alba Moore MD Allergies, Adverse [...] Diphth-Tetanus Toxoids Adsorbed(oldterm) 08/22/08 Given 1Result Comment: [facility] [id number] 2Admin Note: [facility] 3Admin Note: sarah 4Result Comment: [id number] 5Admin Note: [facility] Medications ClearLax oral powder for reconstitution 1 scoop, By Mouth, Daily, PRN Constipation, dissolve in water or juice, # 527 Gm, 5 Refills, Maintenance, 11/25/19 12:24:00 EST, [facility] #[id number], 1 scoop By Mouth Daily,PRN:Constipation,Instr:dissolve in water or juice, 158, cm, 09/30/19 1... Start Date: 11/25/19 Status: Ordered EpiPen 2-Minor 0.3 mg injectable kit See Instructions, Intramuscular Once, # 1 each, 1 Refills, Soft Stop, 07/08/21 14:29:00 EDT, [facility] #02365, 158, cm, 06/28/21 11:31:00 EDT, Height, 65.7, kg, 06/16/21 13:22:00 EDT, Dry Weight Start Date: 07/08/21 Status: Ordered Estrace Vaginal Cream 0.1 mg/g 1 gram, Vaginally, Daily at bedtime, Apply daily at bedtime for 2 weeks and then 2 times per week, # 42 Gm, 3 Refills, Maintenance, 07/15/23 15:07:00 EDT, [facility] #88867, 158, cm, 07/15/23 14:57:00 EDT, Height, 63.5, [...] 05/04/23 14:23:00 EDT, Route to Pharmacy Electronically, [facility] #[id number], 158, cm, 04/01/23 7:42:00 EDT, Height, 64, kg, 07/10/21 9:37:00 EDT, Dry Weight Start Date: 05/04/23 Status: Ordered Myrbetriq 25 mg oral tablet, extended release 1 tablet = 25 mg, By Mouth, Daily, # 30 tablet, 5 Refills, Maintenance, 07/15/23 15:07:00 EDT, [facility] #[id number], Partial fill upon patient request if the prescription is for a schedule II opioid drug., 158, cm, 07/15/23 14:57:00 EDT, Height... Start Date: 07/15/23 Status: Ordered Narcan 4 mg/0.1 mL nasal spray = 4 mg, Nares, Both, Once, may repeat every 2 to 3 minutes until patient responds, # 1 each, 0 Refills, Soft Stop, 11/25/22 9:21:00 EST, [facility] #[id number], Partial fill upon patient requestif the prescription [...] tablet, 0 Refills, Maintenance, 11/26/23 12:06:00 EST, [facility] #[id number], CALENDAR, 158, cm, 11/09/23 9:33:00 EST, Height, 63.5, kg, 07/09/23 13:0... Start Date: 11/26/23 Status: Ordered OxyCONTIN 10 mg oral tablet, extended release 10 mg, 1, tablet, By Mouth, Every 12 hours, CALENDAR, # 18 tablet, Refills 0, Tot. Refills 0, Maintenance, 12/07/23 12:50:00 EST, Route to Pharmacy Electronically, [facility]/pharmacy #[id number], Partial fill upon patient request; CALENDAR, 158, cm, 12/07/23 12:0... Start Date: 12/07/23 Stop Date: 12/16/23 Status: Ordered simvastatin 20 mg oral tablet 20 mg, 1, tablet, By Mouth, Daily at bedtime, # 90 tablet, Refills 1, Tot. Refills 1, Maintenance, 12/07/23 13:01:00 EST, Route to Pharmacy Electronically, [facility]/pharmacy #[id number], Partial fill upon patient request if the prescription is for a schedule II... Start Date: 12/07/23 Status: Ordered traZODone 100 mg oral tablet 100 mg, 1, tablet, By Mouth, Daily at bedtime, PRN, # 30 tablet, Refills 1, Tot. Refills 1, Maintenance, Sleep, 11/09/23 9:29:00 EST, Route to Pharmacy Electronically, [facility] #[id number], Partial fill upon patient request if the prescription... Start Date: 11/09/23 Status: Ordered Ventolin HFA 108 mcg/inh inhalation aerosol with adapter 2 puffs, Inhalation, Every 4 hours, PRN Wheezing/Shortness of Breath, # 1 each, 5 Refills, Maintenance, 05/20/23 12:01:00 EDT, [facility] #[id number], Asthma J45.909;, 158, cm, 04/01/23 7:42:00 EDT, [...] syndrome Confirmed Active Restless legs syndrome Confirmed 2004 Active Solitary pulmonary nodule Confirmed Active Vital Signs Most recent to oldest [Reference Range]: 1 Height 158 cm (12/01/23 3:45 PM) Social History Social History Type Response Smoking Status Former smoker; Other : quit 1988; entered on: 02/14/15 Sex Patient Care team information Care Team Personnel Name: Kaykay Craft [place] Position: [facility] RN Member Role: Primary Care Nurse Name: Oscar MCMANUS, Alba Position: [facility] Physician - Primary Care Member Role: PCP Address: Address: [address] [place] [address] [address] [place], [place] [address] Name: Vitor MILLER, Traci Position: [facility] Hospital History Professor Member Role: Primary Care Nurse Care Team Related Persons Name: ROGERS VELASQUEZ Address: [address] [facility] [facility] [address] [address] [place] [address] Name: OMI VELASQUEZ Address: home [address] [place] [address] Name: ANGELA VELASQUEZ Address: home [address] [place] [address]
--- OUTSIDE RECORDS SUMMARY | 2024-07-01 17:08 | XMS_ITS | Continuity of Care Document ---
Author Organization [facility] Adult Address [address] [place] [address]- Care Team Providers Care Power Shovel Operator Helper Name Role Phone Oscar MCMANUS, Alba Primary Care Physician Encounter [facility] Date(s): 05/24/24 - 06/23/24 [facility] Adult [address] [place] [address]- Allergies, Adverse Reactions, Alerts Substance Reaction Severity Status Macrobid Hives Active Latex Active Seafood Active Kiwi Active sulfa drugs Active iodinated [...] Toxoids Adsorbed(oldterm) 08/22/08 Given 1Result Comment: [facility] [id number] 2Result Comment: [facility] [id number] 3Admin Note: [facility] 4Admin Note: sarah 5Result Comment: [id number] 6Admin Note: [facility] Medications Albuterol (Eqv-Ventolin HFA) 90 mcg/inh inhalation aerosol See Instructions, INHALE 2 PUFFS BY MOUTH EVERY 4 HOURS NEEDED FOR WHEEZING OR SHORTNESS OF BREATH, # 18 each, 5 Refills, Maintenance, 02/22/24 17:04:00 EDT, [facility] [id number], 30, INHALE 2 PUFFS BYMOUTH EVERY 4 HOURS NEEDED FOR WHEEZING OR SHORT... Start Date: 02/22/24 Status: Ordered ClearLax oral powder for reconstitution 1 scoop, By Mouth, Daily, PRN Constipation, dissolve in water or juice, # 527 Gm, 5 Refills, Maintenance, 05/30/24 12:21:00 EDT, [facility]/pharmacy #[id number], 1 scoop By Mouth Daily,PRN:Constipation,Instr:dissolve in water or juice, 158, cm, 05/30/24 12:11:00 E... Start Date: 05/30/24 Status: Ordered EpiPen 2-Minor 0.3 mg injectable kit See Instructions, Intramuscular Once, # 1 each, 1 Refills, Soft Stop, 07/08/21 14:29:00 EDT, [facility] #[id number], 158, cm, 06/28/21 11:31:00 EDT, Height, 65.7, kg, 06/16/21 13:22:00 EDT, Dry Weight Start Date: 07/08/21 Status: Ordered Estrace Vaginal Cream 0.1 mg/g See Instructions, 1 gram Vaginally at bedtime twice per week, # 42 Gm, 4 Refills, Maintenance, 05/24/24 11:21:00 EDT, [facility]/pharmacy #[id number], Partial fill upon patient [...] 03/21/24 9:38:00 EDT, Route to Pharmacy Electronically, [facility]/pharmacy #[id number], 158, cm, 02/18/24 10:21:00 EDT, Height, 63.5, kg, 07/09/23 13:09:00 EDT, Dry Weight Start Date: 03/21/24 Status: Ordered Myrbetriq 25 mg oral tablet, extended release 1 tablet = 25 mg, By Mouth, Daily, # 30 tablet, 5 Refills, Maintenance, 03/21/24 9:38:00 EDT, [facility]/pharmacy #[id number], Partial fill upon patient request if the prescription is for a schedule II opioid drug., 158, cm, 02/18/24 10:21:00 EDT, Height, 63.5, kg... Start Date: 03/21/24 Status: Ordered Narcan 4 mg/0.1 mL nasal spray = 4 mg, Nares, Both, Once, may repeat every 2 to 3 minutes until patient responds, # 1 each, 0 Refills, Soft Stop, 11/25/22 9:21:00 EST, [facility] #[id number], Partial fill upon patient requestif the prescription is for a schedule II opioid alva... Start Date: 11/25/22 Status: Ordered omeprazole 20 mg oral enteric coated capsule 1 capsule, By Mouth, Daily, # 90 capsule, 1 Refills, Maintenance, 05/16/24 10:34:00 EDT, [facility] STORE 45605, 158, cm, 05/08/24 10:56:00 EDT, Height, 63.5, kg, 07/09/23 13:09:00 EDT, Dry Weight Start Date: 05/16/24 Status: Ordered oxyCODONE 10 mg oral tablet See Instructions, 0.5-1 tablet By Mouth Every 4 hours, max 4 tabs in 24 hours, # 112 tablet, 0 Refills, Maintenance, 06/14/24 19:24:00 EDT, [facility]/pharmacy #[id number], 158, cm, 06/03/24 7:47:00 EDT, Height, 63.5, kg, 07/09/23 13:09:00 EDT, Dry Weight, 4, tablet Start Date: 06/14/24 Status: Ordered OxyCONTIN 10 mg oral tablet, extended release 10 mg, 1, tablet, By Mouth, Every 12 hours, CALENDAR, # 56 tablet, Refills 0, Tot. Refills 0, Maintenance, 06/14/24 19:24:00 EDT, Route to Pharmacy Electronically, [facility]/pharmacy #[id number], Partial fill upon patient request; CALENDAR, 158, cm, 06/03/24 7:47... Start Date: 06/14/24 Status: Ordered simvastatin 20 mg oral tablet 20 mg, 1, tablet, By Mouth, Daily at bedtime, # 90 tablet, Refills 1, Tot. Refills 1, Maintenance, 02/22/24 13:47:00 EDT, Route to Pharmacy Electronically, [facility]/pharmacy #[id number], Partial fill upon patient request if the prescription is for a schedule II... Start Date: 02/22/24 Status: Ordered traZODone 100 mg oral tablet 1, tablet, By Mouth, Daily at bedtime, PRN, # 90 tablet, Refills 1, Maintenance, NEEDED FOR SLEEP, 05/09/24 15:49:00 EDT, Route to Pharmacy Electronically, 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 prescription opiate use Confirmed Active Raynaud's syndrome Confirmed Active Restless legs syndrome Confirmed 2003 Active Solitary pulmonary nodule Confirmed Active Social History Social History Type Response Smoking Status Former smoker; Other : quit 1988; entered on: 02/14/15 Sex Patient Care team information Care Team Personnel Name: Kaykay Craft [place] Position: [facility] Office Staff Member Role: Primary Care Nurse Name: Liudmila Andujar Position: [facility] Solid Center Winder Member Role: Sheep Sticker Name: Oscar MCMANUS, Alba Position: [facility] Physician - Primary Care Member Role: PCP Address: Address: [address] [place] [address]- Name: Traci Adler RN Position: [facility] RN Member Role: Primary Care Nurse Care Team Related Persons Name: ROGERS VELASQUEZ Address: home [address] [facility] [place] [address] Name: OMI VELASQUEZ Address: home [address] [place] [address] Name: ANGELA VELASQUEZ Address: [address] [place] [address]
--- OUTSIDE RECORDS SUMMARY | 2024-07-01 17:09 | XMS_ITS | Continuity of Care Document ---
Author Organization [facility] Address [address], [address] [place] [address]- Care Team Providers Care Cougar Hunter Name Role Phone Oscar MCMANUS, Alba Primary Care Physician Encounter [facility] Date(s): 05/13/24 - 06/16/24 [facility] [address], [address] [place] [address]- Attending Physician: Zeferino GUSTAFSON, Betty Marin Admitting Physician: Zeferino GUSTAFSON, Betty Marin Referring Physician: Alba Moore MD Allergies, Adverse Reactions, Alerts Substance Reaction Severity Status iodinated radiocontrast dyes Active Macrobid Hives Active Bactrim Active Latex Active Kiwi Active sulfa drugs Active Cipro hives Active Seafood Active Other [...] Toxoids Adsorbed(oldterm) 08/22/08 Given 1Result Comment: [facility] [id number] 2Result Comment: [facility] [id number] 3Admin Note: [facility] 4Admin Note: sarah 5Result Comment: [id number] 6Admin Note: [facility] Medications Albuterol (Eqv-Ventolin HFA) 90 mcg/inh inhalation aerosol See Instructions, INHALE 2 PUFFS BY MOUTH EVERY 4 HOURS NEEDED FOR WHEEZING OR SHORTNESS OF BREATH, # 18 each, 5 Refills, Maintenance, 02/22/24 17:04:00 EDT, [facility] 47[facility], 30, INHALE 2 PUFFS BYMOUTH EVERY 4 HOURS NEEDED FOR WHEEZING OR SHORT... Start Date: 02/22/24 Status: Ordered ClearLax oral powder for reconstitution 1 scoop, By Mouth, Daily, PRN Constipation, dissolve in water or juice, # 527 Gm, 5 Refills, Maintenance, 05/30/24 12:21:00 EDT, [facility]/pharmacy #[id number], 1 scoop By Mouth Daily,PRN:Constipation,Instr:dissolve in water or juice, 158, cm, 05/30/24 12:11:00 E... Start Date: 05/30/24 Status: Ordered EpiPen 2-Minor 0.3 mg injectable kit See Instructions, Intramuscular Once, # 1 each, 1 Refills, Soft Stop, 07/08/21 14:29:00 EDT, [facility] #[id number], 158, cm, 06/28/21 11:31:00 EDT, Height, 65.7, kg, 06/16/21 13:22:00 EDT, Dry Weight Start Date: 07/08/21 Status: Ordered Estrace Vaginal Cream 0.1 mg/g See Instructions, 1 gram Vaginally at bedtime twice per week, # 42 Gm, 4 Refills, Maintenance, 05/24/24 11:21:00 EDT, [facility]/pharmacy #[id number], Partial fill upon patient request [...] 03/21/24 9:38:00 EDT, Route to Pharmacy Electronically, [facility]/pharmacy #[id number], 158, cm, 02/18/24 10:21:00 EDT, Height, 63.5, kg, 07/09/23 13:09:00 EDT, Dry Weight Start Date: 03/21/24 Status: Ordered Myrbetriq 25 mg oral tablet, extended release 1 tablet = 25 mg, By Mouth, Daily, # 30 tablet, 5 Refills, Maintenance, 03/21/24 9:38:00 EDT, [facility]/pharmacy #[id number], Partial fill upon patient request if the prescription is for a schedule II opioid drug., 158, cm, 02/18/24 10:21:00 EDT, Height, 63.5, kg... Start Date: 03/21/24 Status: Ordered Narcan 4 mg/0.1 mL nasal spray = 4 mg, Nares, Both, Once, may repeat every 2 to 3 minutes until patient responds, # 1 each, 0 Refills, Soft Stop, 11/25/22 9:21:00 EST, [facility] #[id number], Partial fill upon patient requestif the prescription is for a schedule II opioid alva... Start Date: 11/25/22 Status: Ordered omeprazole 20 mg oral enteric coated capsule 1 capsule, By Mouth, Daily, # 90 capsule, 1 Refills, Maintenance, 05/16/24 10:34:00 EDT, [facility] STORE 07844, 158, cm, 05/08/24 10:56:00 EDT, Height, 63.5, kg, 07/09/23 13:09:00 EDT, Dry Weight Start Date: 05/16/24 Status: Ordered oxyCODONE 10 mg oral tablet See Instructions, 0.5-1 tablet By Mouth Every 4 hours, max 4 tabs in 24 hours, # 112 tablet, 0 Refills, Maintenance, 06/14/24 19:24:00 EDT, [facility]/pharmacy #[id number], 158, cm, 06/03/24 7:47:00 EDT, Height, 63.5, kg, 07/09/23 13:09:00 EDT, Dry Weight, 4, tablet Start Date: 06/14/24 Status: Ordered OxyCONTIN 10 mg oral tablet, extended release 10 mg, 1, tablet, By Mouth, Every 12 hours, CALENDAR, # 56 tablet, Refills 0, Tot. Refills 0, Maintenance, 06/14/24 19:24:00 EDT, Route to Pharmacy Electronically, [facility]/pharmacy #[id number], Partial fill upon patient request; CALENDAR, 158, cm, 06/03/24 7:47... Start Date: 06/14/24 Status: Ordered simvastatin 20 mg oral tablet 20 mg, 1, tablet, By Mouth, Daily at bedtime, # 90 tablet, Refills 1, Tot. Refills 1, Maintenance, 02/22/24 13:47:00 EDT, Route to Pharmacy Electronically, [facility]/pharmacy #[id number], Partial fill upon patient request if the prescription is for a schedule II... 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 prescription opiate use Confirmed Active Raynaud's syndrome Confirmed Active Restless legs syndrome Confirmed 2003 Active Solitary pulmonary nodule Confirmed Active Social History Social History Type Response Smoking Status Former smoker; Other : quit 1988; entered on: 02/14/15 Sex Patient Care team information Care Team Personnel Name: Kaykay Craft [place] Position: [facility] Office Staff Member Role: Primary Care Nurse Name: Liudmila Andujar Position: [facility] Trout Farmer Member Role: Life Scientists Name: Oscar MCMANUS, Alba Position: [facility] Physician - Primary Care Member Role: PCP Address: Address: [address] [place] [address] [address]rd [place] [address]- Name: Traci Adler RN Position: [facility] SN RN Member Role: Primary Care Nurse Care Team Related Persons Name: ROGERS VELASQUEZ Address: [address] [facility] [facility] [place] [address] Name: OMI VELASQUEZ Address: home [address] [place] [address] Name: ANGELA VELASQUEZ Address: home [address] [place] [address]
--- OUTSIDE RECORDS SUMMARY | 2024-07-01 17:09 | XMS_ITS | Continuity of Care Document ---
Author Organization [facility] Address [address] [place] [address]- Care Team Providers Care Logistics Support Name Role Phone Oscar MCMANUS, Alba Primary Care Physician Encounter [facility] Date(s): 05/08/24 - 05/15/24 [facility] [address] [place] [address]- Attending Physician: Elsa Logan MD Referring Physician: Alba Moore MD Allergies, Adverse Reactions, Alerts Substance Reaction Severity Status Latex Active Seafood Active Kiwi Active Avocado Active sulfa drugs [...] Diphth-Tetanus Toxoids Adsorbed(oldterm) 08/22/08 Given 1Result Comment: [facility] [id number] 2Admin Note: [facility] 3Admin Note: sarah 4Result Comment: [id number] 5Admin Note: [facility] Medications Albuterol (Eqv-Ventolin HFA) 90 mcg/inh inhalation aerosol See Instructions, INHALE 2 PUFFS BY MOUTH EVERY 4 HOURS NEEDED FOR WHEEZING OR SHORTNESS OF BREATH, # 18 each, 5 Refills, Maintenance, 02/22/24 17:04:00 EDT, [facility], 30, INHALE 2 PUFFS BYMOUTH EVERY 4 HOURS NEEDED FOR WHEEZING OR SHORT... Start Date: 02/22/24 Status: Ordered ClearLax oral powder for reconstitution 1 scoop, By Mouth, Daily, PRN Constipation, dissolve in water or juice, # 527 Gm, 5 Refills, Maintenance, 11/25/19 12:24:00 EST, [facility] #[id number], 1 scoop By Mouth Daily,PRN:Constipation,Instr:dissolve in water [...] 1 Refills, Soft Stop, 07/08/21 14:29:00 EDT, [facility] #[id number], 158, cm, 06/28/21 11:31:00 EDT, Height, 65.7, kg, 06/16/21 13:22:00 EDT, Dry Weight Start Date: 07/08/21 Status: Ordered Estrace Vaginal Cream 0.1 mg/g 1 gram, Vaginally, Daily at bedtime, Apply daily at bedtime for 2 weeks and then 2 times per week, # 42 Gm, 3 Refills, Maintenance, 03/21/24 9:38:00 EDT, [facility]/pharmacy #[id number], 158, cm, 02/18/24 10:21:00 [...] 03/21/24 9:38:00 EDT, Route to Pharmacy Electronically, [facility]/pharmacy #[id number], 158, cm, 02/18/24 10:21:00 EDT, Height, 63.5, kg, 07/09/23 13:09:00 EDT, Dry Weight Start Date: 03/21/24 Status: Ordered Myrbetriq 25 mg oral tablet, extended release 1 tablet = 25 mg, By Mouth, Daily, # 30 tablet, 5 Refills, Maintenance, 03/21/24 9:38:00 EDT, [facility]/pharmacy #[id number], Partial fill upon patient request if the prescription is for a schedule II opioid drug., 158, cm, 02/18/24 10:21:00 EDT, Height, 63.5, kg... Start Date: 03/21/24 Status: Ordered Narcan 4 mg/0.1 mL nasal spray = 4 mg, Nares, Both, Once, may repeat every 2 to 3 minutes until patient responds, # 1 each, 0 Refills, Soft Stop, 11/25/22 9:21:00 EST, [facility] #[id number], Partial fill upon patient requestif the prescription is for a schedule II opioid alva... Start Date: 11/25/22 Status: Ordered omeprazole 20 mg oral enteric coated capsule 1 capsule = 20 mg, By Mouth, Daily, # 90 capsule, 0 Refills, Maintenance, 03/21/24 9:36:00 EDT, EC Capsule, [facility]/pharmacy #[id number], 158, cm, 02/18/24 10:21:00 EDT, Height, 63.5, kg, 07/09/23 13:09:00 EDT, Dry Weight Start Date: 03/21/24 Stop Date: 06/19/24 Status: Ordered oxyCODONE 10 mg oral tablet See Instructions, 0.5-1 tablet By Mouth Every 4 hours, max 4 tabs in 24 hours, # 112 tablet, 0 Refills, Maintenance, 04/20/24 17:27:00 EDT, [facility]/pharmacy #[id number], 158, cm, 03/21/24 9:39:00 EDT, Height, 63.5, kg, 07/09/23 13:09:00 EDT, Dry Weight, 4, tablet Start Date: 04/20/24 Status: Ordered OxyCONTIN 10 mg oral tablet, extended release 10 mg, 1, tablet, By Mouth, Every 12 hours, CALENDAR, # 56 tablet, Refills 0, Tot. Refills 0, Maintenance, 04/20/24 17:27:00 EDT, Route to Pharmacy Electronically, [facility]/pharmacy #[id number], Partial fill upon patient request; CALENDAR, 158, cm, 03/21/24 9:39... Start Date: 04/20/24 Status: Ordered simvastatin 20 mg oral tablet 20 mg, 1, tablet, By Mouth, Daily at bedtime, # 90 tablet, Refills 1, Tot. Refills 1, Maintenance, 02/22/24 13:47:00 EDT, Route to Pharmacy Electronically, [facility]/pharmacy #[id number], Partial fill upon patient request if the prescription is for a schedule II... Start Date: 02/22/24 Status: Ordered traZODone 100 mg oral tablet 1, tablet, By Mouth, Daily at bedtime, PRN, # 90 tablet, Refills 1, Maintenance, NEEDED FOR SLEEP, 05/09/24 15:49:00 EDT, Route to Pharmacy Electronically, [id number], 158, cm, 05/08/24 10:56:00 EDT, Height, 63.5, kg, 09/28/23 13:09:00 EDT, ... Start Date: 05/09/24 Status: Ordered Problem List [...] Active Pituitary microadenoma, 4mm Confirmed 2020 Active [facility] prescription opiate use Confirmed Active Raynaud's syndrome Confirmed Active Restless legs syndrome Confirmed 2003 Active Solitary pulmonary nodule Confirmed Active Vital Signs Most recent to oldest [Reference Range]: 1 Height 158 cm (05/08/24 10:56 AM) Oxygen Saturation [94-100 %] 100 % (05/08/24 10:56 AM) Pulse Rate [55-90 bpm] 58 bpm (05/08/24 10:56 AM) Blood Pressure [90-138/55-84 mm Hg] 159/ 87mm Hg *H* (05/08/24 10:56 AM) Temperature [96.8-100.4 DegF] 97.0 DegF (05/08/24 10:56 AM) Mode of Delivery (Oxygen) Room air (05/08/24 10:56 AM) Blood pressure sites Arm, right (05/08/24 10:56 AM) Temperature Route Temporal (05/08/24 10:56 AM) Social History Social History Type Response Smoking Status Former smoker; Other : quit 1988; entered on: 02/14/15 Sex Note * Queta Rosales: PERFORM Event Display: Patient Education/Instruction Authored Date: [id number] Ambulatory Adult Visit Summary [facility] [address] [place] [address] Name: EMMA VELASQUEZ : 1950?? Visit: 05/08/2024 09:50?? Ambulatory Visit Instructions ?? Your Care Team Primary Care Provider Oscar MCMANUS, Alba? This Visit Provider [facility] [place] Your Diagnosis UTI symptoms Vitals Signs Temperature: 97 DegF Height: 158 cm Pulse Rate: 58 bpm ?? Systolic Blood Pressure:??159 mm Hg??High ?? Diastolic Blood Pressure:??87 mm Hg??High ?? Oxygen Saturation: 100 % ?? What to do next Scheduled Follow-Up Appointments Thursday 12:00 PM EDT ?? With: Oscar MCMANUS, Alba Where: [facility] [address] [place] [address]- Status: Pending Thursday 7:50 AM EDT ?? With: Yusef MCMANUS, Nikolai Where: [facility] [address] [place] [address]- Status: Pending Thursday 10:30 AM EDT ?? Where: [facility] Radiology [facility] [employer] [address] [place] [address]- Status: Pending Future Orders Cholesterol Total - [...] Order for Today, [facility], Urine Clean Catch?? Urine Culture - Routine, Once, Collected, 05/08/24 11:12:00 EDT, Within 3 Days, [facility], Urine Clean Catch?? Medications The list below reflects the information in our records and provided by you today along with any changes made during this visit. Please continue your medications until treatment is completed or stopped by your provider. If this is different from the information you have or there are other questions,please contact the prescribing provider. What How Much When Why Instructions New Cephalexin (cephalexin monohydrate 500 mg oral capsule) 1 capsule Oral Every 12 hours Duration: 7 Days Pickup at [facility]/pharmacy #1291 Unchanged Albuterol (Albuterol (Eqv-Ventolin HFA) 90 mcg/ inh inhalation aerosol) See instructions INHALE 2 PUFFS BY MOUTH EVERY 4 HOURS NEEDED FOR WHEEZING OR SHORTNESS OF BREATH ?? Unchanged Diazepam (diazepam 5 mg oral tablet) See instructions 1 tab PO 1 hr. prior to procedure. ??May Repeat x 1 on arrival if needed for Procedural anxiety. ?? Unchanged Durable Medical Equipment (Home Blood Pressure Monitor) See instructions Blood pressure elevated without history of HTN Check BP as directed ?? Unchanged EPINEPHrine (EpiPen 2-Minor 0.3 mg injectable kit) See instructions Intramuscular Once ?? Unchanged Estradiol Topical (Estrace Vaginal Cream 0.1 mg/ g) 1 gram Vaginally Daily at Bedtime Apply daily at bedtime for 2 weeks and then 2 times per week ?? Unchanged Ibuprofen (ibuprofen 600 [...] enteric coated capsule) 1 capsule Oral Daily Epigastric pain Duration: 90 Days Unchanged Oxycodone (oxyCODONE 10 mg oral tablet) See instructions Low back pain 0.5-1 tablet By Mouth Every 4 hours, max 4 tabs in 24 hours ?? Unchanged Oxycodone (OxyCONTIN 10 mg oral tablet, extended release) 1 tab(s) Oral Every 12 hours Low back pain OA (osteoarthritis) of knee CALENDAR ?? Unchanged Polyethylene Glycol 3350 (ClearLax oral powder for reconstitution) 1 scoop Oral Daily as needed for Constipation dissolve in water or juice ?? Unchanged Simvastatin (simvastatin 20 mg oral tablet) 1 tab(s) Oral Daily at Bedtime Dyslipidemia Unchanged Trazodone (traZODone 100 mg oral tablet) 1 tab(s) Oral Daily at Bedtime as needed for Sleep [facility] Information [id number] [address], [place] [id number] [phone] Test Performed Below is a partial list of the tests performed during your Visit. You may have had other tests and procedures not included in this list. Please discuss all test results with your provider. POC UA ([facility] SITE) Urine Culture?-- Results Pending -- Lab Test Results Below is a partial list of the most recent Laboratory test results done during your Visit. You may have had other tests and procedures not included in this list. Please discuss all test results with your provider. Test Name Test Result Date/Time POC UA Glucose NEGATIVE 05/08/2024 11:03 EDT POC UA Bilirubin NEGATIVE 05/08/2024 11:03 EDT POC UA Ketones NEGATIVE 05/08/2024 11:03 EDT POC UA Specific [place] 1.015 05/08/2024 11:03 EDT POC UA Blood 2+ 05/08/2024 11:03 EDT POC UA PH 6.0 1 05/08/2024 11:03 EDT POC UA Protein NEGATIVE 05/08/2024 11:03 EDT POC UA Urobilinogen 0.2 mg/dL 05/08/2024 11:03 EDT POC UA Nitrite NEGATIVE 05/08/2024 11:03 EDT POC UA Leukocytes 1+ 05/08/2024 11:03 EDT POC UA Color YELLOW 05/08/2024 11:03 EDT POC UA Clarity CLEAR 05/08/2024 11:03 EDT Point of Care Results Culture sent to Lab (Automated Urine): Yes (05/08/24) POC Urinalysis Automated-Org/CLIA: [facility] ([place])/[id number] (05/08/24) Medications and Immunizations Administered Medications Given During [...] are strongly encouraged to quit. Please call [facility] [employer]. Link at [phone] or [phone] ([phone]) or log in to [email or web address] for referrals to smoking cessation programs. ?? The National Suicide Prevention Hotline is available 04/05 if you or someone you know needs to find a reason to keep living. By calling 8-539-412-[employer] (3780) you'll be connected to a skilled, trained counselor at a crisis center in your area. [facility] [employer]. Portal You can view and manage your care through the patient portal or by using a health care joseph of your choosing. [email or web address] is a website that allows you to securely view your medical information including your hospital discharge summary, office visit summaries, medications and follow-up visits. You can also request appointments, renew medications, and request access to your medical information using a health care joseph of your choosing, or just ask a question. You can enroll at [email or web address] or register during your next office visit. [facility], in keeping with [facility] guidance, no longer requires face masks [...] primary care provider, you may find a [facility] provider by calling [facility] at [phone]. Patient Care team information Care Team Personnel Name: Kaykay Craft [place] Position: [facility] Office Staff Member Role: Primary Care Nurse Name: Liudmila Andujar [facility] Power Lineworker Member Role: Cylinder Grinder Name: Oscar MCMANUS, Alba Position: [facility] Physician - Primary Care Member Role: PCP Address: Address: [address] [place] [id number]- Name: Traci Adler RN Position: [facility] RN Member Role: Primary Care Nurse Care Team Related Persons Name: ROGERS VELASQUEZ Address: home [address] [place] [address] Name: OMI VELASQUEZ Address: home [address] [place] [address] Name: ANGELA VELASQUEZ Address: home [address] [place] [address]
--- OUTSIDE RECORDS SUMMARY | 2024-07-01 17:09 | XMS_ITS | Continuity of Care Document ---
Author Organization [facility] Address [address] [place] [address]- Care Team Providers Care Standards Engineer Name Role Phone Oscar MCMANUS, Alba Primary Care Physician Encounter [facility] Date(s): 03/31/24 - 04/30/[address] [address] Attending Physician: Silvia Ross Admitting Physician: AdmtrSilvia Referring Physician: Admtr, Ar8 Allergies, Adverse Reactions, Alerts [...] Toxoids Adsorbed(oldterm) 08/22/08 Given 1Result Comment: [facility] [id number] 2Admin Note: [facility] 3Admin Note: sarah 4Result Comment: [id number] 5Admin Note: [facility] Medications Albuterol (Eqv-Ventolin HFA) 90 mcg/inh inhalation aerosol See Instructions, INHALE 2 PUFFS BY MOUTH EVERY 4 HOURS NEEDED FOR WHEEZING OR SHORTNESS OF BREATH, # 18 each, 5 Refills, Maintenance, 02/22/24 17:04:00 EDT, [facility], 30, INHALE 2 PUFFS BYMOUTH EVERY 4 HOURS NEEDED FOR WHEEZING OR SHORT... Start Date: 02/22/24 Status: Ordered ClearLax oral powder for reconstitution 1 scoop, By Mouth, Daily, PRN Constipation, dissolve in water or juice, # 527 Gm, 5 Refills, Maintenance, 11/25/19 12:24:00 EST, [facility] #[id number], 1 scoop By Mouth Daily,PRN:Constipation,Instr:dissolve in water [...] 1 Refills, Soft Stop, 07/08/21 14:29:00 EDT, [facility] #[id number], 158, cm, 06/28/21 11:31:00 EDT, Height, 65.7, kg, 06/16/21 13:22:00 EDT, Dry Weight Start Date: 07/08/21 Status: Ordered Estrace Vaginal Cream 0.1 mg/g 1 gram, Vaginally, Daily at bedtime, Apply daily at bedtime for 2 weeks and then 2 times per week, # 42 Gm, 3 Refills, Maintenance, 03/21/24 9:38:00 EDT, [facility]/pharmacy #[id number], 158, cm, 02/18/24 10:21:00 EDT, [...] 03/21/24 9:38:00 EDT, Route to Pharmacy Electronically, [facility]/pharmacy #[id number], 158, cm, 02/18/24 10:21:00 EDT, Height, 63.5, kg, 07/09/23 13:09:00 EDT, Dry Weight Start Date: 03/21/24 Status: Ordered Myrbetriq 25 mg oral tablet, extended release 1 tablet = 25 mg, By Mouth, Daily, # 30 tablet, 5 Refills, Maintenance, 03/21/24 9:38:00 EDT, [facility]/pharmacy #[id number], Partial fill upon patient request if the prescription is for a schedule II opioid drug., 158, cm, 02/18/24 10:21:00 EDT, Height, 63.5, kg... Start Date: 03/21/24 Status: Ordered Narcan 4 mg/0.1 mL nasal spray = 4 mg, Nares, Both, Once, may repeat every 2 to 3 minutes until patient responds, # 1 each, 0 Refills, Soft Stop, 11/25/22 9:21:00 EST, [facility] #06697, Partial fill upon patient requestif the prescription is for a schedule II opioid alva... Start Date: 11/25/22 Status: Ordered omeprazole 20 mg oral enteric coated capsule 1 capsule = 20 mg, By Mouth, Daily, # 90 capsule, 0 Refills, Maintenance, 03/21/24 9:36:00 EDT, EC Capsule, [facility]/pharmacy #[id number], 158, cm, 02/18/24 10:21:00 EDT, Height, 63.5, kg, 07/09/23 13:09:00 EDT, Dry Weight Start Date: 03/21/24 Stop Date: 06/19/24 Status: Ordered oxyCODONE 10 mg oral tablet See Instructions, 0.5-1 tablet By Mouth Every 4 hours, max 4 tabs in 24 hours, # 112 tablet, 0 Refills, Maintenance, 04/20/24 17:27:00 EDT, [facility]/pharmacy #[id number], 158, cm, 03/21/24 9:39:00 EDT, Height, 63.5, kg, 07/09/23 13:09:00 EDT, Dry Weight, 4, tablet Start Date: 04/20/24 Status: Ordered OxyCONTIN 10 mg oral tablet, extended release 10 mg, 1, tablet, By Mouth, Every 12 hours, CALENDAR, # 56 tablet, Refills 0, Tot. Refills 0, Maintenance, 04/20/24 17:27:00 EDT, Route to Pharmacy Electronically, [facility]/pharmacy #[id number], Partial fill upon patient request; CALENDAR, 158, cm, 03/21/24 9:39... Start Date: 04/20/24 Status: Ordered simvastatin 20 mg oral tablet 20 mg, 1, tablet, By Mouth, Daily at bedtime, # 90 tablet, Refills 1, Tot. Refills 1, Maintenance, 02/22/24 13:47:00 EDT, Route to Pharmacy Electronically, [facility]/pharmacy #[id number], Partial fill upon patient request if the prescription is for a schedule II... Start Date: 02/22/24 Status: Ordered traZODone 100 mg oral tablet 100 mg, 1, tablet, By Mouth, Daily at bedtime, PRN, # 90 tablet, Refills 0, Tot. Refills 0, Maintenance, Sleep, 02/11/24 11:11:00 EDT, Route to Pharmacy Electronically, [facility]/pharmacy #[id number], Partial fill upon patient request [...] Team Personnel Name: Kaykay Craft [place] Position: [facility] Office Staff Member Role: Primary Care Nurse Name: Alba Moore MD Position: [facility] Physician - Primary Care Member Role: PCP Address: Address: [address] [place] [address] [address] [place] [address]- Name: Vitor MILLER, Traci Position: [facility] [employer] Athletic Director Member Role: Primary Care Nurse Care Team Related Persons Name: ROGERS VELASQUEZ Address: home [address] [place] [address] Name: OMI VELASQUEZ Address: home [address] [place] [address] Name: ANGELA VELASQUEZ Address: home [address] [place] [address]
--- OUTSIDE RECORDS SUMMARY | 2024-07-01 17:09 | XMS_ITS | Continuity of Care Document ---
Author Organization [facility] Address [address] [place] [address]- Care Team Providers Care Farm Or Ranch Animal Caretaker Name Role Phone Oscar MCMANUS, Alba Primary Care Physician Encounter [facility] Date(s): 05/13/24 - 06/12/24 [facility] [address] [place] [address]- Allergies, Adverse Reactions, Alerts Substance Reaction Severity [...] Diphth-Tetanus Toxoids Adsorbed(oldterm) 08/22/08 Given 1Result Comment: [facility] [id number] 2Result Comment: [facility] [id number] 3Admin Note: [facility] 4Admin Note: sarah 5Result Comment: [id number] 6Admin Note: [facility] Medications Albuterol (Eqv-Ventolin HFA) 90 mcg/inh inhalation aerosol See Instructions, INHALE 2 PUFFS BY MOUTH EVERY 4 HOURS NEEDED FOR WHEEZING OR SHORTNESS OF BREATH, # 18 each, 5 Refills, Maintenance, 02/22/24 17:04:00 EDT, [facility], 30, INHALE 2 PUFFS BYMOUTH EVERY 4 HOURS NEEDED FOR WHEEZING OR SHORT... Start Date: 02/22/24 Status: Ordered ClearLax oral powder for reconstitution 1 scoop, By Mouth, Daily, PRN Constipation, dissolve in water or juice, # 527 Gm, 5 Refills, Maintenance, 05/30/24 12:21:00 EDT, [facility]/pharmacy #[id number], 1 scoop By Mouth Daily,PRN:Constipation,Instr:dissolve in water or juice, 158, cm, 05/30/24 12:11:00 E... Start Date: 05/30/24 Status: Ordered EpiPen 2-Minor 0.3 mg injectable kit See Instructions, Intramuscular Once, # 1 each, 1 Refills, Soft Stop, 07/08/21 14:29:00 EDT, [facility] #[id number], 158, cm, 06/28/21 11:31:00 EDT, Height, 65.7, kg, 06/16/21 13:22:00 EDT, Dry Weight Start Date: 07/08/21 Status: Ordered Estrace Vaginal Cream 0.1 mg/g See Instructions, 1 gram Vaginally at bedtime twice per week, # 42 Gm, 4 Refills, Maintenance, 05/24/24 11:21:00 EDT, [facility]/pharmacy #[id number], Partial fill upon patient request if [...] 03/21/24 9:38:00 EDT, Route to Pharmacy Electronically, [facility]/pharmacy #[id number], 158, cm, 02/18/24 10:21:00 EDT, Height, 63.5, kg, 07/09/23 13:09:00 EDT, Dry Weight Start Date: 03/21/24 Status: Ordered Myrbetriq 25 mg oral tablet, extended release 1 tablet = 25 mg, By Mouth, Daily, # 30 tablet, 5 Refills, Maintenance, 03/21/24 9:38:00 EDT, [facility]/pharmacy #[id number], Partial fill upon patient request if the prescription is for a schedule II opioid drug., 158, cm, 02/18/24 10:21:00 EDT, Height, 63.5, kg... Start Date: 03/21/24 Status: Ordered Narcan 4 mg/0.1 mL nasal spray = 4 mg, Nares, Both, Once, may repeat every 2 to 3 minutes until patient responds, # 1 each, 0 Refills, Soft Stop, 11/25/22 9:21:00 EST, [id number], Partial fill upon patient requestif the prescription is for a schedule II opioid alva... Start Date: 11/25/22 Status: Ordered omeprazole 20 mg oral enteric coated capsule 1 capsule, By Mouth, Daily, # 90 capsule, 1 Refills, Maintenance, 05/16/24 10:34:00 EDT, [facility] STORE 64096, 158, cm, 05/08/24 10:56:00 EDT, Height, 63.5, kg, 07/09/23 13:09:00 EDT, Dry Weight Start Date: 05/16/24 Status: Ordered oxyCODONE 10 mg oral tablet See Instructions, 0.5-1 tablet By Mouth Every 4 hours, max 4 tabs in 24 hours, # 112 tablet, 0 Refills, Maintenance, 05/17/24 10:12:00 EDT, [facility]/pharmacy #[id number], 158, cm, 05/08/24 10:56:00 EDT, Height,63.5, kg, 07/09/23 13:09:00 EDT, Dry Weight, 4, tablet Start Date: 05/17/24 Status: Ordered OxyCONTIN 10 mg oral tablet, extended release 10 mg, 1, tablet, By Mouth, Every 12 hours, CALENDAR, # 56 tablet, Refills 0, Tot. Refills 0, Maintenance, 05/17/24 10:12:00 EDT, Route to Pharmacy Electronically, [facility]/pharmacy #[id number], Partial fill upon patient request; CALENDAR, 158, cm, 05/08/24 10:5... Start Date: 05/17/24 Status: Ordered simvastatin 20 mg oral tablet 20 mg, 1, tablet, By Mouth, Daily at bedtime, # 90 tablet, Refills 1, Tot. Refills 1, Maintenance, 02/22/24 13:47:00 EDT, Route to Pharmacy Electronically, [facility]/pharmacy #[id number], Partial fill upon patient request if the prescription is for a schedule II... Start Date: 02/22/24 Status: Ordered traZODone 100 mg oral tablet 1, tablet, By Mouth, Daily at bedtime, PRN, # 90 tablet, Refills 1, Maintenance, NEEDED FOR SLEEP, 05/09/24 15:49:00 EDT, Route to Pharmacy Electronically, [facility] STORE 30405, 158, cm, 05/08/24 10:56:00 EDT, Height, 63.5, [...] Active Pituitary microadenoma, 4mm Confirmed 2020 Active [facility] prescription opiate use Confirmed Active Raynaud's syndrome Confirmed Active Restless legs syndrome Confirmed 2003 Active Solitary pulmonary nodule Confirmed Active Social History Social History Type Response Smoking Status Former smoker; Other : quit 1988; entered on: 02/14/15 Sex Patient Care team information Care Team Personnel Name: Kaykay Craft [place] Position: [facility] Office Staff Member Role: Primary Care Nurse Name: Liudmila Andujar Position: [facility] Director Life Sciences Member Role: Standards Analyst Name: Alba Moore MD Position: [facility] Physician - Primary Care Member Role: PCP Address: Address: [address] [place] [address] [address] [place] [address]- Name: Traci Adler RN Position: [facility] RN Member Role: Primary Care Nurse Care Team Related Persons Name: ROGERS VELASQUEZ Address: home [address] [place] [address] Name: OMI VELASQUEZ Address: home [address] [place] [address] Name: ANGELA VELASQUEZ Address: home [address] [place] [address]
--- OUTSIDE RECORDS SUMMARY | 2024-07-01 17:09 | XMS_ITS | Continuity of Care Document ---
Author Organization [facility] Address [address], [address] [place] [address]- Care Team Providers Care Library Services Assistant Name Role Phone Oscar MCMANUS, Alba Primary Care Physician Encounter [facility] Date(s): 09/25/23 - 01/08/24 [facility] [address], [address]th [place] [address]- Attending Physician: Not on Staff, Attending MD Referring Physician: Shahrzad Cee Allergies, Adverse Reactions, Alerts Substance Reaction Severity Status sulfa drugs Active iodinated radiocontrast dyes Active Cipro hives Active Bactrim Active Latex Active Seafood Active Other Environmental Allergy Active iodine Active Bananas Active Kiwi Active Avocado Active Immunizations Given and Recorded [...] Toxoids Adsorbed(oldterm) 08/22/08 Given 1Result Comment: [facility] [id number] 2[facility] 3Admin Note: [email or web address] 4Result Comment: [id number] 5Admin Note: [facility] Medications ClearLax oral powder for reconstitution 1 scoop, By Mouth, Daily, PRN Constipation, dissolve in water or juice, # 527 Gm, 5 Refills, Maintenance, 11/25/19 12:24:00 EST, [facility] #[id number], 1 scoop By Mouth Daily,PRN:Constipation,Instr:dissolve in water or juice, 158, cm, 09/30/19 1... Start Date: 11/25/19 Status: Ordered EpiPen 2-Minor 0.3 mg injectable kit See Instructions, Intramuscular Once, # 1 each, 1 Refills, Soft Stop, 07/08/21 14:29:00 EDT, [facility] #[id number], 158, cm, 06/28/21 11:31:00 EDT, Height, 65.7, kg, 06/16/21 13:22:00 EDT, Dry Weight Start Date: 07/08/21 Status: Ordered Estrace Vaginal Cream 0.1 mg/g 1 gram, Vaginally, Daily at bedtime, Apply daily at bedtime for 2 weeks and then 2 times per week, # 42 Gm, 3 Refills, Maintenance, 07/15/23 15:07:00 EDT, [facility] #[id number], 158, cm, 07/15/23 14:57:00 EDT, Height, 63.5, [...] 05/04/23 14:23:00 EDT, Route to Pharmacy Electronically, [facility] #[id number], 158, cm, 04/01/23 7:42:00 EDT, Height, 64, kg, 07/10/21 9:37:00 EDT, Dry Weight Start Date: 05/04/23 Status: Ordered Myrbetriq 25 mg oral tablet, extended release 1 tablet = 25 mg, By Mouth, Daily, # 30 tablet, 5 Refills, Maintenance, 07/15/23 15:07:00 EDT, [facility] #[id number], Partial fill upon patient request if the prescription is for a schedule II opioid drug., 158, cm, 07/15/23 14:57:00 EDT, Height... Start Date: 07/15/23 Status: Ordered Narcan 4 mg/0.1 mL nasal spray = 4 mg, Nares, Both, Once, may repeat every 2 to 3 minutes until patient responds, # 1 each, 0 Refills, Soft Stop, 11/25/22 9:21:00 EST, [facility] #[id number], Partial fill upon patient requestif the prescription [...] tablet, 0 Refills, Maintenance, 12/17/23 15:39:00 EST, [facility], CALENDAR, 158, cm, 12/07/23 12:03:00 EST, Height, 63.5, kg, 07/09/23 13:09:... Start Date: 12/17/23 Stop Date: 12/19/23 Status: Ordered oxyCODONE 10 mg oral tablet See Instructions, CALENDAR. 0.5-1 tablet By Mouth Every 4 hours, max 4 tabs in 24 hours, # 112 tablet, 0 Refills, Maintenance, 12/16/23 12:47:00 EST, [facility]/pharmacy #[id number], CALENDAR, 158, cm, 12/07/23 12:03:00 EST, Height, 63.5, kg, 07/09/23 13:09:00 EDT... Start Date: 12/16/23 Status: Ordered OxyCONTIN 10 mg oral tablet, extended release 10 mg, 1, tablet, By Mouth, Every 12 hours, CALENDAR, # 56 tablet, Refills 0, Tot. Refills 0, Maintenance, 12/17/23 15:39:00 EST, Route to Pharmacy Electronically, [facility], Partial fill upon patient request; CALENDAR, 158, cm, ... Start Date: 12/17/23 Stop Date: 12/19/23 Status: Ordered OxyCONTIN 10 mg oral tablet, extended release 10 mg, 1, tablet, By Mouth, Every 12 hours, CALENDAR, # 56 tablet, Refills 0, Tot. Refills 0, Maintenance, 12/16/23 12:47:00 EST, Route to Pharmacy Electronically, [facility]/pharmacy #[id number], Partial fill upon patient request; CALENDAR, 158, cm, 12/07/23 12:0... Start Date: 12/16/23 Status: Ordered simvastatin 20 mg oral tablet 20 mg, 1, tablet, By Mouth, Daily at bedtime, # 90 tablet, Refills 1, Tot. Refills 1, Maintenance, 12/07/23 13:01:00 EST, Route to Pharmacy Electronically, [facility]/pharmacy #[id number], Partial fill upon patient request if the prescription is for a schedule II... Start Date: 12/07/23 Status: Ordered traZODone 100 mg oral tablet 100 mg, 1, tablet, By Mouth, Daily at bedtime, PRN, # 30 tablet, Refills 1, Tot. Refills 1, Maintenance, Sleep, 11/09/23 9:29:00 EST, Route to Pharmacy Electronically, [email or web address] #[id number], Partial fill upon patient request if the prescription... Start Date: 11/09/23 Status: Ordered Ventolin HFA 108 mcg/inh inhalation aerosol with adapter 2 puffs, Inhalation, Every 4 hours, PRN Wheezing/Shortness of Breath, # 1 each, 5 Refills, Maintenance, 05/20/23 12:01:00 EDT, [email or web address] #[id number], Asthma J45.909;, 158, cm, 04/01/23 7:42:00 EDT, [...] Personnel Name: Kaykay Craft [place] Position: [facility] RN Member Role: Primary Care Nurse Name: Alba Moore MD Position: [facility] Physician - Primary Care Member Role: PCP Address: Address: [address]rd [place] [address]- Name: Traci Adler RN Position: [facility] Hospital Acute Care Nursing Assistant Member Role: Primary Care Nurse Care Team Related Persons Name: ROGERS VELASQUEZ Address: home [address] [place] [address] Name: OMI VELASQUEZ Address: home [address] [place] [address] Name: ANGELA VELASQUEZ Address: home [address] [place] [address]
--- OUTSIDE RECORDS SUMMARY | 2024-07-01 17:09 | XMS_ITS | Continuity of Care Document ---
Author Organization [facility] Address [address] [place] [address]- Care Team Providers Care Senior Catering Sales Manager Name Role Phone Oscar MCMANUS, Alba Primary Care [id number] - [facility] [address] [place] [address]- Encounter Diagnosis Strep throat(Discharge Diagnosis) - 11/27/23 Memory change(Discharge Diagnosis) - 11/27/23 Attending Physician: Brook Castellanos NP Allergies, Adverse Reactions, Alerts Substance Reaction Severity [...] Diphth-Tetanus Toxoids Adsorbed(oldterm) 08/22/08 Given 1Result Comment: [facility] [id number] 2Admin Note: [facility] 3Admin Note: [facility] 4Result Comment: [id number] 5Admin Note: [facility] Medications ClearLax oral powder for reconstitution 1 scoop, By Mouth, Daily, PRN Constipation, dissolve in water or juice, # 527 Gm, 5 Refills, Maintenance, 11/25/19 12:24:00 EST, [facility] #[id number], 1 scoop By Mouth Daily,PRN:Constipation,Instr:dissolve in water or juice, 158, cm, 09/30/19 1... Start Date: 11/25/19 Status: Ordered EpiPen 2-Minor 0.3 mg injectable kit See Instructions, Intramuscular Once, # 1 each, 1 Refills, Soft Stop, 07/08/21 14:29:00 EDT, [facility] #[id number], 158, cm, 06/28/21 11:31:00 EDT, Height, 65.7, kg, 06/16/21 13:22:00 EDT, Dry Weight Start Date: 07/08/21 Status: Ordered Estrace Vaginal Cream 0.1 mg/g 1 gram, Vaginally, Daily at bedtime, Apply daily at bedtime for 2 weeks and then 2 times per week, # 42 Gm, 3 Refills, Maintenance, 07/15/23 15:07:00 EDT, [facility] #[id number], 158, cm, 07/15/23 14:57:00 EDT, Height, 63.5, [...] 05/04/23 14:23:00 EDT, Route to Pharmacy Electronically, [facility] #[id number], 158, cm, 04/01/23 7:42:00 EDT, Height, 64, kg, 07/10/21 9:37:00 EDT, Dry Weight Start Date: 05/04/23 Status: Ordered Myrbetriq 25 mg oral tablet, extended release 1 tablet = 25 mg, By Mouth, Daily, # 30 tablet, 5 Refills, Maintenance, 07/15/23 15:07:00 EDT, [facility] #[id number], Partial fill upon patient request if the prescription is for a schedule II opioid drug., 158, cm, 07/15/23 14:57:00 EDT, Height... Start Date: 07/15/23 Status: Ordered Narcan 4 mg/0.1 mL nasal spray = 4 mg, Nares, Both, Once, may repeat every 2 to 3 minutes until patient responds, # 1 each, 0 Refills, Soft Stop, 11/25/22 9:21:00 EST, [facility] #[id number], Partial fill upon patient requestif the prescription [...] tablet, 0 Refills, Maintenance, 11/26/23 12:06:00 EST, [facility] #[id number], CALENDAR, 158, cm, 11/09/23 9:33:00 EST, Height, 63.5, kg, 07/09/23 13:0... Start Date: 11/26/23 Status: Ordered OxyCONTIN 10 mg oral tablet, extended release 10 mg, 1, tablet, By Mouth, Every 12 hours, CALENDAR, # 56 tablet, Refills 0, Tot. Refills 0, Maintenance, 11/26/23 12:06:00 EST, Route to Pharmacy Electronically, [facility] #[id number], Partial fill upon patient request; CALENDAR, 158, cm, 10/13... Start Date: 11/26/23 Status: Ordered penicillin V potassium 500 mg oral tablet 1 tablet = 500 mg, By Mouth, 2 times a day, for 10 days, # 20 tablet, 0 Refills, Acute 12/07/23 11:31:00 EST, 11/27/23 11:31:00 EST, Tablet, [facility] #[id number], Partial fill upon patient request if the prescription is for a schedule II opioid... Start Date: 11/27/23 Stop Date: 12/07/23 Status: Ordered traZODone 100 mg oral tablet 100 mg, 1, tablet, By Mouth, Daily at bedtime, PRN, # 30 tablet, Refills 1, Tot. Refills 1, Maintenance, Sleep, 11/09/23 9:29:00 EST, Route to Pharmacy Electronically, [facility] #[id number], Partial fill upon patient request if the prescription... Start Date: 11/09/23 Status: Ordered Ventolin HFA 108 mcg/inh inhalation aerosol with adapter 2 puffs, Inhalation, Every 4 hours, PRN Wheezing/Shortness of Breath, # 1 each, 5 Refills, Maintenance, 05/20/23 12:01:00 EDT, [facility] #[id number], Asthma J45.909;, 158, cm, 04/01/23 7:42:00 EDT, [...] Diagnosis Diagnosis Type Effective Dates Health Status inical Service Informant Strep throat Discharge Diagnosis 11/27/23 Memory change Discharge Diagnosis 11/27/23 Vital Signs Most recent to oldest [Reference Range]: 1 2 Height 158 cm (11/27/23 11:03 AM) 158 cm (11/27/23 10:56 AM) Weight 72.1 kg (11/27/23 10:56 AM) Oxygen Saturation [94-100 %] 97 % (11/27/23 10:56 AM) Pulse Rate [55-90 bpm] 78 bpm (11/27/23 10:56 AM) Body Mass Index [18.5-24.99 kg/m2] 28.88 kg/m2 *H* (11/27/23 10:56 AM) Blood Pressure [90-138/55-84 mm Hg] 146/ 85mm Hg *H* (11/27/23 11:03 AM) 160/80mm Hg *H* (11/27/23 10:56 AM) Temperature [96.8-100.4 DegF] 98.6 DegF (11/27/23 10:56 AM) Mode of Delivery (Oxygen) Room air (11/27/23 10:56 AM) Blood pressure sites Arm, left (11/27/23 11:03 AM) Arm, left (11/27/23 10:56 AM) Temperature Route Oral (11/27/23 10:56 AM) Weight Obtained Via Standing scale (11/27/23 10:56 AM) Social History Social History Type Response Smoking Status Former smoker; Other : quit 1988; entered on: 02/14/15 Sex Patient Care team information Care Team Personnel Name: Kaykay Craft [place] Position: [facility] RN Member Role: Primary Care Nurse Name: Alba Moore MD Position: [facility] Physician - Primary Care Member Role: PCP [facility]: [facility] [address] [place] [address]- Name: Vitor MILLER, Traci Position: [facility] Hospital Cat Driver Member Role: Primary Care Nurse Care Team Related Persons Name: ROGERS VELASQUEZ Address: home [address] [place] [address] Name: OMI VELASQUEZ Address: home [address] [place] [address] Name: ANGELA VELASQUEZ Address: home [address] [place] [address]
--- OUTSIDE RECORDS SUMMARY | 2024-07-01 17:09 | XMS_ITS | Continuity of Care Document ---
Author Organization [facility] Address [address] [place] [address]- Care Team Providers Care Supervisor Correspondence Section Name Role Phone Oscar MCMANUS, Alba Primary Care Physician [place] [facility] 09/22/23 - 10/22/23 [facility] [address] [place] [address]- Allergies, Adverse Reactions, Alerts Substance Reaction Severity Status Latex Active Kiwi Active sulfa drugs Active iodinated radiocontrast dyes Active Cipro hives Active Bactrim Active Seafood Active Other Environmental [...] Diphth-Tetanus Toxoids Adsorbed(oldterm) 08/22/08 Given 1Result Comment: [facility] [id number] 2Admin Note: [facility] 3Admin Note: sarah 4Result Comment: [id number] 5Admin Note: [facility] Medications ClearLax oral powder for reconstitution 1 scoop, By Mouth, Daily, PRN Constipation, dissolve in water or juice, # 527 Gm, 5 Refills, Maintenance, 11/25/19 12:24:00 EST, [facility] #[id number], 1 scoop By Mouth Daily,PRN:Constipation,Instr:dissolve in water or juice, 158, cm, 09/30/19 1... Start Date: 11/25/19 Status: Ordered EpiPen 2-Minor 0.3 mg injectable kit See Instructions, Intramuscular Once, # 1 each, 1 Refills, Soft Stop, 07/08/21 14:29:00 EDT, [facility] #[id number], 158, cm, 06/28/21 11:31:00 EDT, Height, 65.7, kg, 06/16/21 13:22:00 EDT, Dry Weight Start Date: 07/08/21 Status: Ordered Estrace Vaginal Cream 0.1 mg/g 1 gram, Vaginally, Daily at bedtime, Apply daily at bedtime for 2 weeks and then 2 times per week, # 42 Gm, 3 Refills, Maintenance, 07/15/23 15:07:00 EDT, [facility] #[id number], 158, cm, 07/15/23 14:57:00 EDT, Height, 63.5, kg, 07/09/23 13:09:00... Start Date: 07/15/23 Status: Ordered ibuprofen 600 mg oral tablet 1, tablet, By Mouth, 3 times a day, # 90 tablet, Refills 3, Tot. Refills 3, Maintenance, 05/04/23 14:23:00 EDT, Route to Pharmacy Electronically, [facility] #[id number], 158, cm, 04/01/23 7:42:00 EDT, Height, 64, kg, 07/10/21 9:37:00 EDT, Dry Weight Start Date: 05/04/23 Status: Ordered Myrbetriq 25 mg oral tablet, extended release 1 tablet = 25 mg, By Mouth, Daily, # 30 tablet, 5 Refills, Maintenance, 07/15/23 15:07:00 EDT, [facility] #[id number], Partial fill upon patient request if the prescription is for a schedule II opioid drug., 158, cm, 07/15/23 14:57:00 EDT, Height... Start Date: 07/15/23 Status: Ordered Narcan 4 mg/0.1 mL nasal spray = 4 mg, Nares, Both, Once, may repeat every 2 to 3 minutes until patient responds, # 1 each, 0 Refills, Soft Stop, 11/25/22 9:21:00 EST, [facility] #[id number], Partial fill upon patient requestif the prescription [...] tablet, 0 Refills, Maintenance, 10/21/23 13:15:00 EST, [facility] #[id number], CALENDAR, 158, cm, 10/09/23 13:49:00 EST, Height, 63.5, kg, 07/09/23 13:... Start Date: 10/21/23 Status: Ordered OxyCONTIN 10 mg oral tablet, extended release 10 mg, 1, tablet, By Mouth, Every 12 hours, CALENDAR, # 56 tablet, Refills 0, Tot. Refills 0, Maintenance, 09/23/23 13:18:00 EST, Route to Pharmacy Electronically, [facility] #[id number], Partial fill upon patient request; CALENDAR, 158, cm, 10/0... Start Date: 09/23/23 Status: Ordered Ventolin HFA 108 mcg/inh inhalation aerosol with adapter 2 puffs, Inhalation, Every 4 hours, PRN Wheezing/Shortness of Breath, # 1 each, 5 Refills, Maintenance, 05/20/23 12:01:00 EDT, [facility] #[id number], Asthma J45.909;, 158, cm, 04/01/23 7:42:00 EDT, Height, 64, kg, 07/10/21 9:37:00 EDT, Dry Weight Start Date: 05/20/23 Status: Ordered Wellbutrin XL 150 mg/24 hours oral tablet, extended release 1 tablet = 150 mg, By Mouth, Every 24 hours, # 30 tablet, 1 Refills, Maintenance, 07/15/23 15:14:00EDT, ER Tablet, [facility] #[id number], Partial fill upon patient request if the [...] Team Personnel Name: Kaykay Craft [place] Position: [facility] RN Member Role: Primary Care Nurse Name: Alba Moore MD Position: [facility] Physician - Primary Care Member Role: PCP Address: Address: [employer] [address]rd [place] [address]- Name: Traci Adler RN Position: [facility] Hospital Income Tax Investigator Member Role: Primary Care Nurse Care Team Related Persons Name: ROGERS VELASQUEZ Address: home [address] [place] [address] Name: OMI VELASQUEZ Address: home [address] [place] [address] Name: ANGELA VELASQUEZ Address: home [address] [place] [address]
--- OUTSIDE RECORDS SUMMARY | 2024-07-01 17:09 | XMS_ITS | Continuity of Care Document ---
Author Organization [facility] Address [address] [place] [address]- Care Team Providers Care Gold Leaf Printer Name Role Phone Oscar MCMANUS, Alba Primary Care Physician [place] [facility] [place] 03/23/24 [facility] [address] [place] [phone]- Allergies, Adverse Reactions, Alerts Substance Reaction Severity Status Latex Active Kiwi Active Avocado Active sulfa [...] Diphth-Tetanus Toxoids Adsorbed(oldterm) 08/22/08 Given 1Result Comment: [facility] [id number] 2Admin Note: [facility] 3Admin Note: sarah 4Result Comment: [id number] 5Admin Note: [facility] Medications Albuterol (Eqv-Ventolin HFA) 90 mcg/inh inhalation aerosol See Instructions, INHALE 2 PUFFS BY MOUTH EVERY 4 HOURS NEEDED FOR WHEEZING OR SHORTNESS OF BREATH, # 18 each, 5 Refills, Maintenance, 02/22/24 17:04:00 EDT, [facility], 30, INHALE 2 PUFFS BYMOUTH EVERY 4 HOURS NEEDED FOR WHEEZING OR SHORT... Start Date: 02/22/24 Status: Ordered ClearLax oral powder for reconstitution 1 scoop, By Mouth, Daily, PRN Constipation, dissolve in water or juice, # 527 Gm, 5 Refills, Maintenance, 11/25/19 12:24:00 EST, [facility] #[id number], 1 scoop By Mouth Daily,PRN:Constipation,Instr:dissolve in water or juice, 158, cm, 09/30/19 1... Start Date: 11/25/19 Status: Ordered EpiPen 2-Minor 0.3 mg injectable kit See Instructions, Intramuscular Once, # 1 each, 1 Refills, Soft Stop, 07/08/21 14:29:00 EDT, [facility] #[id number], 158, cm, 06/28/21 11:31:00 EDT, Height, 65.7, kg, 06/16/21 13:22:00 EDT, Dry Weight Start Date: 07/08/21 Status: Ordered Estrace Vaginal Cream 0.1 mg/g 1 gram, Vaginally, Daily at bedtime, Apply daily at bedtime for 2 weeks and then 2 times per week, # 42 Gm, 3 Refills, Maintenance, 03/21/24 9:38:00 EDT, [facility]/pharmacy #[id number], 158, cm, 02/18/24 10:21:00 [...] 03/21/24 9:38:00 EDT, Route to Pharmacy Electronically, [facility]/pharmacy #[id number], 158, cm, 02/18/24 10:21:00 EDT, Height, 63.5, kg, 07/09/23 13:09:00 EDT, Dry Weight Start Date: 03/21/24 Status: Ordered morphine 15 mg oral tablet, immediate release 1 tablet = 15 mg, By Mouth, Every 6 hours, PRN as needed for pain, for 28 days, SOLE CEMENTER reviewed, # 112tablet, 0 Refills, Acute 04/18/24 10:21:00 EDT, 03/21/24 10:21:00 EDT, Tablet, [facility]/pharmacy #[id number], Partial fill upon patient request if the prescriptio... Start Date: 03/21/24 Stop Date: 04/18/24 Status: Ordered morphine 15 mg/8 to 12 hr oral tablet, extended release 1 tablet = 15 mg, By Mouth, Every 12 hours, SOLE CEMENTER reviewed, # 56 tablet, 0 Refills, Maintenance, 03/21/24 10:21:00 EDT, ER Tablet, [facility]/pharmacy #[id number], Partial fill upon patient request if the prescription is for a schedule II opioid drug. Opioid Switch,... Start Date: 03/21/24 Stop Date: 04/18/24 Status: Ordered Myrbetriq 25 mg oral tablet, extended release 1 tablet = 25 mg, By Mouth, Daily, # 30 tablet, 5 Refills, Maintenance, 03/21/24 9:38:00 EDT, [facility]/pharmacy #[id number], Partial fill upon patient request if the prescription is for a schedule II opioid drug., 158, cm, 02/18/24 10:21:00 EDT, Height, 63.5, kg... Start Date: 03/21/24 Status: Ordered Narcan 4 mg/0.1 mL nasal spray = 4 mg, Nares, Both, Once, may repeat every 2 to 3 minutes until patient responds, # 1 each, 0 Refills, Soft Stop, 11/25/22 9:21:00 [id number], Partial fill upon patient requestif the prescription is for a schedule II opioid alva... Start Date: 11/25/22 Status: Ordered omeprazole 20 mg oral enteric coated capsule 1 capsule = 20 mg, By Mouth, Daily, # 90 capsule, 0 Refills, Maintenance, 03/21/24 9:36:00 EDT, EC Capsule, [facility]/pharmacy #[id number], 158, cm, 02/18/24 10:21:00 EDT, Height, 63.5, kg, 07/09/23 13:09:00 EDT, Dry Weight Start Date: 03/21/24 Stop Date: 06/19/24 Status: Ordered simvastatin 20 mg oral tablet 20 mg, 1, tablet, By Mouth, Daily at bedtime, # 90 tablet, Refills 1, Tot. Refills 1, Maintenance, 02/22/24 13:47:00 EDT, Route to Pharmacy Electronically, [facility]/pharmacy #[id number], Partial fill upon patient request if the prescription is for a schedule II... Start Date: 02/22/24 Status: Ordered traZODone 100 mg oral tablet 100 mg, 1, tablet, By Mouth, Daily at bedtime, PRN, # 90 tablet, Refills 0, Tot. Refills 0, Maintenance, Sleep, 02/11/24 11:11:00 EDT, Route to Pharmacy Electronically, 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 prescription opiate use Confirmed Active Raynaud's syndrome Confirmed Active Restless legs syndrome Confirmed 2003 Active Solitary pulmonary nodule Confirmed Active Social History Social History Type Response Smoking Status Former smoker; Other : quit 1988; entered on: 02/14/15 Sex Patient Care team information Care Team Personnel Name: Kaykay Craft [place] Position: [facility] Office Staff Member Role: Primary Care Nurse Name: Oscar MCMANUS, Alba Position: [facility] Physician - Primary Care Member Role: PCP Address: Address: [address] [place] [phone]- Name: Vitor MILLER, Traci Position: [facility] Hospital Machine Adjuster Member Role: Primary Care Nurse Care Team Related Persons Name: ROGERS VELASQUEZ Address: [address] [place] [address] Name: OMI VELASQUEZ Address: home [address] [place] [address] Name: ANGELA VELASQUEZ Address: home [address] [place] [address]
--- OUTSIDE RECORDS SUMMARY | 2024-07-01 17:09 | XMS_ITS | Continuity of Care Document ---
Author Organization [facility] Adult Address [address] [place] [address]- Care Team Providers Care Program Counselor Name Role Phone Oscar MCMANUS, Alba Primary Care Physician [id number] Date(s): 12/07/23 - 12/14/23 [facility] Adult [address] [place] [address]- Encounter Diagnosis Chronic back pain(Discharge Diagnosis) - 12/07/23 Lumbar degenerative disc disease(Discharge Diagnosis) - 12/07/23 Dyslipidemia(Discharge Diagnosis) - 12/07/23 Loss of memory(Discharge Diagnosis) - 12/07/23 Attending Physician: Alba Moore MD Allergies, Adverse [...] Diphth-Tetanus Toxoids Adsorbed(oldterm) 08/22/08 Given 1Result Comment: [facility] [id number] 2Admin Note: [facility] 3Admin Note: [email or web address] 4Result Comment: [id number] 5Admin Note: [facility] Medications ClearLax oral powder for reconstitution 1 scoop, By Mouth, Daily, PRN Constipation, dissolve in water or juice, # 527 Gm, 5 Refills, Maintenance, 11/25/19 12:24:00 EST, [facility] #[id number], 1 scoop By Mouth Daily,PRN:Constipation,Instr:dissolve in water or juice, 158, cm, 09/30/19 1... Start Date: 11/25/19 Status: Ordered EpiPen 2-Minor 0.3 mg injectable kit See Instructions, Intramuscular Once, # 1 each, 1 Refills, Soft Stop, 07/08/21 14:29:00 EDT, [facility] #[id number], 158, cm, 06/28/21 11:31:00 EDT, Height, 65.7, kg, 06/16/21 13:22:00 EDT, Dry Weight Start Date: 07/08/21 Status: Ordered Estrace Vaginal Cream 0.1 mg/g 1 gram, Vaginally, Daily at bedtime, Apply daily at bedtime for 2 weeks and then 2 times per week, # 42 Gm, 3 Refills, Maintenance, 07/15/23 15:07:00 EDT, [facility] #[id number], 158, cm, 07/15/23 14:57:00 EDT, Height, 63.5, [...] 05/04/23 14:23:00 EDT, Route to Pharmacy Electronically, [facility] #[id number], 158, cm, 04/01/23 7:42:00 EDT, Height, 64, kg, 07/10/21 9:37:00 EDT, Dry Weight Start Date: 05/04/23 Status: Ordered Myrbetriq 25 mg oral tablet, extended release 1 tablet = 25 mg, By Mouth, Daily, # 30 tablet, 5 Refills, Maintenance, 07/15/23 15:07:00 EDT, [facility] #[id number], Partial fill upon patient request if the prescription is for a schedule II opioid drug., 158, cm, 07/15/23 14:57:00 EDT, Height... Start Date: 07/15/23 Status: Ordered Narcan 4 mg/0.1 mL nasal spray = 4 mg, Nares, Both, Once, may repeat every 2 to 3 minutes until patient responds, # 1 each, 0 Refills, Soft Stop, 11/25/22 9:21:00 EST, [facility] #[id number], Partial fill upon patient requestif the prescription [...] tablet, 0 Refills, Maintenance, 11/26/23 12:06:00 EST, [facility] #[id number], CALENDAR, 158, cm, 11/09/23 9:33:00 EST, Height, 63.5, kg, 07/09/23 13:0... Start Date: 11/26/23 Status: Ordered OxyCONTIN 10 mg oral tablet, extended release 10 mg, 1, tablet, By Mouth, Every 12 hours, CALENDAR, # 18 tablet, Refills 0, Tot. Refills 0, Maintenance, 12/07/23 12:50:00 EST, Route to Pharmacy Electronically, [facility]/pharmacy #[id number], Partial fill upon patient request; CALENDAR, 158, cm, 12/07/23 12:0... Start Date: 12/07/23 Stop Date: 12/16/23 Status: Ordered simvastatin 20 mg oral tablet 20 mg, 1, tablet, By Mouth, Daily at bedtime, # 90 tablet, Refills 1, Tot. Refills 1, Maintenance, 12/07/23 13:01:00 EST, Route to Pharmacy Electronically, [facility]/pharmacy #[id number], Partial fill upon patient request if the prescription is for a schedule II... Start Date: 12/07/23 Status: Ordered traZODone 100 mg oral tablet 100 mg, 1, tablet, By Mouth, Daily at bedtime, PRN, # 30 tablet, Refills 1, Tot. Refills 1, Maintenance, Sleep, 11/09/23 9:29:00 EST, Route to Pharmacy Electronically, [facility] #[id number], Partial fill upon patient request if the prescription... Start Date: 11/09/23 Status: Ordered Ventolin HFA 108 mcg/inh inhalation aerosol with adapter 2 puffs, Inhalation, Every 4 hours, PRN Wheezing/Shortness of Breath, # 1 each, 5 Refills, Maintenance, 05/20/23 12:01:00 EDT, [facility] #[id number], Asthma J45.909;, 158, cm, 04/01/23 7:42:00 EDT, [...] Effective Dates Health Status Clinical Service Informant Chronic back pain Discharge Diagnosis 12/07/23 Lumbar degenerative disc disease Discharge Diagnosis 12/07/23 Dyslipidemia Discharge Diagnosis 12/07/23 Loss of memory Discharge Diagnosis 12/07/23 Vital Signs Most recent to oldest [Reference Range]: 1 Height 158 cm (12/07/23 12:03 PM) Social History Social History Type Response Smoking Status Former smoker; Other : quit 1988; entered on: 02/14/15 Sex Patient Care team information Care Team Personnel Name: Kaykay Craft [place] Position: [facility] RN Member Role: Primary Care Nurse Name: Alba Moore MD Position: [facility] Physician - Primary Care Member Role: PCP Address: Address: [address] [place] [address] [address] [place] [address]- Name: Vitor MILLER, Traci 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
--- OUTSIDE RECORDS SUMMARY | 2024-07-01 17:09 | XMS_ITS | Continuity of Care Document ---
Author Organization [facility] Adult Address [address] [place] [address]- Care Team Providers Care Intensive Care Anaesthetist Name Role Phone Oscar MCMANUS, Alba Primary Care Physician [place] [facility] [place]s): 11/09/23 - 11/16/23 [facility] Adult [address] [place] [address]- Encounter Diagnosis Well adult exam(Discharge Diagnosis) - 11/09/23 Dyslipidemia(Discharge Diagnosis) - 11/09/23 Lumbar degenerative disc disease(Discharge Diagnosis) - 11/09/23 Osteopenia(Discharge Diagnosis) - 11/09/23 Overactive bladder(Discharge Diagnosis) - 11/09/23 Restless legs syndrome(Discharge Diagnosis) - 11/09/23 ADHD (attention deficit hyperactivity disorder)(Discharge Diagnosis) - 11/09/23 Vaginal atrophy(Discharge Diagnosis) - 11/09/23 Major depressive disorder, single episode, moderate(Discharge Diagnosis) - 11/09/23 Blood pressure elevated without history of HTN(Discharge Diagnosis) - 11/09/23 Attending Physician: Alba Moore MD Allergies, Adverse [...] 1Result Comment: [facility] [id number] 2Admin Note: [facility] 3Admin Note: [facility] 4Result Comment: [id number] 5Admin Note: [facility] Medications ClearLax oral powder for reconstitution 1 scoop, By Mouth, Daily, PRN Constipation, dissolve in water or juice, # 527 Gm, 5 Refills, Maintenance, 11/25/19 12:24:00 EST, [facility] #[id number], 1 scoop By Mouth Daily,PRN:Constipation,Instr:dissolve in water or juice, 158, cm, 09/30/19 1... Start Date: 11/25/19 Status: Ordered EpiPen 2-Minor 0.3 mg injectable kit See Instructions, Intramuscular Once, # 1 each, 1 Refills, Soft Stop, 07/08/21 14:29:00 EDT, [facility] #[id number], 158, cm, 06/28/21 11:31:00 EDT, Height, 65.7, kg, 06/16/21 13:22:00 EDT, Dry Weight Start Date: 07/08/21 Status: Ordered Estrace Vaginal Cream 0.1 mg/g 1 gram, Vaginally, Daily at bedtime, Apply daily at bedtime for 2 weeks and then 2 times per week, # 42 Gm, 3 Refills, Maintenance, 07/15/23 15:07:00 EDT, [facility] #[id number], 158, cm, 07/15/23 14:57:00 EDT, Height, 63.5, [...] 05/04/23 14:23:00 EDT, Route to Pharmacy Electronically, [facility] #[id number], 158, cm, 04/01/23 7:42:00 EDT, Height, 64, kg, 07/10/21 9:37:00 EDT, Dry Weight Start Date: 05/04/23 Status: Ordered Myrbetriq 25 mg oral tablet, extended release 1 tablet = 25 mg, By Mouth, Daily, # 30 tablet, 5 Refills, Maintenance, 07/15/23 15:07:00 EDT, [facility] #[id number], Partial fill upon patient request if the prescription is for a schedule II opioid drug., 158, cm, 07/15/23 14:57:00 EDT, Height... Start Date: 07/15/23 Status: Ordered Narcan 4 mg/0.1 mL nasal spray = 4 mg, Nares, Both, Once, may repeat every 2 to 3 minutes until patient responds, # 1 each, 0 Refills, Soft Stop, 11/25/22 9:21:00 EST, [facility] #[id number], Partial fill upon patient requestif the prescription [...] tablet, 0 Refills, Maintenance, 10/21/23 13:15:00 EST, [facility] #[id number], CALENDAR, 158, cm, 10/09/23 13:49:00 EST, Height, 63.5, kg, 07/09/23 13:... Start Date: 10/21/23 Status: Ordered OxyCONTIN 10 mg oral tablet, extended release 10 mg, 1, tablet, By Mouth, Every 12 hours, CALENDAR, # 56 tablet, Refills 0, Tot. Refills 0, Maintenance, 10/23/23 17:07:00 EST, Route to Pharmacy Electronically, [facility] #[id number], Partial fill upon patient request; CALENDAR, 158, [...] 11/09/23 9:29:00 EST, Route to Pharmacy Electronically, [facility] #[id number], Partial fill upon patient request if the prescription... Start Date: 11/09/23 Status: Ordered Ventolin HFA 108 mcg/inh inhalation aerosol with adapter 2 puffs, Inhalation, Every 4 hours, PRN Wheezing/Shortness of Breath, # 1 each, 5 Refills, Maintenance, 05/20/23 12:01:00 EDT, [facility] #[id number], Asthma J45.909;, 158, cm, 04/01/23 7:42:00 EDT, [...] Effective Dates Health Status Clinical Service Informant Well adult exam Discharge Diagnosis 11/09/23 Major depressive disorder, single episode, moderate Discharge Diagnosis 11/09/23 Dyslipidemia Discharge Diagnosis 11/09/23 Lumbar degenerative disc disease Discharge Diagnosis 11/09/23 Osteopenia Discharge Diagnosis 11/09/23 Overactive bladder Discharge Diagnosis 11/09/23 Restless legs syndrome Discharge Diagnosis 11/09/23 ADHD (attention deficit hyperactivity disorder) Discharge Diagnosis 11/09/23 Vaginal atrophy Discharge Diagnosis 11/09/23 Blood pressure elevated without history of HTN Discharge Diagnosis 11/09/23 Vital Signs Most recent to oldest [Reference Range]: 1 2 3 Height 158 cm (11/09/23 9:33 AM) 158 cm (11/09/23 9:01 AM) 158 cm (11/09/23 8:56 AM) Weight 72.5 kg (11/09/23 8:56 AM) Oxygen Saturation [94-100 %] 98 % (11/09/23 8:56 AM) Pulse Rate [55-90 bpm] 72 bpm (11/09/23 8:56 AM) Body Mass Index [18.5-24.99 kg/m2] 29.04 kg/m2 *H* (11/09/23 8:56 AM) Blood Pressure [90-138/55-84 mm Hg] 150/82mm Hg *H* (11/09/23 9:33 AM) 158/80mm Hg *H* (11/09/23 9:01 AM) 163/77mm Hg *H* (11/09/23 8:56 AM) Respiratory Rate [16-30 br/min] 17 br/min (11/09/23 8:56 AM) Temperature [96.8-100.4 DegF] 97.8 DegF (11/09/23 8:56 AM) Mode of Delivery (Oxygen) Room air (11/09/23 8:56 AM) Blood pressure sites Arm, left (11/09/23 9:01 AM) Arm, right (11/09/23 8:56 AM) Temperature Route Temporal (11/09/23 8:56 AM) Weight Obtained Via Standing scale (11/09/23 8:56 AM) Social History Social History Type Response Smoking Status Former smoker; Other : quit 1988; entered on: 02/14/15 Sex Note * Michelle Moy: PERFORM, SIGN, VERIFY Event Display: Patient Education/Instruction Authored Date: [id number] [facility] *[facility] [place] [facility] Clinical Summary Name EMMA VELASQUEZ Age 72 Years 1950 PCP Alba Moore MD PCP Visit Date 11/09/2023 08:52:00 Additional Instructions: Scheduled Appointments?? Future Appointments ?*[facility] ?[address]??[place],??[place],??[address] ?Phone:??--?Fax:??-- ?Appt. Date:??12/09/2023?9:40 AM ?Scheduled Provider:??Shahrzad Cee Follow-Up Instructions ?? With: Address: When: Alba Moore MD Within 1 month Comments: CHRISTOPH for chronic pain medication review With: Address: When: Alba Moore MD Within 6 months Comments: RET With: Address: When: Alba Moore MD Within 1 year Comments: MWV Diagnosis Major depressive disorder, single episode, moderate; Elevated blood-pressure reading, without diagnosis of hypertension; Postmenopausal atrophic vaginitis; Restless legs syndrome; Encounter for general adult medical examination without abnormal findings; Other intervertebral disc degeneration, lumbar region; Other specified disorders of bone density and structure, unspecified site; Hyperlipidemia, unspecified; Overactive bladder; Attention-deficit hyperactivity disorder, predominantly inattentive type Medications: Please continue your medications until treatment is completed or stopped by your provider. Discuss any questions related to medications with your provider. New Medications [facility] #[id number], [address] [place], [place] [id number], [phone] Trazodone (traZODone 100 mg oral tablet) 1 tab(s) Oral Daily at Bedtime as needed Sleep. Refills: 1. Next Dose: - Durable Medical Equipment (Home Blood Pressure Monitor) Check BP as directed. Refills: 0. Next Dose: Medications to Continue with No Changes These medications were not printed or sent to your pharmacy Albuterol (Ventolin HFA 108 mcg/inh inhalation aerosol with adapter) 2 puff(s) Inhalation every 4 hours as needed Wheezing/Shortness of Breath. Refills: 5. Next Dose: EPINEPHrine (EpiPen 2-Minor 0.3 mg injectable kit) Intramuscular Once. Refills: 1. Next Dose: Estradiol Topical (Estrace Vaginal Cream 0.1 mg/g) 1 gram Vaginally Daily at Bedtime. Apply daily at bedtime for 2 weeks and then 2 times per week. Refills: 3. Next Dose: Ibuprofen (ibuprofen 600 mg oral tablet) 1 tab(s) Oral 3 times a day. Refills: 3. Next Dose: mirabegron (Myrbetriq 25 mg oral tablet, extended release) 1 tab(s) Oral Daily. Refills: 5. Next Dose: nalOXONE (Narcan 4 mg/0.1 mL nasal spray) 4 Milligram Nares, Both once. may repeat every 2 to 3 minutes until patient responds. Refills: 0. Next Dose: Omeprazole (omeprazole 20 mg oral enteric coated capsule) 1 capsule Oral Daily for 90 Days. Refills: 0. Next Dose: Oxycodone (oxyCODONE 10 mg oral tablet) CALENDAR. 0.5-1 tablet By Mouth Every 4 hours, max 4 tabs in 24 hours. Refills: 0. Next Dose: Oxycodone (OxyCONTIN 10 mg oral tablet, extended release) 1 tab(s) Oral every 12 hours. CALENDAR. Refills: 0. Next Dose: Polyethylene Glycol 3350 (ClearLax oral powder for reconstitution) 1 scoop Oral Daily as needed Constipation. dissolve in water or juice. Refills: 5. Next Dose: tadalafil (tadalafil 5 mg oral tablet) 1 tab(s). TAKE ONE TABLET BY MOUTH EVERY DAY. Next Dose: No Longer Take the Following Medications BuPROpion (Wellbutrin XL 150 mg/24 hours oral tablet, extended release) 1 tab(s) Oral every 24 hours. Refills: 1. Allergy Info:?? Kiwi; Avocado; Bananas; iodine; Other Environmental Allergy; Seafood; Latex; Bactrim; Cipro; iodinated radiocontrast dyes; sulfa drugs Medications Given This Visit Future Orders ?Dexa Bone Density (Axial)? Order Date:11/09/23?- Complete on or after?11/09/23 Vital Signs Height 158 cm Weight 72.5 kg BMI 29.04 kg/m2 Blood Pressure 150 mm Hg/82 mm Hg Temperature 97.8 DegF Pulse Rate 72 bpm Respiratory Rate 17 br/min 02 Sat Mode of Delivery 98 %/Room air You can now view a summary of your hospital visit from the comfort of your home through a free online portal called [employer]. [employer] is a website that allows you to securely view your medical information including discharge summary, medications and follow-up visits. ??You can alsosend a secure electronic message to your doctor???s office to request appointments, renew medications or just ask a question. You can enroll at [email or web address] or register during your next office visit. Disclaimer:?? The information provided is of a general nature and is intended to be used in conjunction with the recommendations and advice of your health care practitioner. ??Every effort has been made to ensure that the information provided is accurate and complete at the time it is provided to you however, as your needs change, or, as new ??information becomes available, different or additional instructions may be required. If you have questions, please consult with your primary care provider or pharmacist, as appropriate. ??This information is not intended to serve as substitution for assessment and evaluation by a qualified health care provider. If you do not have a primary care provider, you may find a [facility] provider by calling [employer] at [phone]. [facility], in keeping with [facility] guidance, no longer requires face masks for staff, patientsor visitors in most situations. Similar to time spent indoors at other locations, there is the chance that you were exposed to respiratory viruses during your time with us (such as flu or COVID-19).? If you develop symptoms concerning for a viral respiratory infection, please seek testing (and treatment if indicated) from your medical provider or home test kit. For information about the plan of care including goals and instructions for your diagnosis, please see the patient education orders section of this document. Patient Education Materials?? The content of this educational material or handout may have been modified, supplemented, or adapted from its original content and format to support your individualized medical care. Prevention Guidelines, Women Ages 65 and Older Screening tests and vaccines are an important part of managing your health. Health counseling is essential, too. Below are guidelines for these, for women ages 65 and older. Talk with your healthcareprovider to make sure you???re up to date on what you need. Screening Who needs it How often Type 2 diabetes or prediabetes All adults beginning at age 45 and adults without symptoms at any age who are overweight or obese and have 1 or more additional risk factors for diabetes At least every 3 years Alcohol misuse All women in this age group At routine exams Blood pressure All women in this age group Every 2 years if your blood pressure is less than 120/80 mm Hg; yearly if your systolic blood pressure is 120 to 139 mm Hg, or your diastolic blood pressure reading is 80 to 89 mm Hg Breast cancer All women in this age group Yearly mammogram and clinical breast exam1 Cervical cancer Only women who had abnormal screening results before age 65 Talk with your healthcare provider Chlamydia Women at increased risk for infection At routine exams Colorectal cancer All women in this age group1 Flexible sigmoidoscopy every 5 years, or colonoscopy every 10 years, or double- contrast barium enema every 5 years; yearly fecal occult blood test or fecal immunochemical test; or a stool DNA test asoften as your healthcare provider advises; talk with your healthcare provider about which tests arebest for you Depression All women in this age group At routine exams Gonorrhea Sexually active women at increased risk for infection At routine exams Hepatitis C Anyone at increased risk; 1 time for those born between 1945 and 1965 At routine exams High cholesterol or triglycerides All women in this age group who are at risk for coronary artery disease At least every 5 years HIV Women at increased risk for infection ??? talk with your healthcare provider At routine exams Lung cancer Adults age 55 to 80 who have smoked Yearly screening in smokers with 30 pack-year history of smoking or who quit within 15 years Obesity All women in this age group At routine exams Osteoporosis All women in this age group Bone density test at age 65, then follow-up as advised by your healthcare provider Syphilis Women at increased risk for infection ??? talk with your healthcare provider At routine exams Thyroid-Stimulating Hormone (TSH) All women in this age group Every 5 years Tuberculosis Women at increased risk for infection ??? talk with your healthcare provider Ask your healthcare provider Vision All women in this age group Every 1 to 2 years; if you have a chronic health condition, ask your healthcare provider if you need exams more often Vaccine Who needs it How often Chickenpox (varicella) All women in this age group who have no record of this infection or vaccine 2 doses; second dose should be given at least 4 weeks after the first dose Hepatitis A Women at increased risk for infection ??? talk with your healthcare provider 2 doses given 6 months apart Hepatitis B Women at increased risk for infection ??? talk with your healthcare provider 3 doses over 6 months; second dose should be given 1 month after the first dose; the third dose should be given at least 2 months after the second dose and at least 4 months after the first dose Haemophilus influenza??Type B (HIB) Women at increased risk for infection ??? talk with your healthcare provider 1 to 3 doses Influenza (flu) All women in this age group Once a year Pneumococcal??conjugate vaccine (PCV13)??and pneumococcal polysaccharide??vaccine (PPSV23) All women in this age group 1 dose of each vaccine Tetanus/diphtheria/pertussis (Td/Tdap) booster All women in this age group Td every 10 years, or a one-time dose of Tdap instead of a Td booster after age 18, then Td every 10 years Zoster All women in this age group 1 dose Counseling Who needs it How often Diet and exercise Women who are overweight or obese When diagnosed, and then at routine exams Fall prevention (exercise and vitamin D supplements) All women in this age group At routine exams Sexually transmitted infection prevention Women at increased risk for infection ??? talk with your healthcare provider At routine exams Use of daily aspirin Women ages 55 and up in this age group who are at risk for cardiovascular health problems such as stroke When your risk is known Use of tobacco and the health effects it can cause All women in this age group Every exam 1American [employer] ?? [id number] [employer]. [address] [place] [address], [place] [address]. All rights reserved. This information is not intended as a substitute for professional medical care. Always follow your healthcare professional's instructions. 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
--- OUTSIDE RECORDS SUMMARY | 2024-07-01 17:10 | XMS_ITS | Continuity of Care Document ---
Author Organization [facility] Adult Address [address] [place] [address]- Care Team Providers Care Deicer Element Winder Machine Name Role Phone Oscar MCMANUS, Alba Primary Care Physician Encounter [facility] Date(s): 05/19/24 - 06/18/24 [facility] Adult [address] [place] [address]- Allergies, Adverse Reactions, Alerts Substance Reaction Severity Status iodinated radiocontrast dyes Active Latex Active Seafood Active Kiwi Active sulfa drugs Active Cipro [...] Diphth-Tetanus Toxoids Adsorbed(oldterm) 08/22/08 Given 1Result Comment: [facility] [id number] 2Result Comment: [facility] [id number] 3[facility] 4Admin Note: sarah 5Result Comment: [id number] 6Admin Note: [facility] Medications Albuterol (Eqv-Ventolin HFA) 90 mcg/inh inhalation aerosol See Instructions, INHALE 2 PUFFS BY MOUTH EVERY 4 HOURS NEEDED FOR WHEEZING OR SHORTNESS OF BREATH, # 18 each, 5 Refills, Maintenance, 02/22/24 17:04:00 EDT, [id number], 30, INHALE 2 PUFFS BYMOUTH EVERY 4 HOURS NEEDED FOR WHEEZING OR SHORT... Start Date: 02/22/24 Status: Ordered ClearLax oral powder for reconstitution 1 scoop, By Mouth, Daily, PRN Constipation, dissolve in water or juice, # 527 Gm, 5 Refills, Maintenance, 05/30/24 12:21:00 EDT, [facility]/pharmacy #[id number], 1 scoop By Mouth Daily,PRN:Constipation,Instr:dissolve in water or juice, 158, cm, 05/30/24 12:11:00 E... Start Date: 05/30/24 Status: Ordered EpiPen 2-Minor 0.3 mg injectable kit See Instructions, Intramuscular Once, # 1 each, 1 Refills, Soft Stop, 07/08/21 14:29:00 EDT, [id number], 158, cm, 06/28/21 11:31:00 EDT, Height, 65.7, [...] 0 Refills, Soft Stop, 11/25/22 9:21:00 EST, [facility] #[id number], Partial fill upon patient requestif the prescription is for a schedule II opioid alva... Start Date: 11/25/22 Status: Ordered omeprazole 20 mg oral enteric coated capsule 1 capsule, By Mouth, Daily, # 90 capsule, 1 Refills, Maintenance, 05/16/24 10:34:00 EDT, [facility] STORE 48562, 158, cm, 05/08/24 10:56:00 EDT, Height, 63.5, kg, 07/09/23 13:09:00 EDT, Dry Weight Start Date: 05/16/24 Status: Ordered oxyCODONE 10 mg oral tablet See Instructions, 0.5-1 tablet By Mouth Every 4 hours, max 4 tabs in 24 hours, # 112 tablet, 0 Refills, Maintenance, 06/14/24 19:24:00 EDT, [facility]/pharmacy #[id number], 158, cm, 06/03/24 7:47:00 EDT, Height, 63.5, kg, 07/09/23 13:09:00 EDT, Dry Weight, 4, tablet Start Date: 06/14/24 Status: Ordered OxyCONTIN 10 mg oral tablet, extended release 10 mg, 1, tablet, By Mouth, Every 12 hours, CALENDAR, # 56 tablet, Refills 0, Tot. Refills 0, Maintenance, 06/14/24 19:24:00 EDT, [facility], [facility] 59490, 158, cm, 05/08/24 10:56:00 EDT, Height, 63.5, [...] Active Pituitary microadenoma, 4mm Confirmed 2020 Active prison prescription opiate use Confirmed Active Raynaud's syndrome Confirmed Active Restless legs syndrome Confirmed 2003 Active Solitary pulmonary nodule Confirmed Active Social History Social History Type Response Smoking Status Former smoker; Other : quit 1988; entered on: 02/14/15 Sex Patient Care team information Care Team Personnel Name: Kaykay Craft [place] Position: [facility] Office Staff Member Role: Primary Care Nurse Name: Liudmila Andujar Position: [facility] Yarn Inspector Member Role: Export Documents Clerk Name: Oscar MCMANUS, Alba Position: [facility] Physician - Primary Care Member Role: PCP Address: Address: [address] [place] [address] [address] [place] [address]- Name: Traci Adler RN Position: [facility] RN Member Role: Primary Care Nurse Care Team Related Persons Name: R[place]ERS VELASQUEZ Address: home [address] [place] [address] Name: OMI VELASQUEZ Address: home [address] [place] [address] Name: ANGELA VELASQUEZ Address: home [address] [place] [address]
--- OUTSIDE RECORDS SUMMARY | 2024-07-01 17:10 | XMS_ITS | Continuity of Care Document ---
Author Organization [facility] Adult Address [address] [place] [address]- Care Team Providers Care Chemistry Account Manager Name Role Phone Oscar MCMANUS, Alba Primary Care Physician Encounter [facility] Date(s): 05/30/24 - 06/29/24 [facility] Adult [address] [place] [phone]- Allergies, Adverse Reactions, Alerts Substance Reaction Severity Status Bactrim Active Latex Active Seafood Active Avocado Active Kiwi Active sulfa drugs Active iodinated radiocontrast dyes Active Cipro hives Active Macrobid Hives Active Other Environmental Allergy Active iodine Active [...] Re corded influenza virus vaccine, inactivated 07/05/18 Rgady rded influenza virus vaccine, inactivated 09/24/17 Grady [...] Diphth-Tetanus Toxoids Adsorbed(oldterm) 08/22/08 Given 1Result Comment: [facility] [phone] 2Result Comment: [facility] [id number] 3Admin Note: [facility] 4Admin Note: sarah 5Result Comment: [id number] 6Admin Note: [facility] Medications Albuterol (Eqv-Ventolin HFA) 90 mcg/inh inhalation aerosol See Instructions, INHALE 2 PUFFS BY MOUTH EVERY 4 HOURS NEEDED FOR WHEEZING OR SHORTNESS OF BREATH, # 18 each, 5 Refills, Maintenance, 02/22/24 17:04:00 EDT, [facility] 537[facility], 30, INHALE 2 PUFFS BYMOUTH EVERY 4 HOURS NEEDED FOR WHEEZING OR SHORT... Start Date: 02/22/24 Status: Ordered ClearLax oral powder for reconstitution 1 scoop, By Mouth, Daily, PRN Constipation, dissolve in water or juice, # 527 Gm, 5 Refills, Maintenance, 05/30/24 12:21:00 EDT, [facility]/pharmacy #[id number], 1 scoop By Mouth Daily,PRN:Constipation,Instr:dissolve in water or juice, 158, cm, 05/30/24 12:11:00 E... Start Date: 05/30/24 Status: Ordered EpiPen 2-Mionr 0.3 mg injectable kit See Instructions, Intramuscular Once, # 1 each, 1 Refills, Soft Stop, 07/08/21 14:29:00 EDT, [facility] #[id number], 158, cm, 06/28/21 11:31:00 EDT, Height, 65.7, kg, 06/16/21 13:22:00 EDT, Dry Weight Start Date: 07/08/21 Status: Ordered Estrace Vaginal Cream 0.1 mg/g See Instructions, 1 gram Vaginally at bedtime twice per week, # 42 Gm, 4 Refills, Maintenance, 05/24/24 11:21:00 EDT, [facility]/pharmacy #[id number], Partial [...] Weight Start Date: 03/21/24 Status: Ordered Myrbetriq 50 mg oral tablet, extended release 1 tablet = 50 mg, By Mouth, Daily, do not crush or chew, # 30 tablet, 5 Refills, Maintenance, 06/24/24 14:41:00 EDT, ER Tablet, [facility]/pharmacy #[id number], Partial fill upon patient request if the prescription is for a schedule II opioid drug., 158, cm, 06/24... Start Date: 06/24/24 Status: Ordered Narcan 4 mg/0.1 mL nasal spray = 4 mg, Nares, Both, Once, may repeat every 2 to 3 minutes until patient responds, # 1 each, 0 Refills, Soft Stop, 11/25/22 9:21:00 EST, [facility] #[id number], Partial fill upon patient requestif the prescription is for a schedule II opioid alva... Start Date: 11/25/22 Status: Ordered omeprazole 20 mg oral enteric coated capsule 1 capsule, By Mouth, Daily, # 90 capsule, 1 Refills, Maintenance, 05/16/24 10:34:00 EDT, [facility] STORE [id number], 158, cm, 05/08/24 10:56:00 EDT, Height, 63.5, kg, 07/09/23 13:09:00 EDT, Dry Weight Start Date: 05/16/24 Status: Ordered oxyCODONE 10 mg oral tablet See Instructions, 0.5-1 tablet By Mouth Every 4 hours, max 4 tabs in 24 hours, # 112 tablet, 0 Refills, Maintenance, 06/14/24 19:24:00 EDT, [facility]/pharmacy #[id number], 158, cm, 06/03/24 7:47:00 EDT, Height, 63.5, kg, 07/09/23 13:09:00 EDT, Dry Weight, 4, tablet Start Date: 06/14/24 Status: Ordered OxyCONTIN 10 mg oral tablet, extended release 10 mg, 1, tablet, By Mouth, Every 12 hours, CALENDAR, # 56 tablet, Refills 0, Tot. Refills 0, Maintenance, 06/14/24 19:24:00 EDT, [id number] Partial fill upon patient request; CALENDAR, [...] 05/09/24 15:49:00 EDT, Route to Pharmacy Electronically, [facility] STORE [id number], 158, cm, 05/08/24 10:56:00 EDT, Height, 63.5, [...] Confirmed 2002 Active Fibromyalgia Confirmed 1999 Active Cognitive impairment Confirmed Active Depression Confirmed 2002 Active Multiple pulmonary nodules, 0.2 cm Confirmed 2018 Active Alcohol Abuse, in Remission Confirmed Active OA - Osteoarthritis of knee Confirmed Active Osteopenia Confirmed 2008 Active Overactive bladder Confirmed Active Pituitary microadenoma, 4mm Confirmed 2020 Active residential prescription opiate use Confirmed Active Raynaud's syndrome Confirmed Active Restless legs syndrome Confirmed 2003 Active Solitary pulmonary nodule Confirmed Active Social History Social History Type Response Smoking Status Former smoker; Other : quit 1988; entered on: 02/14/15 Sex Patient Care team information Care Team Personnel Name: Kaykay Craft [place] Position: [facility] Office Staff Member Role: Primary Care Nurse Name: Liudmila Andujar Position: [facility] Propeller Driven Airplane Mechanic Member Role: Inspector Balance Wheel Motion Name: Oscar MCMANUS, Alba Position: [facility] Physician - Primary Care Member Role: PCP Address: Address: [address] [place] [phone]- Name: Traci Adler RN Position: [facility] SN RN Member Role: Primary Care Nurse Care Team Related Persons Name: R[place] VELASQUEZ Address: home [address] [place] [address] Name: OMI VELASQUEZ Address: home [address] [place] [address] Name: ANGELA VELASQUEZ Address: home [address] [place] [address]
--- OUTSIDE RECORDS SUMMARY | 2024-07-01 17:10 | XMS_ITS | Continuity of Care Document ---
Author Organization [facility] Adult Address [address] [place] [address]- Care Team Providers Care Neuroscience Director Na Name Role Phone Oscar MCMANUS, Alba Primary Care Physician [place] [facility] [place] 06/16/23 - 10/14/23 [facility] Adult [address] [place] [address]- Attending Physician: Not on Staff, Attending MD Referring Physician: Oscar MCMANUS, Alba Allergies, Adverse Reactions, [...] Grady rded influenza virus vaccine, inactivated 10/18/15 Grayd rded influenza virus vaccine, inactivated 07/18/13 Give [...] Diphth-Tetanus Toxoids Adsorbed(oldterm) 08/22/08 Given 1Result Comment: [facility] [id number] 2Admin Note[facility] 3Admin Note: sarah 4Result Comment: [id number] 5Admin Note: [facility] Medications ClearLax oral powder for reconstitution 1 scoop, By Mouth, Daily, PRN Constipation, dissolve in water or juice, # 527 Gm, 5 Refills, Maintenance, 11/25/19 12:24:00 EST, [facility] #[id number], 1 scoop By Mouth Daily,PRN:Constipation,Instr:dissolve in water or juice, 158, cm, 09/30/19 1... Start Date: 11/25/19 Status: Ordered EpiPen 2-Minor 0.3 mg injectable kit See Instructions, Intramuscular Once, # 1 each, 1 Refills, Soft Stop, 07/08/21 14:29:00 EDT, [facility] #[id number], 158, cm, 06/28/21 11:31:00 EDT, Height, 65.7, kg, 06/16/21 13:22:00 EDT, Dry Weight Start Date: 07/08/21 Status: Ordered Estrace Vaginal Cream 0.1 mg/g 1 gram, Vaginally, Daily at bedtime, Apply daily at bedtime for 2 weeks and then 2 times per week, # 42 Gm, 3 Refills, Maintenance, 07/15/23 15:07:00 EDT, [facility] #[id number], 158, cm, 07/15/23 14:57:00 EDT, Height, 63.5, kg, 07/09/23 13:09:00... Start Date: 07/15/23 Status: Ordered ibuprofen 600 mg oral tablet 1, tablet, By Mouth, 3 times a day, # 90 tablet, Refills 3, Tot. Refills 3, Maintenance, 05/04/23 14:23:00 EDT, Route to Pharmacy Electronically, [facility] #[id number], 158, cm, 04/01/23 7:42:00 EDT, Height, 64, kg, 07/10/21 9:37:00 EDT, Dry Weight Start Date: 05/04/23 Status: Ordered Myrbetriq 25 mg oral tablet, extended release 1 tablet = 25 mg, By Mouth, Daily, # 30 tablet, 5 Refills, Maintenance, 07/15/23 15:07:00 EDT, [facility] #[id number], Partial fill upon patient request if the prescription is for a schedule II opioid drug., 158, cm, 07/15/23 14:57:00 EDT, Height... Start Date: 07/15/23 Status: Ordered Narcan 4 mg/0.1 mL nasal spray = 4 mg, Nares, Both, Once, may repeat every 2 to 3 minutes until patient responds, # 1 each, 0 Refills, Soft Stop, 11/25/22 9:21:00 EST, [facility] #[id number], Partial fill upon patient requestif the prescription [...] tablet, 0 Refills, Maintenance, 09/23/23 13:18:00 EST, [facility] #[id number], CALENDAR, 158, cm, 07/15/23 15:12:00 EDT, Height, 63.5, kg, 07/09/23 13:... Start Date: 09/23/23 Status: Ordered OxyCONTIN 10 mg oral tablet, extended release 10 mg, 1, tablet, By Mouth, Every 12 hours, CALENDAR, # 56 tablet, Refills 0, Tot. Refills 0, Maintenance, 09/23/23 13:18:00 EST, Route to Pharmacy Electronically, [facility] #[id number], Partial fill upon patient request; CALENDAR, 158, cm, ... Start Date: 09/23/23 Status: Ordered Ventolin HFA 108 mcg/inh inhalation aerosol with adapter 2 puffs, Inhalation, Every 4 hours, PRN Wheezing/Shortness of Breath, # 1 each, 5 Refills, Maintenance, 05/20/23 12:01:00 EDT, [facility] #[id number], Asthma J45.909;, 158, cm, 04/01/23 7:42:00 EDT, Height, 64, kg, 07/10/21 9:37:00 EDT, Dry Weight Start Date: 05/20/23 Status: Ordered Wellbutrin XL 150 mg/24 hours oral tablet, extended release 1 tablet = 150 mg, By Mouth, Every 24 hours, # 30 tablet, 1 Refills, Maintenance, 07/15/23 15:14:00EDT, ER Tablet, [facility] #[id number], Partial fill upon patient request if the [...] Team Personnel Name: Kaykay Craft [place] Position: [facility] RN Member Role: Primary Care Nurse Name: Alba Moore MD Position: [facility] Physician - Primary Care Member Role: PCP Address: Address: [address] [place] [address]- Name: Traci Adler RN Position: [facility] Strike Operations Officer Member Role: Primary Care Nurse Care Team Related Persons Name: ROGERS VELASQUEZ Address: home [address] [place] [address] Name: OMI VELASQUEZ Address: home [address] [place] [address] Name: ANGELA VELASQUEZ Address: home [address] [place] [address]
--- OUTSIDE RECORDS SUMMARY | 2024-07-01 17:10 | XMS_ITS | Continuity of Care Document ---
Author Organization [facility] Address [address] [place] [address]- Care Team Providers Care Ore Roaster Name Role Phone Oscar MCMANUS, Alba Primary Care Physician Encounter [facility] Date(s): 12/09/23 - 01/08/24 [facility] [address] [place] [address]- Attending Physician: Admtr, Ar8 Allergies, Adverse Reactions, [...] 08/22/08 Given 1Result Comment: [facility] [id number] 2Admin Note: [facility] 3Admin Note: sarah 4Result Comment: [id number] 5Admin Note: [facility] Medications ClearLax oral powder for reconstitution 1 scoop, By Mouth, Daily, PRN Constipation, dissolve in water or juice, # 527 Gm, 5 Refills, Maintenance, 11/25/19 12:24:00 EST, [facility] #[id number], 1 scoop By Mouth Daily,PRN:Constipation,Instr:dissolve in water or juice, 158, cm, 09/30/19 1... Start Date: 11/25/19 Status: Ordered EpiPen 2-Minor 0.3 mg injectable kit See Instructions, Intramuscular Once, # 1 each, 1 Refills, Soft Stop, 07/08/21 14:29:00 EDT, [facility] #[id number], 158, cm, 06/28/21 11:31:00 EDT, Height, 65.7, kg, 06/16/21 13:22:00 EDT, Dry Weight Start Date: 07/08/21 Status: Ordered Estrace Vaginal Cream 0.1 mg/g 1 gram, Vaginally, Daily at bedtime, Apply daily at bedtime for 2 weeks and then 2 times per week, # 42 Gm, 3 Refills, Maintenance, 07/15/23 15:07:00 EDT, [facility] #[id number], 158, cm, 07/15/23 14:57:00 EDT, Height, 63.5, [...] 05/04/23 14:23:00 EDT, Route to Pharmacy Electronically, [facility] #[id number], 158, cm, 04/01/23 7:42:00 EDT, Height, 64, kg, 07/10/21 9:37:00 EDT, Dry Weight Start Date: 05/04/23 Status: Ordered Myrbetriq 25 mg oral tablet, extended release 1 tablet = 25 mg, By Mouth, Daily, # 30 tablet, 5 Refills, Maintenance, 07/15/23 15:07:00 EDT, [facility] #75031, Partial fill upon patient request if the prescription is for a schedule II opioid drug., 158, cm, 07/15/23 14:57:00 EDT, Height... Start Date: 07/15/23 Status: Ordered Narcan 4 mg/0.1 mL nasal spray = 4 mg, Nares, Both, Once, may repeat every 2 to 3 minutes until patient responds, # 1 each, 0 Refills, Soft Stop, 11/25/22 9:21:00 EST, [facility] #[id number], Partial fill upon patient requestif the prescription [...] tablet, 0 Refills, Maintenance, 12/17/23 15:39:00 EST, [facility], CALENDAR, 158, cm, 12/07/23 12:03:00 EST, Height, 63.5, kg, 07/09/23 13:09:... Start Date: 12/17/23 Stop Date: 12/19/23 Status: Ordered oxyCODONE 10 mg oral tablet See Instructions, CALENDAR. 0.5-1 tablet By Mouth Every 4 hours, max 4 tabs in 24 hours, # 112 tablet, 0 Refills, Maintenance, 12/16/23 12:47:00 EST, [facility]/pharmacy #[id number], CALENDAR, 158, cm, 12/07/23 12:03:00 EST, Height, 63.5, kg, 07/09/23 13:09:00 EDT... Start Date: 12/16/23 Status: Ordered OxyCONTIN 10 mg oral tablet, extended release 10 mg, 1, tablet, By Mouth, Every 12 hours, CALENDAR, # 56 tablet, Refills 0, Tot. Refills 0, Maintenance, 12/17/23 15:39:00 EST, Route to Pharmacy Electronically, [facility] 3, Partial fill upon patient request; CALENDAR, 158, cm, ... Start Date: 12/17/23 Stop Date: 12/19/23 Status: Ordered OxyCONTIN 10 mg oral tablet, extended release 10 mg, 1, tablet, By Mouth, Every 12 hours, CALENDAR, # 56 tablet, Refills 0, Tot. Refills 0, Maintenance, 12/16/23 12:47:00 EST, Route to Pharmacy Electronically, [facility]/pharmacy #[id number], Partial fill upon patient request; CALENDAR, 158, cm, 12/07/23 12:0... Start Date: 12/16/23 Status: Ordered simvastatin 20 mg oral tablet 20 mg, 1, tablet, By Mouth, Daily at bedtime, # 90 tablet, Refills 1, Tot. Refills 1, Maintenance, 12/07/23 13:01:00 EST, Route to Pharmacy Electronically, [facility]/pharmacy #[id number], Partial fill upon patient request if the prescription is for a schedule II... Start Date: 12/07/23 Status: Ordered traZODone 100 mg oral tablet 100 mg, 1, tablet, By Mouth, Daily at bedtime, PRN, # 30 tablet, Refills 1, Tot. Refills 1, Maintenance, Sleep, 11/09/23 9:29:00 EST, Route to Pharmacy Electronically, [facility] #[id number], Partial fill upon patient request if the prescription... Start Date: 11/09/23 Status: Ordered Ventolin HFA 108 mcg/inh inhalation aerosol with adapter 2 puffs, Inhalation, Every 4 hours, PRN Wheezing/Shortness of Breath, # 1 each, 5 Refills, Maintenance, 05/20/23 12:01:00 EDT, [facility] #[id number], Asthma J45.909;, 158, cm, 04/01/23 7:42:00 EDT, [...] Team Personnel Name: Kaykay Craft [place] Position: [facility] RN Member Role: Primary Care Nurse Name: Alba Moore MD Position: [facility] Physician - Primary Care Member Role: PCP Address: Address: [address] [place] [address] [address] [place] [address]- Name: Vitor MILLER, Traci Position: [facility] Hospital Rod Welder Member Role: Primary Care Nurse Care Team Related Persons Name: ROGERS VELASQUEZ Address: [address] [place] [address] Name: OMI VELASQUEZ Address: [address] [place] [address] Name: ANGELA VELASQUEZ Address: home [address] [place] [address]
--- OUTSIDE RECORDS SUMMARY | 2024-07-01 17:10 | XMS_ITS | Continuity of Care Document ---
Author Organization [facility] n[facility] Address [address], [address] [place] [address]- Care Team Providers Care Carbon Setter Name Role Phone Oscar MCMANUS, Alba Primary Care Physician Encounter [facility] [place] Date(s): 12/09/23 - 01/08/24 [facility] [place] [employer] [facility] [address], [address]th [address] [place], [place] [address] Attending Physician: Admtr, Ar8 [...] Given 1Result Comment: [facility] [id number] 2Admin Note: [facility] 3Admin Note: sarah 4Result Comment: [id number] 5Admin Note: [facility] Medications ClearLax oral powder for reconstitution 1 scoop, By Mouth, Daily, PRN Constipation, dissolve in water or juice, # 527 Gm, 5 Refills, Maintenance, 11/25/19 12:24:00 EST, [facility] #[id number], 1 scoop By Mouth Daily,PRN:Constipation,Instr:dissolve in water or juice, 158, cm, 09/30/19 1... Start Date: 11/25/19 Status: Ordered EpiPen 2-Minor 0.3 mg injectable kit See Instructions, Intramuscular Once, # 1 each, 1 Refills, Soft Stop, 07/08/21 14:29:00 EDT, [facility] #[id number], 158, cm, 06/28/21 11:31:00 EDT, Height, 65.7, kg, 06/16/21 13:22:00 EDT, Dry Weight Start Date: 07/08/21 Status: Ordered Estrace Vaginal Cream 0.1 mg/g 1 gram, Vaginally, Daily at bedtime, Apply daily at bedtime for 2 weeks and then 2 times per week, # 42 Gm, 3 Refills, Maintenance, 07/15/23 15:07:00 EDT, [facility] #[id number], 158, cm, 07/15/23 14:57:00 EDT, Height, 63.5, [...] 05/04/23 14:23:00 EDT, Route to Pharmacy Electronically, [facility] #[id number], 158, cm, 04/01/23 7:42:00 EDT, Height, 64, kg, 07/10/21 9:37:00 EDT, Dry Weight Start Date: 05/04/23 Status: Ordered Myrbetriq 25 mg oral tablet, extended release 1 tablet = 25 mg, By Mouth, Daily, # 30 tablet, 5 Refills, Maintenance, 07/15/23 15:07:00 EDT, [facility] #[id number], Partial fill upon patient request if the prescription is for a schedule II opioid drug., 158, cm, 07/15/23 14:57:00 EDT, Height... Start Date: 07/15/23 Status: Ordered Narcan 4 mg/0.1 mL nasal spray = 4 mg, Nares, Both, Once, may repeat every 2 to 3 minutes until patient responds, # 1 each, 0 Refills, Soft Stop, 11/25/22 9:21:00 EST, [facility] #[id number], Partial fill upon patient requestif the prescription [...] tablet, 0 Refills, Maintenance, 12/17/23 15:39:00 EST, [facility], CALENDAR, 158, cm, 12/07/23 12:03:00 EST, Height, 63.5, kg, 07/09/23 13:09:... Start Date: 12/17/23 Stop Date: 12/19/23 Status: Ordered oxyCODONE 10 mg oral tablet See Instructions, CALENDAR. 0.5-1 tablet By Mouth Every 4 hours, max 4 tabs in 24 hours, # 112 tablet, 0 Refills, Maintenance, 12/16/23 12:47:00 EST, [facility]/pharmacy #[id number], CALENDAR, 158, cm, 12/07/23 12:03:00 EST, Height, 63.5, kg, 07/09/23 13:09:00 EDT... Start Date: 12/16/23 Status: Ordered OxyCONTIN 10 mg oral tablet, extended release 10 mg, 1, tablet, By Mouth, Every 12 hours, CALENDAR, # 56 tablet, Refills 0, Tot. Refills 0, Maintenance, 12/17/23 15:39:00 EST, Route to Pharmacy Electronically, [facility], Partial fill upon patient request; CALENDAR, 158, cm, ... Start Date: 12/17/23 Stop Date: 12/19/23 Status: Ordered OxyCONTIN 10 mg oral tablet, extended release 10 mg, 1, tablet, By Mouth, Every 12 hours, CALENDAR, # 56 tablet, Refills 0, Tot. Refills 0, Maintenance, 12/16/23 12:47:00 EST, Route to Pharmacy Electronically, [facility]/pharmacy #[id number], Partial fill upon patient request; CALENDAR, 158, cm, 12/07/23 12:0... Start Date: 12/16/23 Status: Ordered simvastatin 20 mg oral tablet 20 mg, 1, tablet, By Mouth, Daily at bedtime, # 90 tablet, Refills 1, Tot. Refills 1, Maintenance, 12/07/23 13:01:00 EST, Route to Pharmacy Electronically, [facility]/pharmacy #[id number], Partial fill upon patient request if the prescription is for a schedule II... Start Date: 12/07/23 Status: Ordered traZODone 100 mg oral tablet 100 mg, 1, tablet, By Mouth, Daily at bedtime, PRN, # 30 tablet, Refills 1, Tot. Refills 1, Maintenance, Sleep, 11/09/23 9:29:00 EST, Route to Pharmacy Electronically, [facility] #[id number], Partial fill upon patient request if the prescription... Start Date: 11/09/23 Status: Ordered Ventolin HFA 108 mcg/inh inhalation aerosol with adapter 2 puffs, Inhalation, Every 4 hours, PRN Wheezing/Shortness of Breath, # 1 each, 5 Refills, Maintenance, 05/20/23 12:01:00 EDT, [facility] #[id number], Asthma J45.909;, 158, cm, 04/01/23 7:42:00 EDT, [...] Event Display: Radiology Results Scanned Authored Date: [id number] Note * Aziza Henderson: PERFORM, SIGN, VERIFY Event Display: Patient Education/Instruction Authored Date: [id number] [facility] SENIOR SQL DBA Clinical Summary Person Information Name EMMA VELASQUEZ [...] primary care provider, you may find a [facility] provider by calling [facility] at [phone]. Patient Education Information Follow-up Details: Patient Education Material: Patient Care team information Care Team Personnel Name: Kayaky Craft [place] Position: [facility] RN Member Role: Primary Care Nurse Name: Alba Moore MD Position: [facility] Physician - Primary Care Member Role: PCP Address: Address: [address] [place] [address] [address] [place] [address]- Name: Traci Adler RN Position: [facility] Hospital Spine Surgeon Member Role: Primary Care Nurse Care Team Related Persons Name: ROGERS VELASQUEZ Address: home [address] [place] [address] Name: OMI VELASQUEZ Address: home [address] [place] [address] Name: ANGELA VELASQUEZ Address: home [address] [place] [address]
--- OUTSIDE RECORDS SUMMARY | 2024-07-01 17:10 | XMS_ITS | Continuity of Care Document ---
Author Organization [facility] Adult Address [address] [place] [address]- Care Team Providers Care Senior Software Test Engineer Name Role Phone Oscar MCMANUS, Alba Primary Care Physician Encounter [facility] [place] Date(s): 11/26/23 - 12/26/23 [facility] Adult [address] [place] [id number]- Allergies, Adverse Reactions, Alerts Substance Reaction Severity [...] Diphth-Tetanus Toxoids Adsorbed(oldterm) 08/22/08 Given 1Result Comment: [facility] [id number] 2Admin Note: [facility] 3Admin Note: sarah 4Result Comment: [id number] 5Admin Note: [facility] Medications ClearLax oral powder for reconstitution 1 scoop, By Mouth, Daily, PRN Constipation, dissolve in water or juice, # 527 Gm, 5 Refills, Maintenance, 11/25/19 12:24:00 EST, [facility] #[id number], 1 scoop By Mouth Daily,PRN:Constipation,Instr:dissolve in water or juice, 158, cm, 09/30/19 1... Start Date: 11/25/19 Status: Ordered EpiPen 2-Minor 0.3 mg injectable kit See Instructions, Intramuscular Once, # 1 each, 1 Refills, Soft Stop, 07/08/21 14:29:00 EDT, [facility] #[id number], 158, cm, 06/28/21 11:31:00 EDT, Height, 65.7, kg, 06/16/21 13:22:00 EDT, Dry Weight Start Date: 07/08/21 Status: Ordered Estrace Vaginal Cream 0.1 mg/g 1 gram, Vaginally, Daily at bedtime, Apply daily at bedtime for 2 weeks and then 2 times per week, # 42 Gm, 3 Refills, Maintenance, 07/15/23 15:07:00 EDT, [facility] #[id number], 158, cm, 07/15/23 14:57:00 EDT, Height, 63.5, [...] 05/04/23 14:23:00 EDT, Route to Pharmacy Electronically, [facility] #[id number], 158, cm, 04/01/23 7:42:00 EDT, Height, 64, kg, 07/10/21 9:37:00 EDT, Dry Weight Start Date: 05/04/23 Status: Ordered Myrbetriq 25 mg oral tablet, extended release 1 tablet = 25 mg, By Mouth, Daily, # 30 tablet, 5 Refills, Maintenance, 07/15/23 15:07:00 EDT, [facility] #[id number], Partial fill upon patient request if the prescription is for a schedule II opioid drug., 158, cm, 07/15/23 14:57:00 EDT, Height... Start Date: 07/15/23 Status: Ordered Narcan 4 mg/0.1 mL nasal spray = 4 mg, Nares, Both, Once, may repeat every 2 to 3 minutes until patient responds, # 1 each, 0 Refills, Soft Stop, 11/25/22 9:21:00 EST, [facility] #[id number], Partial fill upon patient requestif the prescription [...] tablet, 0 Refills, Maintenance, 12/17/23 15:39:00 EST, [facility], CALENDAR, 158, cm, 12/07/23 12:03:00 EST, Height, 63.5, kg, 07/09/23 13:09:... Start Date: 12/17/23 Stop Date: 12/19/23 Status: Ordered oxyCODONE 10 mg oral tablet See Instructions, CALENDAR. 0.5-1 tablet By Mouth Every 4 hours, max 4 tabs in 24 hours, # 112 tablet, 0 Refills, Maintenance, 12/16/23 12:47:00 EST, [facility]/pharmacy #[id number], CALENDAR, 158, cm, 12/07/23 12:03:00 EST, Height, 63.5, kg, 07/09/23 13:09:00 EDT... Start Date: 12/16/23 Status: Ordered OxyCONTIN 10 mg oral tablet, extended release 10 mg, 1, tablet, By Mouth, Every 12 hours, CALENDAR, # 56 tablet, Refills 0, Tot. Refills 0, Maintenance, 12/17/23 15:39:00 EST, Route to Pharmacy Electronically, [facility], Partial fill upon patient request; CALENDAR, 158, cm, ... Start Date: 12/17/23 Stop Date: 12/19/23 Status: Ordered OxyCONTIN 10 mg oral tablet, extended release 10 mg, 1, tablet, By Mouth, Every 12 hours, CALENDAR, # 56 tablet, Refills 0, Tot. Refills 0, Maintenance, 12/16/23 12:47:00 EST, Route to Pharmacy Electronically, [facility]/pharmacy #[id number], Partial fill upon patient request; CALENDAR, 158, cm, 12/07/23 12:0... Start Date: 12/16/23 Status: Ordered simvastatin 20 mg oral tablet 20 mg, 1, tablet, By Mouth, Daily at bedtime, # 90 tablet, Refills 1, Tot. Refills 1, Maintenance, 12/07/23 13:01:00 EST, Route to Pharmacy Electronically, [facility]/pharmacy #[id number], Partial fill upon patient request if the prescription is for a schedule II... Start Date: 12/07/23 Status: Ordered traZODone 100 mg oral tablet 100 mg, 1, tablet, By Mouth, Daily at bedtime, PRN, # 30 tablet, Refills 1, Tot. Refills 1, Maintenance, Sleep, 11/09/23 9:29:00 EST, Route to Pharmacy Electronically, [facility] #[id number], Partial fill upon patient request if the prescription... Start Date: 11/09/23 Status: Ordered Ventolin HFA 108 mcg/inh inhalation aerosol with adapter 2 puffs, Inhalation, Every 4 hours, PRN Wheezing/Shortness of Breath, # 1 each, 5 Refills, Maintenance, 05/20/23 12:01:00 EDT, [facility] #[id number], Asthma J45.909;, 158, cm, 04/01/23 7:42:00 EDT, [...] Team Personnel Name: Kaykay Craft [place] Position: [facility] RN Member Role: Primary Care Nurse Name: Alba Moore MD Position: [facility] Physician - Primary Care Member Role: PCP Address: Address: [address] [place] [address] [address]rd [place] [address]- Name: Traci Adler RN Position: [facility] Hospital Acquisitions Editor Member Role: Primary Care Nurse Care Team Related Persons Name: ROGERS VEALSQUEZ Address: [address] [place] [address] Name: OMI VELASQUEZ Address: home [address] [place] [address] Name: ANGELA VELASQUEZ Address: home [address] [place] [address]
--- OUTSIDE RECORDS SUMMARY | 2024-07-01 17:10 | XMS_ITS | Continuity of Care Document ---
Author Organization [facility] Adult Address [address] [place] [address]- Care Team Providers Care Electrode Cleaner Name Role Phone Oscar MCMANUS, Alba Primary Care Physician Encounter [facility] [place] Date(s): 04/19/24 - 05/19/24 [facility] Adult [address] [place] [phone]- Allergies, Adverse Reactions, Alerts Substance Reaction Severity [...] Toxoids Adsorbed(oldterm) 08/22/08 Given 1Result Comment: [facility] [id number] 2Admin Note: [facility] 3Admin Note: sarah 4Result Comment: [id number] 5Admin Note: [facility] Medications Albuterol (Eqv-Ventolin HFA) 90 mcg/inh inhalation aerosol See Instructions, INHALE 2 PUFFS BY MOUTH EVERY 4 HOURS NEEDED FOR WHEEZING OR SHORTNESS OF BREATH, # 18 each, 5 Refills, Maintenance, 02/22/24 17:04:00 EDT, [facility] [id number], 30, INHALE 2 PUFFS BYMOUTH EVERY 4 HOURS NEEDED FOR WHEEZING OR SHORT... Start Date: 02/22/24 Status: Ordered ClearLax oral powder for reconstitution 1 scoop, By Mouth, Daily, PRN Constipation, dissolve in water or juice, # 527 Gm, 5 Refills, Maintenance, 11/25/19 12:24:00 EST, [facility] #[id number], 1 scoop By Mouth Daily,PRN:Constipation,Instr:dissolve in water [...] 1 Refills, Soft Stop, 07/08/21 14:29:00 EDT, [facility] #[id number], 158, cm, 06/28/21 11:31:00 EDT, Height, 65.7, kg, 06/16/21 13:22:00 EDT, Dry Weight Start Date: 07/08/21 Status: Ordered Estrace Vaginal Cream 0.1 mg/g 1 gram, Vaginally, Daily at bedtime, Apply daily at bedtime for 2 weeks and then 2 times per week, # 42 Gm, 3 Refills, Maintenance, 03/21/24 9:38:00 EDT, [facility]/pharmacy #[id number], 158, cm, 02/18/24 10:21:00 EDT, [...] 03/21/24 9:38:00 EDT, Route to Pharmacy Electronically, [facility]/pharmacy #[id number], 158, cm, 02/18/24 10:21:00 EDT, Height, 63.5, kg, 07/09/23 13:09:00 EDT, Dry Weight Start Date: 03/21/24 Status: Ordered Myrbetriq 25 mg oral tablet, extended release 1 tablet = 25 mg, By Mouth, Daily, # 30 tablet, 5 Refills, Maintenance, 03/21/24 9:38:00 EDT, [facility]/pharmacy #[id number], Partial fill upon patient request if the prescription is for a schedule II opioid drug., 158, cm, 02/18/24 10:21:00 EDT, Height, 63.5, kg... Start Date: 03/21/24 Status: Ordered Narcan 4 mg/0.1 mL nasal spray = 4 mg, Nares, Both, Once, may repeat every 2 to 3 minutes until patient responds, # 1 each, 0 Refills, Soft Stop, 11/25/22 9:21:00 EST, [email or web address] #[id number], Partial fill upon patient requestif the prescription is for a schedule II opioid alva... Start Date: 11/25/22 Status: Ordered omeprazole 20 mg oral enteric coated capsule 1 capsule, By Mouth, Daily, # 90 capsule, 1 Refills, Maintenance, 05/16/24 10:34:00 EDT, [id number], 158, cm, 05/08/24 10:56:00 EDT, Height, 63.5, kg, 07/09/23 13:09:00 EDT, Dry Weight Start Date: 05/16/24 Status: Ordered oxyCODONE 10 mg oral tablet See Instructions, 0.5-1 tablet By Mouth Every 4 hours, max 4 tabs in 24 hours, # 112 tablet, 0 Refills, Maintenance, 05/17/24 10:12:00 EDT, [facility]/pharmacy #[id number], 158, cm, 05/08/24 10:56:00 EDT, Height,63.5, kg, 07/09/23 13:09:00 EDT, Dry Weight, 4, tablet Start Date: 05/17/24 Status: Ordered OxyCONTIN 10 mg oral tablet, extended release 10 mg, 1, tablet, By Mouth, Every 12 hours, CALENDAR, # 56 tablet, Refills 0, Tot. Refills 0, Maintenance, 05/17/24 10:12:00 EDT, Route to Pharmacy Electronically, [facility]/pharmacy #[id number], Partial fill upon patient request; CALENDAR, 158, cm, 05/08/24 10:5... Start Date: 05/17/24 Status: Ordered simvastatin 20 mg oral tablet 20 mg, 1, tablet, By Mouth, Daily at bedtime, # 90 tablet, Refills 1, Tot. Refills 1, Maintenance, 02/22/24 13:47:00 EDT, Route to Pharmacy Electronically, [facility]/pharmacy #[id number], Partial fill upon patient request if the prescription is for a schedule II... 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 Office Staff Member Role: Primary Care Nurse Name: Liudmila Andujar Position: [facility] Transportation Planning Technician Member Role: Animal Care Giver Name: Alba Moore MD Position: [facility] Physician - Primary Care Member Role: PCP Address: Address: [address] [place] [address] [address] [place] [address]- Name: Traci Adler RN Position: [facility] RN Member Role: Primary Care Nurse Care Team Related Persons Name: ROGERS VELASQUEZ Address: home [address] [place] [address] Name: OMI VELASQUEZ Address: home [address] [place] [address] Name: ANGELA VELASQUEZ Address: home [address] [place] [address]
--- OUTSIDE RECORDS SUMMARY | 2024-07-01 17:10 | XMS_ITS | Continuity of Care Document ---
Author Organization [facility] Address [address] [place] [address]- Care Team Providers Care Special Effects Technician Name Role Phone Oscar MCMANUS, Alba Primary Care Physician Encounter [facility] Date(s): 05/08/24 - 06/07/24 [facility] [address] [place] [address]- Attending Physician: Silvia Ross Admitting Physician: AdmtrSilvia Referring Physician: Admtr, Ar8 Allergies, Adverse Reactions, Alerts Substance Reaction Severity Status sulfa drugs Active Cipro hives Active Macrobid Hives Active Latex Active iodine Active Avocado Active Kiwi Active Bananas Active iodinated radiocontrast dyes Active Bactrim Active [...] Given 1Result Comment: [facility] [id number] 2Result Comment: [facility] [id number] 3Admin Note: [facility] 4Admin Note: sarah 5Result Comment: [id number] 6Admin Note: [facility] Medications Albuterol (Eqv-Ventolin HFA) 90 mcg/inh inhalation aerosol See Instructions, INHALE 2 PUFFS BY MOUTH EVERY 4 HOURS NEEDED FOR WHEEZING OR SHORTNESS OF BREATH, # 18 each, 5 Refills, Maintenance, 02/22/24 17:04:00 EDT, [facility], 30, INHALE 2 PUFFS BYMOUTH EVERY 4 HOURS NEEDED FOR WHEEZING OR SHORT... Start Date: 02/22/24 Status: Ordered ClearLax oral powder for reconstitution 1 scoop, By Mouth, Daily, PRN Constipation, dissolve in water or juice, # 527 Gm, 5 Refills, Maintenance, 05/30/24 12:21:00 EDT, [facility]/pharmacy #[id number], 1 scoop By Mouth Daily,PRN:Constipation,Instr:dissolve in water or juice, 158, cm, 05/30/24 12:11:00 E... Start Date: 05/30/24 Status: Ordered EpiPen 2-Minor 0.3 mg injectable kit See Instructions, Intramuscular Once, # 1 each, 1 Refills, Soft Stop, 07/08/21 14:29:00 EDT, [email or web address] #[id number], 158, cm, 06/28/21 11:31:00 EDT, Height, 65.7, kg, 06/16/21 13:22:00 EDT, Dry Weight Start Date: 07/08/21 Status: Ordered Estrace Vaginal Cream 0.1 mg/g See Instructions, 1 gram Vaginally at bedtime twice per week, # 42 Gm, 4 Refills, Maintenance, 05/24/24 11:21:00 EDT, [facility]/pharmacy #[id number], Partial fill upon patient request [...] 9:38:00 EDT, Route to Pharmacy Electronically, [facility]/pharmacy #[id number], 158, cm, 02/18/24 10:21:00 EDT, Height, 63.5, kg, 07/09/23 13:09:00 EDT, Dry Weight Start Date: 03/21/24 Status: Ordered Myrbetriq 25 mg oral tablet, extended release 1 tablet = 25 mg, By Mouth, Daily, # 30 tablet, 5 Refills, Maintenance, 03/21/24 9:38:00 EDT, [facility]/pharmacy #[id number], Partial fill upon patient request if the prescription is for a schedule II opioid drug., 158, cm, 02/18/24 10:21:00 EDT, Height, 63.5, kg... Start Date: 03/21/24 Status: Ordered Narcan 4 mg/0.1 mL nasal spray = 4 mg, Nares, Both, Once, may repeat every 2 to 3 minutes until patient responds, # 1 each, 0 Refills, Soft Stop, 11/25/22 9:21:00 EST, [email or web address] #12651, Partial fill upon patient requestif the prescription is for a schedule II opioid alva... Start Date: 11/25/22 Status: Ordered omeprazole 20 mg oral enteric coated capsule 1 capsule, By Mouth, Daily, # 90 capsule, 1 Refills, Maintenance, 05/16/24 10:34:00 EDT, [facility], 158, cm, 05/08/24 10:56:00 EDT, Height, 63.5, kg, 07/09/23 13:09:00 EDT, Dry Weight Start Date: 05/16/24 Status: Ordered oxyCODONE 10 mg oral tablet See Instructions, 0.5-1 tablet By Mouth Every 4 hours, max 4 tabs in 24 hours, # 112 tablet, 0 Refills, Maintenance, 05/17/24 10:12:00 EDT, [facility]/pharmacy #1291, 158, cm, 05/08/24 10:56:00 EDT, Height,63.5, kg, 07/09/23 13:09:00 EDT, Dry Weight, 4, tablet Start Date: 05/17/24 Status: Ordered OxyCONTIN 10 mg oral tablet, extended release 10 mg, 1, tablet, By Mouth, Every 12 hours, CALENDAR, # 56 tablet, Refills 0, Tot. Refills 0, Maintenance, 05/17/24 10:12:00 EDT, Route to Pharmacy Electronically, [facility]/pharmacy #[id number], Partial fill upon patient request; CALENDAR, 158, cm, 05/08/24 10:5... Start Date: 05/17/24 Status: Ordered simvastatin 20 mg oral tablet 20 mg, 1, tablet, By Mouth, Daily at bedtime, # 90 tablet, Refills 1, Tot. Refills 1, Maintenance, 02/22/24 13:47:00 EDT, Route to Pharmacy Electronically, [facility]/pharmacy #[id number], Partial fill upon patient request if the prescription is for a schedule II... Start Date: 02/22/24 Status: Ordered traZODone 100 mg oral tablet 1, tablet, By Mouth, Daily at bedtime, PRN, # 90 tablet, Refills 1, Maintenance, NEEDED FOR SLEEP, 05/09/24 15:49:00 EDT, Route to Pharmacy Electronically, [facility] 91405, 158, cm, 05/08/24 10:56:00 EDT, Height, 63.5, [...] Active Pituitary microadenoma, 4mm Confirmed 2020 Active group home prescription opiate use Confirmed Active Raynaud's syndrome [...] Primary Care Nurse Name: Liudmila Andujar Position: [facility] Furnace Clerk Member Role: Distribution Supervisor Name: Alba Moore MD Position: [facility] Physician - Primary Care Member Role: PCP Address: Address: [address] [place] [address] [address] [place], [place] [address] Name: Traci Alder RN Position: [facility] RN Member Role: Primary Care Nurse Care Team Related Persons Name: ROGERS VELASQUEZ Address: home [address] [place] [address] Name: OMI VELASQUEZ Address: home [address] [place] [address] Name: ANGELA VELASQUEZ Address: home [address] [place] [address]
--- OUTSIDE RECORDS SUMMARY | 2024-07-01 17:10 | XMS_ITS | Continuity of Care Document ---
Author Organization [facility] Address [address] [place] [address]- Care Team Providers Care Rn Discharge Name Role Phone Oscar MCMANUS, Alba Primary Care Physician [facility]counter [facility] Date(s): 11/30/23 - 01/08/[facility] [address] [place] [address] Attending Physician: Nikolai Holbrook MD Admitting Physician: Nikolai Holbrook MD Allergies, Adverse Reactions, Alerts Substance Reaction [...] Diphth-Tetanus Toxoids Adsorbed(oldterm) 08/22/08 Given 1Result Comment: [facility] [id number] 2[facility] 3Admin Note: sarah 4Result Comment: [id number] 5Admin Note: [facility] Medications ClearLax oral powder for reconstitution 1 scoop, By Mouth, Daily, PRN Constipation, dissolve in water or juice, # 527 Gm, 5 Refills, Maintenance, 11/25/19 12:24:00 EST, [facility] #[id number], 1 scoop By Mouth Daily,PRN:Constipation,Instr:dissolve in water or juice, 158, cm, 09/30/19 1... Start Date: 11/25/19 Status: Ordered EpiPen 2-Minor 0.3 mg injectable kit See Instructions, Intramuscular Once, # 1 each, 1 Refills, Soft Stop, 07/08/21 14:29:00 EDT, [facility] #[id number], 158, cm, 06/28/21 11:31:00 EDT, Height, 65.7, kg, 06/16/21 13:22:00 EDT, Dry Weight Start Date: 07/08/21 Status: Ordered Estrace Vaginal Cream 0.1 mg/g 1 gram, Vaginally, Daily at bedtime, Apply daily at bedtime for 2 weeks and then 2 times per week, # 42 Gm, 3 Refills, Maintenance, 07/15/23 15:07:00 EDT, [facility] #[id number], 158, cm, 07/15/23 14:57:00 EDT, Height, 63.5, [...] 05/04/23 14:23:00 EDT, Route to Pharmacy Electronically, [facility] #[id number], 158, cm, 04/01/23 7:42:00 EDT, Height, 64, kg, 07/10/21 9:37:00 EDT, Dry Weight Start Date: 05/04/23 Status: Ordered Myrbetriq 25 mg oral tablet, extended release 1 tablet = 25 mg, By Mouth, Daily, # 30 tablet, 5 Refills, Maintenance, 07/15/23 15:07:00 EDT, [facility] #[id number], Partial fill upon patient request if the prescription is for a schedule II opioid drug., 158, cm, 07/15/23 14:57:00 EDT, Height... Start Date: 07/15/23 Status: Ordered Narcan 4 mg/0.1 mL nasal spray = 4 mg, Nares, Both, Once, may repeat every 2 to 3 minutes until patient responds, # 1 each, 0 Refills, Soft Stop, 11/25/22 9:21:00 EST, [facility] #[id number], Partial fill upon patient requestif the prescription [...] tablet, 0 Refills, Maintenance, 12/17/23 15:39:00 EST, [facility], CALENDAR, 158, cm, 12/07/23 12:03:00 EST, Height, 63.5, kg, 07/09/23 13:09:... Start Date: 12/17/23 Stop Date: 12/19/23 Status: Ordered oxyCODONE 10 mg oral tablet See Instructions, CALENDAR. 0.5-1 tablet By Mouth Every 4 hours, max 4 tabs in 24 hours, # 112 tablet, 0 Refills, Maintenance, 12/16/23 12:47:00 EST, [facility]/pharmacy #[id number], CALENDAR, 158, cm, 12/07/23 12:03:00 EST, Height, 63.5, kg, 07/09/23 13:09:00 EDT... Start Date: 12/16/23 Status: Ordered OxyCONTIN 10 mg oral tablet, extended release 10 mg, 1, tablet, By Mouth, Every 12 hours, CALENDAR, # 56 tablet, Refills 0, Tot. Refills 0, Maintenance, 12/17/23 15:39:00 EST, Route to Pharmacy Electronically, [facility], Partial fill upon patient request; CALENDAR, 158, cm, ... Start Date: 12/17/23 Stop Date: 12/19/23 Status: Ordered OxyCONTIN 10 mg oral tablet, extended release 10 mg, 1, tablet, By Mouth, Every 12 hours, CALENDAR, # 56 tablet, Refills 0, Tot. Refills 0, Maintenance, 12/16/23 12:47:00 EST, Route to Pharmacy Electronically, [facility]/pharmacy #[id number], Partial fill upon patient request; CALENDAR, 158, cm, 12/07/23 12:0... Start Date: 12/16/23 Status: Ordered simvastatin 20 mg oral tablet 20 mg, 1, tablet, By Mouth, Daily at bedtime, # 90 tablet, Refills 1, Tot. Refills 1, Maintenance, 12/07/23 13:01:00 EST, Route to Pharmacy Electronically, [facility]/pharmacy #[id number], Partial fill upon patient request if the prescription is for a schedule II... Start Date: 12/07/23 Status: Ordered traZODone 100 mg oral tablet 100 mg, 1, tablet, By Mouth, Daily at bedtime, PRN, # 30 tablet, Refills 1, Tot. Refills 1, Maintenance, Sleep, 11/09/23 9:29:00 EST, Route to Pharmacy Electronically, [facility] #[id number], Partial fill upon patient request if the prescription... Start Date: 11/09/23 Status: Ordered Ventolin HFA 108 mcg/inh inhalation aerosol with adapter 2 puffs, Inhalation, Every 4 hours, PRN Wheezing/Shortness of Breath, # 1 each, 5 Refills, Maintenance, 05/20/23 12:01:00 EDT, [facility] #[id number], Asthma J45.909;, 158, cm, 04/01/23 7:42:00 EDT, [...] Team Personnel Name: Kaykay Craft [place] Position: [facility] RN Member Role: Primary Care Nurse Name: Oscar MCMANUS, Alba Position: [facility] Physician - Primary Care Member Role: PCP Address: Address: [address] [place] [address] 3rd [place] [address]- Name: Vitor MILLER, Traci Position: [facility] Hospital Booking Manager Member Role: Primary Care Nurse Care Team Related Persons Name: ROGERS VELASQUEZ Address: home [address] [place] [address] Name: OMI VELASQUEZ Address: home [address] [place] [address] Name: ANGELA VELASQUEZ Address: home [address] [place] [address]
--- OUTSIDE RECORDS SUMMARY | 2024-07-01 17:10 | XMS_ITS | Continuity of Care Document ---
Author Organization [facility] Address [address] [place] [address]- Care Team Providers Care Quality Eng Name Role Phone Oscar MCMANUS, Alba Primary Care Physician [facility]counter [facility] Date(s): 05/13/24 - 06/12/24 [facility] [address] [place] [address]- Allergies, Adverse Reactions, Alerts Substance Reaction Severity [...] Diphth-Tetanus Toxoids Adsorbed(oldterm) 08/22/08 Given 1Result Comment: [facility] [id number] 2Result Comment: [facility] [id number] 3Admin Note: [facility] 4Admin Note: sarah 5Result Comment: [id number] 6Admin Note: [facility] Medications Albuterol (Eqv-Ventolin HFA) 90 mcg/inh inhalation aerosol See Instructions, INHALE 2 PUFFS BY MOUTH EVERY 4 HOURS NEEDED FOR WHEEZING OR SHORTNESS OF BREATH, # 18 each, 5 Refills, Maintenance, 02/22/24 17:04:00 EDT, [facility] 68659, 30, INHALE 2 PUFFS BYMOUTH EVERY 4 [...] 1 Refills, Soft Stop, 07/08/21 14:29:00 EDT, [facility] #[id number], 158, cm, 06/28/21 11:31:00 EDT, Height, 65.7, [...] Soft Stop, 11/25/22 9:21:00 EST, [id number], Partial fill upon patient requestif the prescription is for a schedule II opioid alva... Start Date: 11/25/22 Status: Ordered omeprazole 20 mg oral enteric coated capsule 1 capsule, By Mouth, Daily, # 90 capsule, 1 Refills, Maintenance, 05/16/24 10:34:00 EDT, [facility] 30149, 158, cm, 05/08/24 10:56:00 EDT, Height, 63.5, kg, 07/09/23 13:09:00 EDT, Dry Weight Start Date: 05/16/24 Status: Ordered oxyCODONE 10 mg oral tablet See Instructions, 0.5-1 tablet By Mouth Every 4 hours, max 4 tabs in 24 hours, # 112 tablet, 0 Refills, Maintenance, 05/17/24 10:12:00 EDT, [facility]/pharmacy #[id number], 158, cm, 05/08/24 10:56:00 EDT, Height,63.5, kg, 07/09/23 13:09:00 EDT, Dry Weight, 4, tablet Start Date: 05/17/24 Status: Ordered OxyCONTIN 10 mg oral tablet, extended release 10 mg, 1, tablet, By Mouth, Every 12 hours, CALENDAR, # 56 tablet, Refills 0, Tot. Refills 0, Maintenance, 05/17/24 10:12:00 EDT, [facility], 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 Office Staff Member Role: Primary Care Nurse Name: Liudmila Andujar Position: [facility] Carpet Repairer Member Role: Escrow Assistant Name: Alba Moore MD Position: [facility] Physician - Primary Care Member Role: PCP Address: Address: [address] [place] [address] [address] [place] [address]- Name: Traci Adler RN Position: [facility] RN Member Role: Primary Care Nurse Care Team Related Persons Name: ROGERS VELASQUEZ Address: home [address] [place] [address] Name: OMI VELASQUEZ Address: home [address] [place] [address] Name: ANGELA VELASQUEZ Address: home [address] [place] [address]
--- OUTSIDE RECORDS SUMMARY | 2024-07-01 17:11 | XMS_ITS | Continuity of Care Document ---
Author Organization [facility] Adult Address [address] [place] [address]- Care Team Providers Care Personal Lines Advisor Name Role Phone Alba Moore MD Primary Care Physician Encounter [facility] Date(s): 03/21/24 - 03/28/24 [facility] [address] [place] [address]- Encounter Diagnosis Chronic back pain(Discharge Diagnosis) - 03/21/24 Lumbar degenerative disc disease(Discharge Diagnosis) - 03/21/24 E. coli UTI(Discharge Diagnosis) - 03/21/24 snf prescription opiate use(Discharge Diagnosis) - 03/21/24 Attending Physician: Alba Moore MD Allergies, Adverse [...] Diphth-Tetanus Toxoids Adsorbed(oldterm) 08/22/08 Given 1Result Comment: [facility] [id number] 2Admin Note: [facility] 3Admin Note: sarah 4Result Comment: [id number] 5Admin Note: [facility] Medications Albuterol (Eqv-Ventolin HFA) 90 mcg/inh inhalation aerosol See Instructions, INHALE 2 PUFFS BY MOUTH EVERY 4 HOURS NEEDED FOR WHEEZING OR SHORTNESS OF BREATH, # 18 each, 5 Refills, Maintenance, 02/22/24 17:04:00 EDT, [facility] 52666, 30, INHALE 2 PUFFS BYMOUTH EVERY 4 HOURS NEEDED FOR WHEEZING OR SHORT... Start Date: 02/22/24 Status: Ordered ClearLax oral powder for reconstitution 1 scoop, By Mouth, Daily, PRN Constipation, dissolve in water or juice, # 527 Gm, 5 Refills, Maintenance, 11/25/19 12:24:00 EST, [facility] #[id number], 1 scoop By Mouth Daily,PRN:Constipation,Instr:dissolve in water or juice, 158, cm, 09/30/19 1... Start Date: 11/25/19 Status: Ordered EpiPen 2-Minor 0.3 mg injectable kit See Instructions, Intramuscular Once, # 1 each, 1 Refills, Soft Stop, 07/08/21 14:29:00 EDT, [facility] #[id number], 158, cm, 06/28/21 11:31:00 EDT, Height, 65.7, kg, 06/16/21 13:22:00 EDT, Dry Weight Start Date: 07/08/21 Status: Ordered Estrace Vaginal Cream 0.1 mg/g 1 gram, Vaginally, Daily at bedtime, Apply daily at bedtime for 2 weeks and then 2 times per week, # 42 Gm, 3 Refills, Maintenance, 03/21/24 9:38:00 EDT, [facility]/pharmacy #[id number], 158, cm, 02/18/24 10:21:00 EDT, [...] 03/21/24 9:38:00 EDT, Route to Pharmacy Electronically, [facility]/pharmacy #[id number], 158, cm, 02/18/24 10:21:00 EDT, Height, 63.5, kg, 07/09/23 13:09:00 EDT, Dry Weight Start Date: 03/21/24 Status: Ordered morphine 15 mg oral tablet, immediate release 1 tablet = 15 mg, By Mouth, Every 6 hours, PRN as needed for pain, for 28 days, NEW BUSINESS CLERK reviewed, # 112tablet, 0 Refills, Acute 04/18/24 10:21:00 EDT, 03/21/24 10:21:00 EDT, Tablet, [facility]/pharmacy #[id number], Partial fill upon patient request if the prescriptio... Start Date: 03/21/24 Stop Date: 04/18/24 Status: Ordered morphine 15 mg/8 to 12 hr oral tablet, extended release 1 tablet = 15 mg, By Mouth, Every 12 hours, NEW BUSINESS CLERK reviewed, # 56 tablet, 0 Refills, Maintenance, 03/21/24 10:21:00 EDT, ER Tablet, [facility]/pharmacy #[id number], Partial fill upon patient request if the prescription is for a schedule II opioid drug. Opioid Switch,... Start Date: 03/21/24 Stop Date: 04/18/24 Status: Ordered Myrbetriq 25 mg oral tablet, extended release 1 tablet = 25 mg, By Mouth, Daily, # 30 tablet, 5 Refills, Maintenance, 03/21/24 9:38:00 EDT, [facility]acy #[id number], Partial fill upon patient request if the prescription is for a schedule II opioid drug., 158, cm, 02/18/24 10:21:00 EDT, Height, 63.5, kg... Start Date: 03/21/24 Status: Ordered Narcan 4 mg/0.1 mL nasal spray = 4 mg, Nares, Both, Once, may repeat every 2 to 3 minutes until patient responds, # 1 each, 0 Refills, Soft Stop, 11/25/22 9:21:00 EST, [facility] #[id number], Partial fill upon patient requestif the prescription [...] Active Pituitary microadenoma, 4mm Confirmed 2020 Active snf prescription opiate use Confirmed Active Raynaud's syndrome Confirmed Active Restless legs syndrome Confirmed 2003 Active Solitary pulmonary nodule Confirmed Active Diagnosis Diagnosis Type Effective Dates Health Status Clinical Service Informant Chronic back pain Discharge Diagnosis 03/21/24 Lumbar degenerative disc disease Discharge Diagnosis 03/21/24 E. 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 Discharge Diagnosis 03/21/24 Vital Signs Most recent to oldest [Reference Range]: 1 Height 158 cm (03/21/24 9:39 AM) Social History Social History Type Response Smoking Status Former smoker; Other : quit 1988; entered on: 02/14/15 Sex Patient Care team information Care Team Personnel Name: Kaykay Craft [place] Position: [facility] Office Staff Member Role: Primary Care Nurse Name: Alba Moore MD Position: [facility] Physician - Primary Care Member Role: PCP Address: Address: [address] [place] [address] [address] [place] [address]- Name: Traci Adler RN Position: [facility] Hospital Inside Polisher Member Role: Primary Care Nurse Care Team Related Persons Name: ROGERS VELASQUEZ Address: home [address] [place] [address] Name: OMI VELASQUEZ Address: home [address] [place] [address] Name: ANGELA VELASQUEZ Address: home [address] [place] [address]
--- OUTSIDE RECORDS SUMMARY | 2024-07-01 17:11 | XMS_ITS | Continuity of Care Document ---
Author Organization [facility] Address [address] [place] [address]- Care Team Providers Care Dress Operator Name Role Phone Oscar MCMANUS, Alba Primary Care Physician [facility] [facility] Date[place]s): 02/22/24 - 03/23/24 [facility] [address] [place] [address]- Allergies, Adverse Reactions, Alerts Substance Reaction Severity [...] 08/22/08 Given 1Result Comment: [facility] [id number] 2Admin Note: [facility] 3Admin Note: sarah 4Result Comment: [id number] 5Admin Note: [facility] Medications Albuterol (Eqv-Ventolin HFA) 90 mcg/inh inhalation aerosol See Instructions, INHALE 2 PUFFS BY MOUTH EVERY 4 HOURS NEEDED FOR WHEEZING OR SHORTNESS OF BREATH, # 18 each, 5 Refills, Maintenance, 02/22/24 17:04:00 EDT, [facility] [id number], 30, INHALE 2 PUFFS BYMOUTH EVERY 4 HOURS NEEDED FOR WHEEZING OR SHORT... Start Date: 02/22/24 Status: Ordered ClearLax oral powder for reconstitution 1 scoop, By Mouth, Daily, PRN Constipation, dissolve in water or juice, # 527 Gm, 5 Refills, Maintenance, 11/25/19 12:24:00 EST, [facility] #[id number], 1 scoop By Mouth Daily,PRN:Constipation,Instr:dissolve in water or juice, 158, cm, 09/30/19 1... Start Date: 11/25/19 Status: Ordered EpiPen 2-Minor 0.3 mg injectable kit See Instructions, Intramuscular Once, # 1 each, 1 Refills, Soft Stop, 07/08/21 14:29:00 EDT, [facility] #[id number], 158, cm, 06/28/21 11:31:00 EDT, Height, 65.7, [...] as needed for pain, for 28 days, SUPERVISOR DUMPING reviewed, # 112tablet, 0 Refills, Acute 04/18/24 10:21:00 EDT, 03/21/24 10:21:00 EDT, Tablet, [facility]/pharmacy #[id number], Partial fill upon patient request if the prescriptio... Start Date: 03/21/24 Stop Date: 04/18/24 Status: Ordered morphine 15 mg/8 to 12 hr oral tablet, extended release 1 tablet = 15 mg, By Mouth, Every 12 hours, SUPERVISOR DUMPING reviewed, # 56 tablet, 0 Refills, Maintenance, 03/21/24 10:21:00 EDT, ER Tablet, [facility]/pharmacy #[id number], Partial fill upon [...] 0 Refills, Soft Stop, 11/25/22 9:21:00 EST, [facility] #[id number], Partial fill upon patient requestif the prescription [...] 02/11/24 11:11:00 EDT, [facility] Pharmacy Electronically, [facility] [...] Active Pituitary microadenoma, 4mm Confirmed 2020 Active intermediate designer prescription opiate use Confirmed Active Raynaud's syndrome Confirmed Active Restless legs syndrome Confirmed 2003 Active Solitary pulmonary nodule Confirmed Active Social History Social History Type Response Smoking Status Former smoker; Other : quit 1988; entered on: 02/14/15 Sex Patient Care team information Care Team Personnel Name: Kaykay Craft [place] Position: [facility] Office Staff Member Role: Primary Care Nurse Name: Oscar MCMANUS, Alba Position: [facility] Physician - Primary Care Member Role: PCP Address: Address: [address] [place] [address]- Name: Vitor MILLER, Traci Position: [facility] Hospital Field Artillery Operations Specialist Member Role: Primary Care Nurse Care Team Related Persons Name: ROGERS VELASQUEZ Address: home [address] [place] [address] Name: OMI VELASQUEZ Address: home [address] [place] [address] Name: ANGELA VELASQUEZ Address: home [address] [place] [address]
--- OUTSIDE RECORDS SUMMARY | 2024-07-01 17:11 | XMS_ITS | Continuity of Care Document ---
Author Organization [facility] Address [address] [place] [address]- Care Team Providers Care Manager Secondary Name Role Phone Oscar MCMANUS, Alba Primary Care Physician Encounter [facility] Date(s): 03/23/24 - 04/30/[address] [address]- Attending Physician: Alba Moore MD Admitting Physician: [...] Diphth-Tetanus Toxoids Adsorbed(oldterm) 08/22/08 Given 1Result Comment: [facility] [id number] 2Admin Note: [facility] 3Admin Note: sarah 4Result Comment: [id number] 5Admin Note: [facility] Medications Albuterol (Eqv-Ventolin HFA) 90 mcg/inh inhalation aerosol See Instructions, INHALE 2 PUFFS BY MOUTH EVERY 4 HOURS NEEDED FOR WHEEZING OR SHORTNESS OF BREATH, # 18 each, 5 Refills, Maintenance, 02/22/24 17:04:00 EDT, [facility] 26[facility], 30, INHALE 2 PUFFS BYMOUTH EVERY 4 HOURS NEEDED FOR WHEEZING OR SHORT... Start Date: 02/22/24 Status: Ordered ClearLax oral powder for reconstitution 1 scoop, By Mouth, Daily, PRN Constipation, dissolve in water or juice, # 527 Gm, 5 Refills, Maintenance, 11/25/19 12:24:00 EST, [facility] #[id number], 1 scoop By Mouth Daily,PRN:Constipation,Instr:dissolve in water [...] 1 Refills, Soft Stop, 07/08/21 14:29:00 EDT, [facility] #[id number], 158, cm, 06/28/21 11:31:00 EDT, Height, 65.7, kg, 06/16/21 13:22:00 EDT, Dry Weight Start Date: 07/08/21 Status: Ordered Estrace Vaginal Cream 0.1 mg/g 1 gram, Vaginally, Daily at bedtime, Apply daily at bedtime for 2 weeks and then 2 times per week, # 42 Gm, 3 Refills, Maintenance, 03/21/24 9:38:00 EDT, [facility]/pharmacy #[id number], 158, cm, 02/18/24 10:21:00 EDT, Height, [...] 9:38:00 EDT, Route to Pharmacy Electronically, [facility]/pharmacy #[id number], 158, cm, 02/18/24 10:21:00 EDT, Height, 63.5, kg, 07/09/23 13:09:00 EDT, Dry Weight Start Date: 03/21/24 Status: Ordered Myrbetriq 25 mg oral tablet, extended release 1 tablet = 25 mg, By Mouth, Daily, # 30 tablet, 5 Refills, Maintenance, 03/21/24 9:38:00 EDT, [facility]/pharmacy #[id number], Partial fill upon patient request if the prescription is for a schedule II opioid drug., 158, cm, 02/18/24 10:21:00 EDT, Height, 63.5, kg... Start Date: 03/21/24 Status: Ordered Narcan 4 mg/0.1 mL nasal spray = 4 mg, Nares, Both, Once, may repeat every 2 to 3 minutes until patient responds, # 1 each, 0 Refills, Soft Stop, 11/25/22 9:21:00 EST, [facility] #[id number], Partial fill upon patient requestif the prescription is for a schedule II opioid alva... Start Date: 11/25/22 Status: Ordered omeprazole 20 mg oral enteric coated capsule 1 capsule = 20 mg, By Mouth, Daily, # 90 capsule, 0 Refills, Maintenance, 03/21/24 9:36:00 EDT, EC Capsule, [facility]/pharmacy #[id number], 158, cm, 02/18/24 10:21:00 EDT, Height, 63.5, kg, 07/09/23 13:09:00 EDT, Dry Weight Start Date: 03/21/24 Stop Date: 06/19/24 Status: Ordered oxyCODONE 10 mg oral tablet See Instructions, 0.5-1 tablet By Mouth Every 4 hours, max 4 tabs in 24 hours, # 112 tablet, 0 Refills, Maintenance, 04/20/24 17:27:00 EDT, [id number], 158, cm, 03/21/24 9:39:00 EDT, Height, 63.5, kg, 07/09/23 13:09:00 EDT, Dry Weight, 4, tablet Start Date: 04/20/24 Status: Ordered OxyCONTIN 10 mg oral tablet, extended release 10 mg, 1, tablet, By Mouth, Every 12 hours, CALENDAR, # 56 tablet, Refills 0, Tot. 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 Confirmed Active Raynaud's syndrome Confirmed Active Restless legs syndrome Confirmed 2003 Active Solitary pulmonary nodule Confirmed Active Social History Social History Type Response Smoking Status Former smoker; Other : quit 1988; entered on: 02/14/15 Sex Patient Care team information Care Team Personnel Name: Kaykay Craft [place] Position: [facility] Office Staff Member Role: Primary Care Nurse Name: Oscar MCMNAUS, Alba Position: [facility] Physician - Primary Care Member Role: PCP Address: Address: [address] [place] [address] [address] [place] [address]- Name: Vitor MILLER, Traci Position: [facility] Hospital Test Operator Member Role: Primary Care Nurse Care Team Related Persons Name: ROGERS VELASQUEZ Address: home [address] [place] [address] Name: OMI VELASQUEZ Address: [address] [place] [address] Name: ANGELA VELASQUEZ Address: home [address] [place] [address]
--- OUTSIDE RECORDS SUMMARY | 2024-07-01 17:11 | XMS_ITS | Continuity of Care Document ---
Author Organization [facility] Adult Address [address] [place] [address]- Care Team Providers Care Quality Assurance Name Role Phone Oscar MCMANUS, Alba Primary Care Physician Encounter [facility] Date(s): 05/09/24 - 06/08/24 [facility] [address] [place] [id number] Allergies, Adverse Reactions, Alerts Substance Reaction Severity Status sulfa drugs Active Latex Active Kiwi Active iodinated radiocontrast dyes Active Cipro hives [...] Diphth-Tetanus Toxoids Adsorbed(oldterm) 08/22/08 Given 1Result Comment: [facility] [id number] 2Result Comment: [facility] [id number] 3Admin Note: [facility] 4Admin Note: sarah 5Result Comment: [id number] 6Admin Note: [facility] Medications Albuterol (Eqv-Ventolin HFA) 90 mcg/inh inhalation aerosol See Instructions, INHALE 2 PUFFS BY MOUTH EVERY 4 HOURS NEEDED FOR WHEEZING OR SHORTNESS OF BREATH, # 18 each, 5 Refills, Maintenance, 02/22/24 17:04:00 EDT, [id number], 30, INHALE 2 PUFFS BYMOUTH EVERY 4 [...] 1 Refills, Soft Stop, 07/08/21 14:29:00 EDT, [facility] #[id number], 158, cm, 06/28/21 11:31:00 EDT, Height, 65.7, [...] 0 Refills, Soft Stop, 11/25/22 9:21:00 EST, [id number], Partial fill upon patient requestif the prescription is for a schedule II opioid alva... Start Date: 11/25/22 Status: Ordered omeprazole 20 mg oral enteric coated capsule 1 capsule, By Mouth, Daily, # 90 capsule, 1 Refills, Maintenance, 05/16/24 10:34:00 EDT, [facility] [id number], 158, cm, 05/08/24 10:56:00 EDT, Height, 63.5, kg, 07/09/23 13:09:00 EDT, Dry Weight Start Date: 05/16/24 Status: Ordered oxyCODONE 10 mg oral tablet See Instructions, 0.5-1 tablet By Mouth Every 4 hours, max 4 tabs in 24 hours, # 112 tablet, 0 Refills, Maintenance, 05/17/24 10:12:00 EDT, [facility]/pharmacy #[id number], 158, cm, 05/08/24 10:56:00 EDT, Height,63.5, kg, 07/09/23 13:09:00 EDT, Dry Weight, 4, tablet Start Date: 05/17/24 Status: Ordered OxyCONTIN 10 mg oral tablet, extended release 10 mg, 1, tablet, By Mouth, Every 12 hours, CALENDAR, # 56 tablet, Refills 0, Tot. Refills 0, Maintenance, 05/17/24 10:12:00 EDT, [facility] to [facility] Electronically[id number], 158, cm, 05/08/24 10:56:00 EDT, Height, 63.5, [...] Active Pituitary microadenoma, 4mm Confirmed 2020 Active meterman prescription opiate use Confirmed Active Raynaud's syndrome Confirmed Active Restless legs syndrome Confirmed 2003 Active Solitary pulmonary nodule Confirmed Active Social History Social History Type Response Smoking Status Former smoker; Other : quit 1988; entered on: 02/14/15 Sex Patient Care team information Care Team Personnel Name: Kaykay Craft [place] Position: [facility] Office Staff Member Role: Primary Care Nurse Name: Liudmila Andujar Position: [facility] Behavioral Services Tech Member Role: Marketing Technology Specialist Name: Alba Moore MD Position: [facility] Physician - Primary Care Member Role: PCP Address: Address: [address] [place] [address] [address] [place] [address]- Name: Traci Adler RN Position: [facility] RN Member Role: Primary Care Nurse Care Team Related Persons Name: ROGERS VELASQUEZ Address: [address] [place] [address] Name: OMI VELASQUEZ Address: home [address] [place] [address] Name: ANGELA VELASQUEZ Address: home [address] [place] [address]
[2024-07-01 17:22] LABS: MANUAL DIFF FLAG NO
[2024-07-01 17:39] LABS: Alanine Aminotransferase 14 U/L (0-31); Albumin Level 3.9 g/dL (3.5-5.0); Alkaline Phosphatase 90 U/L (39-117); Anion Gap 9 (12-20); Aspartate Amino Transferase 18 U/L (5-31); Bilirubin Total 0.3 mg/dL (0.0-1.0); Blood Urea Nitrogen 9 mg/dL (9-16); Calcium 9.2 mg/dL (8.4-10.2); Carbon Dioxide 31 mmol/L (22-29); Chloride 100 mmol/L (96-108); Creatinine Clr Calc Pharmacy 51.6; Estimated Glomerular Filt Rate > 60; Glucose Random 88 mg/dL (60-115); Potassium 4.5 mmol/L (3.3-5.1); Sodium 135 mmol/L (135-145)
[2024-07-01 17:40] LABS: Basophils Percent Auto 0.9 % (0-2); Eosinophils Absolute Auto 0.2 X10*3/uL (0.0-0.4); Eosinophils Percent Auto 3.6 % (0-4); Hematocrit 38.1 % (37.0-47.0); Hemoglobin 12.5 g/dl (12.0-16.0); Imm Gran Abs Auto 0.01 X10*3/uL (0.00-0.03); Imm Gran Pct Auto 0.2 % (0.0-0.4); Lymphocytes Percent Auto 21.2 % (20-40); Mean Corpuscular HGB Conc 32.8 g/dl (31.0-35.0); Mean Corpuscular Hemoglobin 28.3 pg (27.0-33.0); Mean Corpuscular Volume 86.2 fL (80.0-98.0); Mean Platelet Volume 8.9 fL (9.4-12.3); Monocytes Absolute Auto 0.6 X10*3/uL (0.1-1.2); Monocytes Percent Auto 13.3 % (2-11); Neutrophils Absolute Auto 2.8 x10*3/uL (2.0-8.3); Neutrophils Percent Auto 60.8 % (45-73); Platelet Count 255 X10*3/uL (160-400); Red Blood Count 4.42 X10*6/uL (4.20-5.50); Red Cell Distribution Width 13.4 % (11.0-16.0); White Blood Count 4.7 X10*3/uL (4.8-10.8)
--- NOTE | 2024-07-01 18:54 | PC.NURSE ---
Pt. left without discharge paperwork.
[2024-07-01 18:55] VITALS: BP 145/66; PULSE 64; RESP 18; TEMP 36.7; O2SAT 97
== END 2024-07-01 18:56 | disposition home or self-care (01) ==
PROVIDERS: Physician Assistant Medical; Emergency Provider Emergency Medicine
DX: N39.0 Urinary tract infection, site not specified (principal); R30.0 Dysuria; R10.30 Lower abdominal pain, unspecified; Z79.899 Other long term (current) drug therapy
CPT/HCPCS: 36415; 80053; 85025; 99282; 99283